=== PATIENT | female | born 1935 | race Caucasian/White ===

== ENCOUNTER → 2019-05-03 16:45 | Outpatient (CLI) | payer OTHER, SELFPAY ==
--- NOTE | 2019-05-03 | DI.MRI.S_ITS ---
PROCEDURE: MR CERVICAL SPINE WO CON INDICATIONS: Aphasia TECHNIQUE: Noncontrast sagittal T1 spin echo and T2 fast spin echo, sagittal STIR, foraminal oblique sagittal T2 fast spin echo, and axial gradient echo or T2 fast spin echo through the cervical spine. COMPARISON: None. FINDINGS: Image quality: Excellent. Alignment and Curvature: There is mild straightening of normal cervical lordosis. Minimal anterolisthesis of C7 on T1 and T1 on T2 is seen measures up to 2 mm. Bone Marrow: Marrow demonstrates normal overall signal. Vertebral body heights are preserved. Spinal Cord: Visualized spinal cord has normal size and signal. No cerebellar tonsillar herniation. Paraspinous Soft Tissues: No paravertebral masses. Prevertebral soft tissues are normal in thickness. C2-C3: Normal appearance. C3-C4: Mild broad-based disc bulge and right worse than left bilateral facet v changes are seen causing mild central canal stenosis right worse than left bilateral neuroforaminal narrowing. There is likely compression of exiting right C4 nerve root. C4-C5: Decreased intervertebral disc space and degenerative endplate changes are seen. Proptosis bulge and bilateral facet hypertrophic changes are seen causing mild to moderate central canal stenosis and right worse than left bilateral neuroforaminal narrowing. There is likely compression of exiting right C5 nerve root. C5-C6: Decreased intervertebral disc space and degenerative endplate changes are seen. Broad-based disc bulge and bilateral facet hypertrophic changes are seen causing mild/moderate central canal stenosis and bilateral neuroforaminal narrowing. There is likely compression of bilateral exiting C6 nerve roots. C6-C7: Broad-based disc bulge and bilateral facet hypertrophic changes are seen. Decreased intervertebral disc space is also noted. There is moderate central canal stenosis and moderate to severe bilateral neuroforaminal narrowing. There is likely compression of bilateral C7 nerve root. C7-T1: Normal appearance. IMPRESSION: 1. Degenerative disc bulge and bilateral facet hypertrophic changes at C3-4 through C6-7 levels causing mild to moderate central canal stenosis and right worse than left bilateral neuroforaminal narrowing as described above. 2. Minimal anterolisthesis of C7 on T1 and T1 on T2. No marrow edema. No acute compression fracture. No abnormal cervical spinal cord signal. Dictated by: Ortiz Johnson M.D. on 05/04/2019 at 9:35 Approved by: Ortiz Johnson M.D. on 05/04/2019 at 9:39
== END ==
PROVIDERS: Family Provider Family Medicine; PCP Family Medicine; Visit Provider Nurse Practitioner Family
DX: R47.01 Aphasia (principal); M50.21 Other cervical disc displacement, high cervical region; M48.02 Spinal stenosis, cervical region
CPT/HCPCS: 72141

== ENCOUNTER 2019-08-27 11:42 | Emergency (ER) | payer MEDICARE, SELFPAY ==
[2019-08-27 12:00] VITALS: BP 117/78; PULSE 98; RESP 24; TEMP 36.5; O2SAT 98; BMI 27.4
--- NOTE | 2019-08-27 12:12 | ED_ITS ---
HPI - General Adult General Chief complaint: Upper Respiratory Symptoms Stated complaint: Breathing Problems Time Seen by Provider: 08/27/19 12:12 Source: patient and family Mode of arrival: Wheelchair History of Present Illness HPI narrative: 84-year-old woman sent over from [place] with a history of recent lumbar surgery and continued radicular pain down the left leg, poor sleep due to pain, mild speech fluency difficulties after a ?TIA? approximately 1 year ago. Was apparently diagnosed with bilateral pneumonia on August 21, started on levaquin and inhalers. Frank virus was tested and that test is negative. She is increasingly short of breath, no fevers. Comes to the ER for additional evaluation. Related Data Home Medications Medication Instructions Recorded Confirmed cholecalciferol (vitamin D3) Q DAY #0 01/08/16 magnesium oxide 400 mg PO Q DAY #0 01/08/16 [BANDEROL] #0 07/13/16 [COENZYME Q 10] #0 07/13/16 [DHEA] #0 07/13/16 [HOMOCYSTINE SUPREME] #0 07/13/16 [PROBIOTIC] #0 07/13/16 [SAMENTO] #0 07/13/16 azithromycin [Zithromax Z-Doc] 250 mg PO QDAY PRN #0 07/13/16 melatonin 5 mg #0 07/13/16 vit c-ascorbate Ca-ascorb sod 500 mg PO #0 07/13/16 [Vitamin C] Previous Rx's Medication Instructions Recorded gabapentin 100 mg PO TID #90 cap 05/05/16 trazodone 100 mg PO HS #90 tab 06/11/16 gabapentin [Neurontin] 0 PO HS #30 cap 06/16/16 hydrocodone-acetaminophen 1 tab PO SEE INSTRUCTIONS #84 tab 07/13/16 furosemide [Lasix] 20 mg PO DAILY #30 tab 08/27/19 potassium chloride 10 meq PO DAILY #30 tab 08/27/19 Allergies Allergy/AdvReac Type Severity Reaction Status Date / Time No Known Drug Allergies Allergy Verified 08/27/19 15:53 Review of Systems Review of Systems Narrative: Increasing ataxia with 3 non injury falls over the last couple of days, dizziness, increased somnolence, constipation. She does note that she has continued shooting radicular pain down the left leg despite recent changes to medication regimen. Denies ? fever ? cough ? cold ? chills ? chest pain ? dyspnea ? orthopnea ? wheezing ? abdominal pain ? change to bowel or bladder habits ? nausea vomiting ? skin changes ? rashes Patient History Medical History (Updated 08/27/19 @ 15:37 by Poly Awad MD) Breast cancer (Acute) TIA (transient ischemic attack) (Acute) Surgical History (Updated 10/11/17 @ 05:32 by Conversion Provider) History of carpal tunnel repair Status post bunionectomy Status post hysterectomy Status post knee surgery Status post partial mastectomy Family History (Updated 01/08/16 @ 00:00 by Conversion Provider) Father Stroke Grandfather Stroke Social History Smoking Status: Never smoker Smoking Status: Never smoker Substance Use Type: does not use Exam Narrative Exam Narrative: General: Healthy appearing, in no acute distress. Able to give a complete and coherent history. Well-nourished well-developed HEENT: Moist mucous membranes, normal sclera with reactive pupils, Neck: No JVD, supple Respiratory: Lungs with minor scattered wheezing and minor basilar rales, no rhonchi. Full and symmetrical air movement Cardiac: Regular rate and rhythm no murmurs no bruits Abdomen: Soft nontender good bowel tones, no flank pain Skin: Warm and dry, no rashes Neurologic: Grossly neurologically intact with no obvious asymmetries or abnormalities Extremities: No trauma, well perfused, no lower extremity edema Psych: Cooperative, appropriate insight and affect Initial Vital Signs Initial Vital Signs: Vital Signs Temperature 97.7 F 08/27/19 12:00 Pulse Rate 98 H 08/27/19 12:00 Respiratory Rate 24 08/27/19 12:00 Blood Pressure 117/78 08/27/19 12:00 Pulse Oximetry 98 08/27/19 12:00 Course Orders Ordered: ED Orders 08/27/19 11:53 Respiratory Panel (Film Array) Stat 08/27/19 12:16 XR chest 1V Stat EKG-12 Lead Stat 08/27/19 13:28 Complete Blood Count AUTO DIFF Stat Comprehensive Metabolic Panel Stat Lactate (Lactic Acid) Stat Lipase Stat Magnesium Stat NT-proBNP (BNP-Adult 18+) Stat Procalcitonin Stat Troponin I Stat 08/27/19 13:37 Blood Culture Stat 08/27/19 15:09 EC echo doppler complete Stat Discontinued Medications Acetaminophen (Tylenol) 650 mg PO NOW ONE Stop: 08/27/19 15:38 Last Admin: 08/27/19 15:43 Dose: 650 mg Documented by: JASMIN Furosemide (Lasix) 40 mg IV NOW ONE Stop: 08/27/19 14:48 Last Admin: 08/27/19 15:17 Dose: 40 mg Documented by: JASMIN Gabapentin (Neurontin) 1,200 mg PO NOW ONE Stop: 08/27/19 14:39 Last Admin: 08/27/19 15:14 Dose: 300 mg Documented by: JASMIN Sodium Chloride (Normal Saline 0.9%) 1,000 mls @ 1,000 mls/hr IV BOLUS ONE Stop: 08/27/19 13:14 Last Admin: 08/27/19 13:23 Dose: 1,000 mls/hr Documented by: ANJALI Oxycodone HCl (Percolone) 5 mg PO NOW ONE Stop: 08/27/19 14:39 Last Admin: 08/27/19 14:55 Dose: 5 mg Documented by: JASMIN Vital Signs Vital signs: Vital Signs - 8 hr 08/27/19 12:00 08/27/19 14:14 08/27/19 14:35 Temperature 97.7 F Pulse Rate 98 H 91 H 91 H Respiratory Rate 24 20 Blood Pressure 117/78 Blood Pressure [Right Arm] 142/65 H 152/72 H Pulse Oximetry 98 98 100 08/27/19 16:00 Temperature Pulse Rate 92 H Respiratory Rate 18 Blood Pressure Blood Pressure [Right Arm] 136/65 Pulse Oximetry 98 Medical Decision Making Medical Records Medical records reviewed: Yes I reviewed the patient's medical records. Lab Data Lab results reviewed: Yes I reviewed the patient's lab results. Result diagrams: 08/27/19 13:28 08/27/19 13:28 Labs: Lab Results 08/27/19 08/27/19 08/27/19 Range/Units 11:53 13:28 13:28 WBC 8.7 (4.5-11.0) X10^3/uL RBC 4.26 (4.0-5.2) X10^6/uL Hgb 12.0 (12.0-16.0) g/dL Hct 37.3 (36-46) % MCV 87.5 (80-100) fL MCH 28.3 (26-34) PG MCHC 32.3 (30-36) % RDW 14.3 (11.6-14.8) % Plt Count 570 H (150-400) X10^3/uL Neut % (Auto) 76.9 H (50-75) % Lymph % (Auto) 11.0 L (25-40) % [place] % (Auto) 9.2 (3-14) % Eos % (Auto) 2.1 (2-4) % Baso % (Auto) 0.8 (0-2) % Neut # (Auto) 6600 (5144-6089) /uL Lymph # (Auto) 1000 L (4118-6239) /uL [place] # (Auto) 800 (0-900) /uL Eos # (Auto) 200 (0-450) /uL Baso # (Auto) 100 (0-100) /uL Sodium (137-145) mmol/L Potassium (3.4-5.1) mmol/L Chloride (98-107) mmol/L Carbon Dioxide (22-32) mmol/L BUN (7-17) mg/dL Creatinine (0.52-1.04) mg/dL Estimated GFR (>60) mL/min BUN/Creatinine Ratio (6-22) Glucose (80-110) mg/dL Lactate (0.7-2.1) mmol/L Calcium (8.4-10.2) mg/dL Magnesium (1.6-2.3) mg/dL Total Bilirubin (0.2-1.3) mg/dL AST (14-36) IU/L ALT (<35) IU/L Alkaline Phosphatase (38-126) U/L Troponin I (0.01-0.034) ng/mL NT-Pro-B Natriuret Pep 1980 H (<450) pg/mL Total Protein (6.3-8.2) g/dL Albumin (3.5-5.0) g/dL Globulin (1.7-4.1) g/dL Albumin/Globulin Ratio (1.0-2.8) Lipase (23-300) U/L Procalcitonin (<0.5) ng/mL Chlamy pneumoniae PCR Not detected (Not Detect) Adenovirus (PCR) Not detected (Not Detect) B.parapertussis DNA PCR Not detected (Not Detect) Coronavirus OC43 (PCR) Not detected (Not Detect) Coronavirus HKU1 (PCR) Not detected (Not Detect) Coronavirus 229E (PCR) Not detected (Not Detect) Coronavirus NL63 (PCR) Not detected (Not Detect) Human Metapneumovir PCR Not detected (Not Detect) Influenza Type A (PCR) Not detected (Not Detect) Influenza Type B (PCR) Not detected (Not Detect) M. pneumoniae (PCR) Not detected (Not Detect) Parainfluenza 1 (PCR) Not detected (Not Detect) Parainfluenza 2 (PCR) Not detected (Not Detect) Parainfluenza 3 (PCR) Not detected (Not Detect) Parainfluenza 4 (PCR) Not detected (Not Detect) RSV (PCR) Not detected (Not Detect) Entero/Rhino (PCR) Not detected (Not Detect) 08/27/19 08/27/19 08/27/19 Range/Units 13:28 13:28 13:28 WBC (4.5-11.0) X10^3/uL RBC (4.0-5.2) X10^6/uL Hgb (12.0-16.0) g/dL Hct (36-46) % MCV (80-100) fL MCH (26-34) PG MCHC (30-36) % RDW (11.6-14.8) % Plt Count (150-400) X10^3/uL Neut % (Auto) (50-75) % Lymph % (Auto) (25-40) % [place] % (Auto) (3-14) % Eos % (Auto) (2-4) % Baso % (Auto) (0-2) % Neut # (Auto) (4231-5936) /uL Lymph # (Auto) (7858-3289) /uL [place] # (Auto) (0-900) /uL Eos # (Auto) (0-450) /uL Baso # (Auto) (0-100) /uL Sodium 133 L (137-145) mmol/L Potassium 4.3 (3.4-5.1) mmol/L Chloride 97 L (98-107) mmol/L Carbon Dioxide 29 (22-32) mmol/L BUN 11 (7-17) mg/dL Creatinine 0.97 (0.52-1.04) mg/dL Estimated GFR 54.8 L (>60) mL/min BUN/Creatinine Ratio 11.3 (6-22) Glucose 91 (80-110) mg/dL Lactate 1.0 (0.7-2.1) mmol/L Calcium 9.5 (8.4-10.2) mg/dL Magnesium 2.7 H (1.6-2.3) mg/dL Total Bilirubin 0.5 (0.2-1.3) mg/dL AST 45 H (14-36) IU/L ALT 33 (<35) IU/L Alkaline Phosphatase 132 H (38-126) U/L Troponin I 0.016 (0.01-0.034) ng/mL NT-Pro-B Natriuret Pep (<450) pg/mL Total Protein 7.0 (6.3-8.2) g/dL Albumin 3.9 (3.5-5.0) g/dL Globulin 3.1 (1.7-4.1) g/dL Albumin/Globulin Ratio 1.3 (1.0-2.8) Lipase 88 (23-300) U/L Procalcitonin < 0.05 (<0.5) ng/mL Chlamy pneumoniae PCR (Not Detect) Adenovirus (PCR) (Not Detect) B.parapertussis DNA PCR (Not Detect) Coronavirus OC43 (PCR) (Not Detect) Coronavirus HKU1 (PCR) (Not Detect) Coronavirus 229E (PCR) (Not Detect) Coronavirus NL63 (PCR) (Not Detect) Human Metapneumovir PCR (Not Detect) Influenza Type A (PCR) (Not Detect) Influenza Type B (PCR) (Not Detect) M. pneumoniae (PCR) (Not Detect) Parainfluenza 1 (PCR) (Not Detect) Parainfluenza 2 (PCR) (Not Detect) Parainfluenza 3 (PCR) (Not Detect) Parainfluenza 4 (PCR) (Not Detect) RSV (PCR) (Not Detect) Entero/Rhino (PCR) (Not Detect) Urine Dip Bedside Urine Glucose Negative Bedside Urine Bilirubin - Negative Bedside Urine Ketone - Negative Urine Specific [place] 1.015 Bedside Urine Occult Blood - Negative Bedside Urine pH 7.0 Bedside Urine Protein - Negative Bedside Urine Urobilinogen - Negative Bedside Urine Nitrite - Negative Bedside Urine Leukocytes - Negative Esterase Point of care testing: Urine Dip Bedside Urine Glucose Negative Bedside Urine Bilirubin - Negative Bedside Urine Ketone - Negative Urine Specific [place] 1.015 Bedside Urine Occult Blood - Negative Bedside Urine pH 7.0 Bedside Urine Protein - Negative Bedside Urine Urobilinogen - Negative Bedside Urine Nitrite - Negative Bedside Urine Leukocytes - Negative Esterase Imaging Data Chest x-ray: Radiologist's Impression: IMPRESSION: Mild congestive changes and small bilateral pleural effusion with bibasilar small infiltrates or atelectasis. No gross pneumothorax. Dictated by: Ortiz Johnson M.D. on 08/27/2019 at 12:59 ECG Data Attestation: I personally reviewed and interpreted this ECG as follows: Interpretation: Sinus rhythm at a rate of 91 Normal intervals, normal axis No acute ischemic changes MDM Narrative Medical decision making narrative: 84-year-old woman recently diagnosed with a bilateral pneumonia not getting better with antibiotics. Clinical exam is quite benign with normal heart rate and oxygen saturations on room air. Chest x-ray has mild interstitial findings and small bibasilar effusions. BNP is elevated. I suspect that this is more presentation of mild heart failure rather than infectious etiology. Will place her on Lasix and potassium and ask her to follow-up with her primary care physician in the next couple of days Medication review. She currently is on levofloxacin which will be discontinued 1200 mg of gabapentin morning and noon with Lyrica and as needed cyclobenzaprine at night Up to 4 tablets of oxycodone a day Recent addition of is an inhaler In reviewing medications in light of review of systems increasing falls and ataxia as well as inadequate pain control and heart failure rather than p neumonia will make a number of significant changes. See discharge instructions below. Care is reviewed with Sofia CHINO on [place]. Discharge Plan Departure Patient Disposition: Home Clinical Impression: CHF (congestive heart failure) Qualifiers: Heart failure type: unspecified Heart failure chronicity: acute Qualified Code(s): I50.9 - Heart failure, unspecified Instructions: DI for Heart Failure Activity Restrictions/Additional Instructions: Thank you for coming over today. I am happy to let you know that I am not seeing any evidence of pneumonia or infectious disease at this time. It is okay to stop the levafloxacin as well as the inhalers you are using You do have a new diagnosis of congestive heart failure. For this I am going to add 20 mg of Lasix(a water pill) and 10 mEq of potassium(because the Lasix makes you lose potassium). This will make you pee all lot. That is its purpose. Please take it in the morning rather than the evenings so that your able to sleep. Regarding the back pain that you have been having. I am concerned that the combination of gabapentin cyclobenzaprine and Lyrica is not effective for pain control for you and is causing significant side effects. Please decrease your gabapentin to 300 mg in the morning and 300 mg at bedtime. Please stop the Lyrica and the cyclobenzaprine. I know that this sounds like a significant change however your still having the pain with those current doses and you are having significant side effects from the medications. The shooting nerve pain you are having are very difficult to treat and often, just adding more pain medication simply doesn't work. I also recommend that you put all of your medications in to a pill dispenser. Taking more than 1 pill a day gets complicated and missing or accidentally taking extra medications can cause multiple issues. Your new medication list should look like Mornin mg of gabapentin(half of the current pill that you are taking) 20 mg of Lasix(new) Ten mEq of potassium(new) 40 mg duloxetine One magnesium Lidocaine ointment if desired Bedtime: 300 mg of gabapentin (half of the current pill that you are taking) Melatonin 2mg You can use one pain pill every 8 hours as needed through the day. You can take tylenol with the oxycodone and can even try tylenol alone to help with acute pain. (stop lyrica, cyclobenaprine, inhaler, levofloxacin) I have reviewed all of this with MATTI Samano and she is in agreement with our new care plan. She would like to see you on at 9:50 a.m. in the morning to follow-up on all of these changes I did try to arrange an echocardiogram will your over here today. Unfortunately that is not physically possible until tomorrow. I will leave the arranging of your echocardiogram to Sofia Downing to schedule on an outpatient basis. I hope you feel better. Prescriptions: New furosemide [Lasix] 20 mg tablet 20 mg PO DAILY Qty: 30 RF: 0 potassium chloride 10 mEq tablet extended release 10 meq PO DAILY Qty: 30 RF: 0 No Action cholecalciferol (vitamin D3) 400 UNIT/1 ML drops Q DAY Qty: 0 RF: 0 magnesium oxide 400 MG capsule 400 mg PO Q DAY Qty: 0 RF: 0 gabapentin 100 MG capsule 100 mg PO TID Qty: 90 RF: 1 trazodone 100 MG tablet 100 mg PO HS Qty: 90 RF: 1 gabapentin [Neurontin] 300 MG capsule 0 PO HS Qty: 30 RF: 0 azithromycin [Zithromax Z-Doc] 250 MG tablet 250 mg PO QDAY PRNQty: 0 RF: 0 [COENZYME Q 10] Qty: 0 RF: 0 [DHEA] Qty: 0 RF: 0 [PROBIOTIC] Qty: 0 RF: 0 melatonin 5 MG tablet 5 mg Qty: 0 RF: 0 vit c-ascorbate Ca-ascorb sod [Vitamin C] 500 MG/15 ML liquid 500 mg PO Qty: 0 RF: 0 [BANDEROL] Qty: 0 RF: 0 [HOMOCYSTINE SUPREME] Qty: 0 RF: 0 [SAMENTO] Qty: 0 RF: 0 hydrocodone-acetaminophen 10 MG/325 MG tablet 1 tab PO SEE INSTRUCTIONS Qty: 84 RF: 0 Referrals: Bobby Zuluaga MD [Primary Care Provider] -
--- NOTE | 2019-08-27 12:16 | DI.RAD.S_ITS ---
PROCEDURE: XR CHEST 1V INDICATIONS: Increasing dyspnea after bilateral pneumonia diagnosis TECHNIQUE: One view of the chest was acquired. COMPARISON: None. FINDINGS: Surgical changes and devices: None. Lungs and pleura: There is small right pleural effusion and trace left pleural effusion with bibasilar small infiltrates/atelectasis. Mild pulmonary vascular congestion is also seen. No gross pneumothorax. Mediastinum: Mediastinal contours appear normal. Heart size is enlarged. Bones and chest wall: No suspicious bony lesions. Overlying soft tissues appear unremarkable. IMPRESSION: Mild congestive changes and small bilateral pleural effusion with bibasilar small infiltrates or atelectasis. No gross pneumothorax. Dictated by: Ortiz Johnson M.D. on 08/27/2019 at 12:59 Approved by: Ortiz Johnson M.D. on 08/27/2019 at 13:01
[2019-08-27] MEDS: SODIUM CHLORIDE 0.9% 1,000 ML 1000 ML IV (13:23)
[2019-08-27 13:36] LABS: Add Manual Diff / Slide Review NO; Basophils Absolute Auto 100 /uL (0-100); Basophils Percent Auto 0.8 % (0-2); Eosinophils Absolute Auto 200 /uL (0-450); Eosinophils Percent Auto 2.1 % (2-4); Hematocrit 37.3 % (36-46); Lymphocytes Absolute Auto 1000 /uL (1100-4500); Mean Corpuscular HGB Conc 32.3 % (30-36); Mean Corpuscular Hemoglobin 28.3 PG (26-34); Mean Corpuscular Volume 87.5 fL (80-100); Monocytes Absolute Auto 800 /uL (0-900); Monocytes Percent Auto 9.2 % (3-14); Neutrophils Absolute Auto 6600 /uL (1500-7000); Neutrophils Percent Auto 76.9 % (50-75); Platelet Count 570 X10^3/uL (150-400); Red Blood Cell Count 4.26 X10^6/uL (4.0-5.2); Red Cell Distribution Width 14.3 % (11.6-14.8); White Blood Cell Count 8.7 X10^3/uL (4.5-11.0)
[2019-08-27 14:05] LABS: Alanine Aminotransferase 33 IU/L (<35); Albumin 3.9 g/dL (3.5-5.0); Albumin Globulin Ratio 1.3 (1.0-2.8); Alkaline Phosphatase 132 U/L (38-126); Aspartate Aminotransferase 45 IU/L (14-36); BUN Creatinine Ratio 11.3 (6-22); Bilirubin Total 0.5 mg/dL (0.2-1.3); Blood Urea Nitrogen 11 mg/dL (7-17); Calcium 9.5 mg/dL (8.4-10.2); Carbon Dioxide 29 mmol/L (22-32); Chloride 97 mmol/L (98-107); Estimated Glomerular Filt Rate 54.8 mL/min (>60); Globulin 3.1 g/dL (1.7-4.1); Glucose 91 mg/dL (80-110); HEMOLYSIS < 15 (0-50); Lipase 88 U/L (23-300); Magnesium 2.7 mg/dL (1.6-2.3); Potassium 4.3 mmol/L (3.4-5.1); Sodium 133 mmol/L (137-145)
[2019-08-27 14:14] VITALS: BP 142/65; PULSE 91; RESP 20; O2SAT 98
[2019-08-27 14:14] LABS: NT-proBNP (BNP-Adult 18+) 1980 pg/mL (<450)
[2019-08-27 14:16] LABS: Troponin I 0.016 ng/mL (0.01-0.034)
[2019-08-27 14:32] LABS: Procalcitonin < 0.05 ng/mL (<0.5)
[2019-08-27 14:35] VITALS: BP 152/72; PULSE 91; O2SAT 100
[2019-08-27 14:35] LABS: Adenovirus Not Detected (Not Detect); Bordetella pertussis Not Detected (Not Detect); Chlamydophila pneumoniae Not Detected (Not Detect); Coronavirus 229E Not Detected (Not Detect); Coronavirus HKU1 Not Detected (Not Detect); Coronavirus NL 63 Not Detected (Not Detect); Coronavirus OC43 Not Detected (Not Detect); Human Metapneumovirus Not Detected (Not Detect); Human Rhinovirus/Enterovirus Not Detected (Not Detect); Influenza A Not Detected (Not Detect); Influenza B Not Detected (Not Detect); Mycoplasma pneumoniae Not Detected (Not Detect); Parainfluenza Virus 1 Not Detected (Not Detect); Parainfluenza Virus 2 Not Detected (Not Detect); Parainfluenza Virus 3 Not Detected (Not Detect); Parainfluenza Virus 4 Not Detected (Not Detect); Respiratory Syncytial Virus Not Detected (Not Detect)
[2019-08-27] MEDS: OXYCODONE IR 5 MG TABLET PO (14:55)
[2019-08-27] MEDS: GABAPENTIN 600 MG TABLET 1200 MG PO (15:14)
[2019-08-27] MEDS: FUROSEMIDE 40 MG/4 ML VIAL IV (15:17)
[2019-08-27] MEDS: ACETAMINOPHEN 325 MG TABLET 650 MG PO (15:43)
[2019-08-27 16:00] VITALS: BP 136/65; PULSE 92; RESP 18; O2SAT 98
--- NOTE | 2019-09-13 22:52 | PC.NURSE ---
Late Entry: IV NS Bolus infused at 1425 hrs.
== END 2019-08-27 16:39 | disposition home or self-care (01) ==
PROVIDERS: Emergency Provider Emergency Medicine; Family Provider Family Medicine; PCP Family Medicine
DX: I11.0 Hypertensive heart disease with heart failure (principal); I50.9 Heart failure, unspecified; J18.9 Pneumonia, unspecified organism
CPT/HCPCS: 36415; 71045; 80053; 81003; 83605; 83690; 83735; 83880; 84145; 84484; 85025; 87040; 87633; 93005; 96361; 96374; 99284; J1940

== ENCOUNTER → 2019-09-18 13:16 | Outpatient (CLI) | payer MEDICARE, SELFPAY ==
--- NOTE | 2019-09-18 | DI.ECHO.S_ITS ---
[facility] +---------+ : : [address] : [place] : : : : [id number] : : : : Phone: [phone]+ Echocardiogram Report + + :Name: MAKI BAUER Study Date: 09/18/2019 Height: 64 in : :[facility] Weight: 145 lb : : Gender: Female BSA: 1.7 m2 : :: 1935 Age: 84 yrs BP: 142/76 mmHg: :Reason For Study: heart failure : : Performed By: Latisha Seth : :Referring: OBED PAL L : + + Interpretation Summary Left ventricular systolic function is normal without focal wall motion abnormalities with the ejection fraction visually estimated to be 60-65%. There is mild-moderate concentric left ventricular hypertrophy. Diastolic function could not be accurately assessed due to contradictory data. The right ventricle is borderline dilated and systolic function is at the lower limits of normal. The right ventricular systolic pressure is estimated to be at least 35 mmHg based on an estimated right atrial pressure of 3 mm Hg. The left atrium is borderline dilated while right atrial size is normal. The interatrial septum is intact with no visual evidence for an atrial septal defect. Doppler interrogation and injection of saline echo contrast shows no evidence for an interatrial shunt. The anterior mitral valve leaflet appears moderately thickened and slightly calcified with an appearance that could reflect rheumatic valve disease. There is likely slight mitral stenosis with a mitral valve mean gradient of 5.4 mmHg. There is mild to moderate mitral regurgitation with an eccentric jet of mitral regurgitation that is directed posteriorly. There is mild tricuspid regurgitation. There is no other significant valvular heart disease. Procedure: A two-dimensional transthoracic echocardiogram with color flow and Doppler was performed. The study quality was technically adequate. There is no prior echocardiogram noted for this patient. A saline contrast injection was performed to assess for cardiac shunting. The injection was performed through an intravenous line in the left arm. The patient was in normal sinus rhythm during the exam. Left Ventricle: The left ventricle is normal in size. There is mild-moderate concentric left ventricular hypertrophy. Left ventricular systolic function is normal without focal wall motion abnormalities. The ejection fraction is estimated to be 60-65%. Diastolic function could not be accurately assessed due to contradictory data. Right Ventricle: The right ventricle is borderline dilated. Right ventricular systolic function is at the lower limits of normal. Atria: The left atrium is borderline dilated. Right atrial size is normal. The interatrial septum is intact with no evidence for an atrial septal defect. Doppler interrogation and injection of saline echo contrast shows no evidence for an interatrial shunt. Mitral Valve: There is mild mitral annular calcification. The mitral valve leaflets appear moderately thickened, but open well. The mitral valve leaflets are slightly calcified. with an appearance that could refelect rheumatic valve disease. There is mild mitral stenosis. The mitral valve mean gradient is 5.4 mmHg. There is mild to moderate mitral regurgitation. There is an eccentric jet of mitral regurgitation that is directed posteriorly. Aortic Valve: The aortic valve is trileaflet. The aortic valve is slightly calcified. The aortic valve opens well. There is no aortic valve stenosis. No aortic regurgitation is present. Tricuspid Valve: The tricuspid valve is normal in structure and function. There is mild tricuspid regurgitation. The right ventricular systolic pressure is estimated to be at least 35 mmHg based on an estimated right atrial pressure of 3 mm Hg. Pulmonic Valve: The pulmonic valve is normal in structure and function. There is no pulmonic valvular regurgitation. There is no other significant valvular heart disease. Great Vessels: The aortic root is normal size. The ascending aorta is normal in size. The IVC is of normal diameter and collapses greater than 50% with a sniff. This suggests a low right atrial pressure of 3 mm Hg. Pericardium/ Pleura There is no pericardial effusion. There is no pleural effusion. MMode/2D Measurements & Calculations LVIDd: 4.5 cm LVOT diam: 2.0 cm LVIDs: 3.0 cm Ao root diam: 2.9 cm FS: 33.7 % asc Aorta Diam: 3.2 cm EPSS: 0.64 cm IVSd: 1.3 cm LVPWd: 1.1 cm LV collado. diameter/BSA (cm/m^2): 2.6 LV sys. diameter/BSA (cm/m^2): 1.7 LA A2 area: 19.8 cm2 RA long axis: 5.1 cm LA A4 area: 18.5 cm2 RA area: 16.5 cm2 LA length (vol): 5.4 cm RA vol: 44.9 ml LA vol: 57.4 ml RA : 26.3 ml/m2 LA vol index: 33.7 ml/m2 IVC diam: 1.8 cm RVD1 (basal): 3.6 cm TAPSE: 1.9 cm Doppler Measurements & Calculations Ao V2 max: 156.1 cm/sec LVOT Max Kristofer: 88.6 cm/sec Ao V2 mean: 107.4 cm/sec LV V1 max P.1 mmHg Ao max P.7 mmHg LV V1 VTI: 18.6 cm Ao mean P.2 mmHg AMBAR(I,D): 1.9 cm2 Ao V2 VTI: 32.0 cm AMBAR(V,D): 1.8 cm2 sev ratio: 0.58 AMBAR indexed to BSA (cm^2/m^2): 1.1 MV E max kristofer: 183.8 cm/sec TR max kristofer: 283.4 cm/sec MV A max kristofer: 122.1 cm/sec TR max P.2 mmHg MV E/A: 1.5 PA V2 max: 93.0 cm/sec Med Peak E' Kristofer: 7.7 cm/sec PA V2 mean: 63.3 cm/sec E/E' med: 23.9 PA mean P.9 mmHg Lat Peak E' Kristofer: 10.4 cm/sec PA pr(Accel): 43.2 mmHg E/E' lat: 17.6 PA Accel Time: 0.08 sec E/e' average: 20.8 MV dec time: 0.19 sec MVA(VTI): 1.4 cm2 MV V2 mean: 109.2 cm/sec SV(LVOT): 60.0 ml MV mean P.4 mmHg MV V2 VTI: 43.3 cm Reading Physician:PM
== END ==
PROVIDERS: Family Provider Family Medicine; PCP Family Medicine; Referring Provider Nurse Practitioner Family; Visit Provider Nurse Practitioner Family
DX: I08.1 Rheumatic disorders of both mitral and tricuspid valves (principal); I50.9 Heart failure, unspecified
CPT/HCPCS: 93306

== ENCOUNTER → 2019-10-30 12:07 | Outpatient (CLI) | payer MEDICARE, SELFPAY ==
--- NOTE | 2019-10-30 12:12 | DI.MRI.S_ITS ---
PROCEDURE: MR LUMBAR SPINE WO/W CON INDICATIONS: Spinal stenosis, lumbar region with neurogenic cla TECHNIQUE: Noncontrast sagittal T1 spin echo and T2 fast spin echo, sagittal STIR, axial T1 and T2 fast spin echo through the lumbar spine. In cases with scoliosis, additional coronal T2 fast spin echo may be performed. After the administration of contrast, sagittal and axial T1 spin echo with fat saturation through the lumbar spine. COMPARISON: None. FINDINGS: Image quality: Excellent. Alignment and curvature: Grade 1 retrolisthesis of L1 on L2 and L2 on L3. Grade 1 anterolisthesis of L4 on L5 Marrow: Postsurgical change is suspected at the L4-L5 level related to right sided laminotomy. Multilevel degenerative endplate sclerosis and spurring. Endplate signal changes at T12-L1 presumably degenerative. Diffuse facet arthropathy. Scattered small Schmorl's nodes. No acute vertebral body compression fractures. No suspicious marrow enhancement. Spinal cord: Conus medullaris terminates at the L1-L2 level. Visualized spinal cord demonstrates normal signal, without suspicious enhancement. Paraspinous soft tissues: No paravertebral masses. There is enhancement in the region of the suspected L4-L5 right laminotomy. A possible 4 mm seroma or hematoma is seen on image 9/7, indeterminate. L1-L2: Moderate canal stenosis. Partial effacement of both lateral recesses with asymmetric appearance, right greater than left. Moderate to severe bilateral foraminal stenosis with nerve root compression . L2-L3: Mild canal narrowing. Partial effacement of both lateral recesses with bilaterally symmetric appearance. Severe bilateral foraminal stenoses with nerve root compression L3-L4: Severe canal stenosis. Partial effacement of both lateral recesses with asymmetric appearance, left greater than right. Severe left foraminal stenosis with nerve root compression. Moderate right foraminal narrowing with nerve root compression. L4-L5: Moderate residual canal narrowing. Severe bilateral foraminal stenoses with nerve root compression. L5-S1: Moderate canal narrowing. Partial effacement of both lateral recesses with bilaterally symmetric appearance. Moderate to severe bilateral foraminal narrowing with nerve root compression. IMPRESSION: Multilevel severe lumbar spondylosis and spondylolisthesis as above Diffuse bilateral foraminal stenoses as detailed above by spinal level Postsurgical changes presumably from right-sided L4-L5 laminotomy. Ill-defined postsurgical enhancement/granulation tissue within the operative bed although no definite extension to the canal or foraminal stenoses Dictated by: Tadeo King M.D. on 10/30/2019 at 15:12 Approved by: Tadeo King M.D. on 10/30/2019 at 15:39
== END ==
PROVIDERS: Family Provider Family Medicine; PCP Family Medicine; Referring Provider Neurological Surgery; Visit Provider Neurological Surgery
DX: M48.062 Spinal stenosis, lumbar region with neurogenic claudication (principal); M47.816 Spondylosis without myelopathy or radiculopathy, lumbar region; M43.16 Spondylolisthesis, lumbar region
CPT/HCPCS: 72158

== ENCOUNTER 2020-05-13 09:19 | Day surgery (SDC) | payer MEDICARE, SELFPAY ==
[2020-05-13] MEDS: PROPARACAINE 0.5% OPHTH SOL 2 DROPS EYE-OP (10:29)
[2020-05-13] MEDS: CATARACT EYE COMPOUND (10 DROPS/SYRINGE) 3 DROPS EYE-OP (10:32)
[2020-05-13 10:33] VITALS: BP 142/64; PULSE 65; RESP 16; TEMP 36.6; O2SAT 100; BMI 25.7
--- NOTE | 2020-05-13 10:58 | SUR.PREOP ---
Pt is a poor historian regarding medications, did not complete med rec because she isn't sure. C/o pain, states that the meds don't help. States that she takes 500mg of something, thinks it might be tylenol. Spouse here. Encouraged them to always take med list with them when they go to the hospital or dr bryan. States that her memory is improving from what it was during her CHF incident and flight to [place] early in the summer.
[2020-05-13] MEDS: ACETAMINOPHEN 325 MG TABLET 975 MG PO (11:20)
--- NOTE | 2020-05-13 11:44 | PM.PREOP ---
Pre-operative Note Interval Note History & Physical reviewed/Exam performed by Physician: Yes Changes to H&P: No
--- NOTE | 2020-05-13 11:44 | PM.OP.1 ---
Operative Date/Time/Diagnoses Pre-op diagnosis: Nuclear cataract right eye Procedure & Clinicians Procedure: Cataract Surgery Same procedure as scheduled: Yes Surgeon: Dru Cedillo Anesthesia Type: MAC +/- and Sedation Operative Notes Procedure in detail: Patient brought to the operating suite. Tetracaine drops placed in the right eye. Patient was prepped and draped in sterile manner. Wire lid speculum was placed in the eye. Betadine drops were placed on the eye. This was irrigated. Lidocaine jelly was placed on the eye. A paracentesis port was created with a side-port blade. 0.1 mL 1% preservative free lidocaine was injected into the anterior chamber. The anterior chamber was deepened with viscoelastic. 2.6 mm keratome was used to create a temporal clear corneal incision. Cystotome and Utrata forceps were used to create continuous tear capsulorrhexis. Balanced salt solution was used to hydro dissect the nucleus. The phacoemulsification handpiece was inserted and the nucleus was removed using the stop and chop technique. The irrigation aspiration handpiece was inserted and the remaining cortex was removed. Anterior chamber was deepened with viscoelastic. An Krause [id number] intraocular lens with a power of 22.0 was injected into the capsular bag. Irrigation aspiration handpiece was inserted and the remaining viscoelastic was removed. Incision was hydrated with balanced salt solution and found to be leak free with pressure with Weck-Kristyn sponges. 0.1 mL Vigamox injected anterior chamber. 0.3 mL Kenalog 10 mg was injected subconjunctivally. Lid speculum was removed. The patient left the operating room in excellent condition. Complications: none Post-operative Condition: stable Disposition: same day surgery
[2020-05-13] MEDS: MOXIFLOXACIN INJ 5 MG/ML VIAL EYE-OP (12:03)
[2020-05-13] MEDS: PHENYLEPHRINE/LIDOCAINE VIAL (OR) 0.2 ML EYE-OP (12:03)
[2020-05-13] MEDS: LIDOCAINE JELLY 2% 5 ML 1 APPLIC TOP (12:04)
[2020-05-13] MEDS: TRIAMCINOLONE 50 MG/5 ML VIAL INJ (12:04)
[2020-05-13] MEDS: TETRACAINE 0.5% OPHTH DROPS 4 ML 2 DROPS EYE-OP (12:05)
[2020-05-13] MEDS: BALANCED SALT IRRIG SOLN NO.2 500 ML, EPINEPHrine 1 MG IRR (12:05)
[2020-05-13] MEDS: CHONDROIDTIN/SOD HYALURONATE 1.05 ML SYRINGE INTRAOCULA (12:05)
[2020-05-13 12:43] VITALS: BP 117/58; PULSE 67; RESP 13; TEMP 36.5; O2SAT 99
--- NOTE | 2020-05-13 13:19 | SUR.PHASEII ---
1214 to OPD on a stretcher, very drowsy, responsive to voice. Juice given. Spouse at bedside. Denies pain/nausea
== END 2020-05-13 12:54 | disposition home or self-care (01) ==
PROVIDERS: Family Provider Family Medicine; PCP Nurse Practitioner Family; Referring Provider Ophthalmology; Visit Provider Ophthalmology
PROC: (CPT 66984; principal; 2020-05-13 12:15)
DX: H25.11 Age-related nuclear cataract, right eye (principal)
CPT/HCPCS: 66984; J0171; J2250; J3010; J3301; V2787

== ENCOUNTER → 2020-05-14 12:37 | Outpatient (CLI) | payer MEDICARE, SELFPAY ==
[2020-05-14 13:20] LABS: Add Manual Diff / Slide Review NO; Basophils Absolute Auto 0 /uL (0-100); Basophils Percent Auto 0.2 % (0-2); Eosinophils Absolute Auto 0 /uL (0-450); Eosinophils Percent Auto 0.2 % (2-4); Hematocrit 40.7 % (36-46); Hemoglobin 12.9 g/dL (12.0-16.0); Lymphocytes Absolute Auto 1100 /uL (1100-4500); Lymphocytes Percent Auto 12.1 % (25-40); Mean Corpuscular HGB Conc 31.8 % (30-36); Mean Corpuscular Hemoglobin 29.6 PG (26-34); Mean Corpuscular Volume 93.3 fL (80-100); Monocytes Absolute Auto 500 /uL (0-900); Monocytes Percent Auto 5.3 % (3-14); Neutrophils Absolute Auto 7500 /uL (1500-7000); Neutrophils Percent Auto 82.2 % (50-75); Platelet Count 346 X10^3/uL (150-400); Red Blood Cell Count 4.36 X10^6/uL (4.0-5.2); Red Cell Distribution Width 13.9 % (11.6-14.8); White Blood Cell Count 9.2 X10^3/uL (4.5-11.0)
[2020-05-14 13:27] LABS: Hemoglobin A1C% w Est Avg Glu 5.5 % (4.0-6.0)
[2020-05-14 13:41] LABS: BUN Creatinine Ratio 23.7 (6-22); Blood Urea Nitrogen 27 mg/dL (7-17); Calcium 8.8 mg/dL (8.4-10.2); Carbon Dioxide 29 mmol/L (22-32); Chloride 101 mmol/L (98-107); Estimated Glomerular Filt Rate 45.4 mL/min (>60); Glucose 117 mg/dL (80-110); HEMOLYSIS < 15 (0-50); Potassium 4.5 mmol/L (3.4-5.1); Sodium 136 mmol/L (137-145)
== END ==
PROVIDERS: Family Provider Family Medicine; PCP Nurse Practitioner Family; Referring Provider Orthopaedic Surgery Adult Reconstructive Orthopaedic Surgery; Visit Provider Orthopaedic Surgery Adult Reconstructive Orthopaedic Surgery
DX: Z01.818 Encounter for other preprocedural examination (principal); R73.9 Hyperglycemia, unspecified; Z01.812 Encounter for preprocedural laboratory examination
CPT/HCPCS: 36415; 80048; 83036; 85025; 93005

== ENCOUNTER 2020-05-27 11:25 | Day surgery (SDC) | payer MEDICARE, SELFPAY ==
[2020-05-27] MEDS: PROPARACAINE 0.5% OPHTH SOL 2 DROPS EYE-OP (11:55)
[2020-05-27] MEDS: CATARACT EYE COMPOUND (10 DROPS/SYRINGE) 3 DROPS EYE-OP (11:58)
--- NOTE | 2020-05-27 12:01 | SUR.PREOP ---
Poor historian regarding medications - takes a pill pack. Stressed the importance of bringing an accurate med list when she comes for her DUSTIN later this month.
[2020-05-27 12:03] VITALS: BP 145/73; PULSE 72; RESP 16; TEMP 36.8; O2SAT 94
[2020-05-27 12:21] VITALS: BMI 26.6
--- NOTE | 2020-05-27 12:35 | PM.PREOP ---
Pre-operative Note Interval Note History & Physical reviewed/Exam performed by Physician: Yes Changes to H&P: No
--- NOTE | 2020-05-27 12:36 | P.OP_ITS ---
Operative Date/Time/Diagnoses Pre-op diagnosis: Nuclear Cataract Left eye Post-op diagnosis: same Procedure & Clinicians Same procedure as scheduled: Yes Surgeon: Dru Cedillo Anesthesia Type: MAC +/- and Sedation Operative Notes Procedure in detail: Patient brought to the operating suite. Tetracaine drops placed in the left eye. Marking instrument was used to keshia the vertical and horizontal meridians. Patient was prepped and draped in sterile manner. Wire lid speculum was placed in the eye. Betadine drops were placed on the eye. This was irrigated. Lidocaine jelly was placed on the eye. A paracentesis port was created with a side-port blade. 0.1 mL 1% preservative free lidocaine was injected into the anterior chamber. The anterior chamber was deepened with viscoelastic. 2.6 mm keratome was used to create a temporal clear corneal incision. Cystotome and Utrata forceps were used to create continuous tear capsulorrhexis. Balanced salt solution was used to hydro dissect the nucleus. The phacoemulsification handpiece was inserted and the nucleus was removed using the stop and chop technique. The irrigation aspiration handpiece was inserted a nd the remaining cortex was removed. Anterior chamber was deepened with viscoelastic. An Krause [id number] intraocular lens with a power of 22.5 was injected into the capsular bag. Irrigation aspiration handpiece was inserted and the remaining viscoelastic was removed. The lens was rotated to the 180 degree meridian. Incision was hydrated with balanced salt solution and found to be leak free with pressure with Weck-Kristyn sponges. 0.1 mL Vigamox injected anterior chamber. 0.3 mL Kenalog 10 mg was injected subconjunctivally. Lid speculum was removed. The patient left the operating room in excellent condition. Complications: none Post-operative Condition: stable Disposition: same day surgery
[2020-05-27] MEDS: TRIAMCINOLONE 50 MG/5 ML VIAL INJ (12:55)
[2020-05-27] MEDS: MOXIFLOXACIN INJ 5 MG/ML VIAL EYE-OP (12:55)
[2020-05-27] MEDS: PHENYLEPHRINE/LIDOCAINE VIAL (OR) 0.2 ML EYE-OP (12:55)
[2020-05-27] MEDS: BALANCED SALT IRRIG SOLN NO.2 500 ML, EPINEPHrine 1 MG IRR (12:56)
[2020-05-27] MEDS: LIDOCAINE JELLY 2% 5 ML 1 APPLIC TOP (12:56)
[2020-05-27] MEDS: CHONDROIDTIN/SOD HYALURONATE 1.05 ML SYRINGE INTRAOCULA (12:56)
[2020-05-27] MEDS: TETRACAINE 0.5% OPHTH DROPS 4 ML 2 DROPS EYE-OP (12:56)
[2020-05-27 13:10] VITALS: BP 134/71; PULSE 69; RESP 16; TEMP 36.6; O2SAT 97
--- NOTE | 2020-05-27 13:14 | SUR.PHASEII ---
Pt arrived from OR to Phase 2, very sleepy, could not hold head up and would fall sleep easily. VSS. Pt placed on stretcher. Call brower near by.
[2020-05-27 13:23] VITALS: BP 139/71; PULSE 66; RESP 14; O2SAT 98
[2020-05-27 13:31] VITALS: PULSE 68; O2SAT 99
--- NOTE | 2020-05-27 13:31 | SUR.PHASEII ---
called to sit with pt still she is more awake.
--- NOTE | 2020-05-27 13:36 | SUR.PHASEII ---
at bedside- supportive.
[2020-05-27 13:44] VITALS: BP 134/70; PULSE 69; RESP 16; TEMP 36.6; O2SAT 99
--- NOTE | 2020-05-27 13:46 | SUR.PHASEII ---
Pt still appears drowsy, states pt is at baseline, dressed with his assist. Left ubnit when ready and in stable condition.
== END 2020-05-27 13:50 | disposition home or self-care (01) ==
PROVIDERS: Family Provider Family Medicine; PCP Nurse Practitioner Family; Referring Provider Nurse Practitioner Family; Visit Provider Ophthalmology
PROC: (CPT 66984; principal; 2020-05-27 12:45)
DX: H25.812 Combined forms of age-related cataract, left eye (principal)
CPT/HCPCS: 66984; J0171; J2250; J3010; J3301; V2787

== ENCOUNTER → 2020-06-07 11:15 | Outpatient (CLI) | payer MEDICARE, SELFPAY ==
[2020-06-07 11:53] LABS: COVID19 -Nasal RAPID Negative (Negative)
== END ==
PROVIDERS: Family Provider Family Medicine; PCP Nurse Practitioner Family; Visit Provider Physician Assistant
DX: Z01.812 Encounter for preprocedural laboratory examination (principal); Z20.828 Contact with and (suspected) exposure to other viral communicable diseases
CPT/HCPCS: 87635; C9803

== ENCOUNTER 2020-06-10 14:27 | Observation (INO) | payer MEDICARE, SELFPAY ==
[2020-06-03 11:47] VITALS: BMI 26.4
[2020-06-09] VITALS (12 sets, daily range): BP systolic 97–141; BP diastolic 35–76; PULSE 75–93; RESP 12–20; TEMP 35.8–36.7; O2SAT 96–100; BMI 26.4
--- NOTE | 2020-06-09 | DI.RAD.S_ITS ---
PROCEDURE: XR HIP RT 1V INDICATIONS: RIGHT ATNERIOR HIP TECHNIQUE: 2 view(s) of the hip acquired. COMPARISON: [facility], CR, XR PELVIS WITH BILATERAL LATERAL HIPS, 04/11/2020, 14:01. FINDINGS: Bones: Patient is status post right hip arthroplasty, with hardware components in expected positions. The hip joint appears congruent. The visualized bony structures appear intact. Soft tissues: Overlying postoperative changes are noted. No suspicious soft tissue densities. IMPRESSION: Right total hip arthroplasty, normal alignment. Dictated by: Owen Velasquez M.D. on 06/09/2020 at 13:43 Approved by: Owen Velasquez M.D. on 06/09/2020 at 13:44
--- NOTE | 2020-06-09 | DI.RAD.S_ITS ---
PROCEDURE: XR PELVIS 1-2V INDICATIONS: post op TECHNIQUE: 1 view of the lower pelvis acquired. COMPARISON: None. FINDINGS: Bones: Patient is status post right hip arthroplasty, with hardware components in expected positions. The hip joint appears congruent. The visualized bony structures appear intact. Soft tissues: Overlying postoperative changes are noted. No suspicious soft tissue densities. IMPRESSION: Normal alignment after right total hip arthroplasty. Dictated by: Owen Velasquez M.D. on 06/09/2020 at 14:15 Approved by: Owen Velasquez M.D. on 06/09/2020 at 14:15
[2020-06-09] MEDS: CELECOXIB 200 MG CAPSULE 400 MG PO (09:41)
[2020-06-09] MEDS: ACETAMINOPHEN 325 MG TABLET 975 MG PO (09:41)
[2020-06-09] MEDS: LACTATED RINGERS 1,000 ML 42 ML IV ×2 (09:41→12:18)
--- NOTE | 2020-06-09 10:10 | PM.PREOP ---
Pre-operative Note COVID-19 COVID-19 status: Negative Result date/Date tested (Pos, Neg/Pending): 06/07/20 Interval Note History & Physical reviewed/Exam performed by Physician: Yes Changes to H&P: No H&P completed within 30 days and has changed as indicated here:: Plan for right anterior DUSTIN
[2020-06-09] MEDS: CEFAZOLIN 2 GM/100 ML FROZ.PIGGY IV ×2 (11:09→17:56)
[2020-06-09] MEDS: TRANEXAMIC ACID 1,000 MG VIAL 1000 MG IV ×2 (11:25→12:03)
--- NOTE | 2020-06-09 11:34 | SUR.OPER ---
Supine on padded [place] table with bilateral legs secured in padded positioning boots and suspended in positioning spars, operative leg in traction per surgeon. Head on foam donut. Arm on non-operative side secured on padded armboard <90 degrees abduction. Arm on operative side padded and resting across chest then secured with tape over sheet. Padded perineal post in place per surgeon.
[2020-06-09] MEDS: ROPIVACAINE 0.5% PF 5 MG/ML 20ML VIAL 10 ML INJ (11:48)
[2020-06-09] MEDS: KETOROLAC 30 MG/ML VIAL IV (11:51)
[2020-06-09] MEDS: MORPHINE 4 MG/ML INJ IV (11:56)
--- NOTE | 2020-06-09 13:22 | P.OP_ITS ---
Operative Date/Time/Diagnoses Date of procedure: 06/09/20 Time of procedure: 13:22 Pre-op diagnosis: right hip OA Post-op diagnosis: same Procedure & Clinicians Procedure: right anterior DUSTIN Same procedure as scheduled: Yes Indications: right hip OA resistant to further conservative care Surgeon: Jaret Sanz Statistical Financial Analyst: Maureen Claudio Anesthesia Type: General and Spinal Operative Notes Findings: right hip OA with ostophytes Closure Type: primary Specimen(s): none sent Prosthetic devices, grafts, tissues, transplants, or devices: Moore and Nephew 54 mm R3 cup 54 mm x 36 mm neutral offset polyethylene liner 2x 24mm screws Size 7 anthology stem standard offset 36-3 cobalt chrome head Estimated Blood Loss (mL): 800 Blood products transfused: none Procedure in detail: Patient was met in the preoperative holding area where the site and side of surgery were marked by . Informed consent had been reviewed in clinic was also reviewed the preoperative holding area and all last minute questions were answered. Patient was then brought back in the operating room where she received a spinal anesthetic and then was induced under general anesthesia prior to being transferred onto the Vidal table. Bilateral feet were well padded and placed in Vidal table boots. The right lower extremity then prepped and draped in normal sterile fashion. A surgical time-out was performed verifying the site and side of surgery as well as the name of the patient. A 7 cm long incision is made in the skin with a 10. Blade. This incision starting about 2 cm distal and lateral to the ASIS aiming towards the fibular head. Electrocautery was used to dissect down to the level of the tensor fascia. A new 10. Blade was then used to split the tensor fascia and Allis clamp was placed on the medial leaflet. The tensor muscle was then reflected laterally in a Cobra was placed over the superior aspect of the femoral neck. A Meyerding retractor was then placed over the lateral aspect of the rectus femoris and retracted medially. This gave us good exposure to the ascending branch to the circumflex vessels of the femur. These were then coagulated using electrocautery. A 2nd Cobra retractor was then placed under the inferior aspect of the femoral neck. A bent Hohmann was then placed over the anterior lip of the acetabulum giving us good exposure to the capsule. Inverted T-shaped capsulotomy was then performed and the superior and inferior leaflets were tagged with a FiberWire suture. The Cobra retractors then placed intracapsularly giving us good exposure to the femoral neck. A reciprocating saw was used to make a femoral neck cut based off our preoperative templated films. Corkscrew was then used to remove the head. A shot soft tissue Luis sleep protector was then introduced into the wound and a bent Hohmann was placed over the posterior lip of the acetabulum as well as the anterior lip of the acetabulum giving us good acetabular exposure. Suction and electrocautery was then used to remove the pulvinar. I began reaming with a 44 mm Reamer medialized in down to the level of the base of the fossa. I then brought in fluoroscopic views to finish reaming under fluoroscopic guidance. The in the LV was meshed were templated standing film. I then reamed up to a size 52 mm reamers starting good resistance and final reamed with the 53 mm Reamer for a 54 mm Press-Fit cup. The cup was then placed under fluoroscopic guidance and 2 screws were then placed full 25 mm in length both had excellent bite. A 54 mm x 36 mm neutral offset liner was then placed and malleted into place. It was confirmed the all tabs were flush with the acetabular cup rim. At this point we turned our attention to the femoral side a femoral elevator hook was placed underneath the posterior aspect of the femur the femur was externally rotated to 120? of external rotation extended to the floor and adducted. A bent Hohmann was placed over the superior aspect of the superior leaflet of the capsulotomy and the capsule was released off the inner shoulder of the greater trochanter using electrocautery. A large retractor was then placed over the tip of the greater trochanter to give us good exposure. A Barnes retractor was then placed over the medial calcar. A canal finer was then used to find side of the canal. I then used a chili pepper broach. At this point I cm past the size 1 broach and I was unable to do so without feeling like I was abutting cortex. Fluoroscopic fluoroscopy was brought in showed the stem was in a slight amount of varus but more that was aiming anterior posterior within the canal. This was corrected using a large curette to remove bone off posterior aspect of the femoral neck cut. I was then able to pass a 1. Broach and was able to upsize by 1s to a size 7 broach. I then calcar planed off the 7 broach. We used a standard offset neck and a 36+ 0 head. This was then reduced and stable to maximal external rotation as well as external rotation to 90? and extension to the floor. Fluoroscopy was brought in for verification of leg lengths as well as canal fit. Canal fit of the femoral stem was excellent. We did appear to be approximately 5-6 mm long on this side. We then dislocated the hip and is able to countersink the 7 broach by downsizing to a size 6 and subsequent coming up to a size 7 again. thurough interogation of the calcar did not show any calcar fracture. Then calcar planed flush to the broach and selected a 36-3 head. This was then reduced a final time and her leg lengths were much closer. The hip was then dislocated the trial was removed and a size 7 final broach was then selected and malleted into place. A 36-3 chrome cobalt head was then selected and malleted into place the hip was then reduced a final time. Fluoroscopy was brought in for final verification of fit of the femoral canal. Which was excellent. I then used local anesthetic to infiltrate the periarticular soft tissues as well as the superior and inferior leaflet of the capsulotomy. Betadine solution was then irrigated into the wound allowed to sit for several minutes prior to being lavage away with copious normal saline. The capsulotomy was then repaired using a running Ethibond suture in the FiberWire tag sutures were removed. The tensor fascia was then repaired using 1. Vicryl in a running locking fashion followed by a 1. Running fat suture layer followed by interrupted 2 Vicryl in the subcutaneous layer followed by 3-0 Stratafix in the subcuticular layer followed by Dermabond and Aquacel dressing. Complications: none Post-operative Condition: stable Disposition: PACU Plan for aftercare: 24 horus post-op abx, WBAT RLE, ASA 81mg BID for 6 weeks
[2020-06-09] MEDS: OXYCODONE IR 5 MG TABLET PO (14:03)
--- NOTE | 2020-06-09 14:18 | PC.NURSE ---
Day shift: Pt on unit from PACU at approx 1415. Pt is A&Ox3 but slow with some responses to questions. CMS intact and PPP. Oriented to room and call light. Tolerating SCD's. Denies any pain. Denies chest pain or nausea. Rt hip Aquacel is CDI. Pt tolerating ice water. Ice pack on rt hip. Agrees to ot get OOB w/o help from staff. Bed alarm is on. Per report from G[employer] LEAK INSPECTOR Pt is just a little bit off. Pt's daughter will be here soon for support in room.
[2020-06-09] MEDS: LACTATED RINGERS 1,000 ML 100 ML IV (14:34)
[2020-06-09 15:31] LABS: Add Manual Diff / Slide Review NO; Basophils Absolute Auto 100 /uL (0-100); Basophils Percent Auto 0.4 % (0-2); Eosinophils Absolute Auto 200 /uL (0-450); Eosinophils Percent Auto 1.3 % (2-4); Hematocrit 34.4 % (36-46); Hemoglobin 10.9 g/dL (12.0-16.0); Lymphocytes Absolute Auto 500 /uL (1100-4500); Lymphocytes Percent Auto 3.5 % (25-40); Mean Corpuscular HGB Conc 31.8 % (30-36); Mean Corpuscular Hemoglobin 30.3 PG (26-34); Mean Corpuscular Volume 95.1 fL (80-100); Monocytes Absolute Auto 400 /uL (0-900); Monocytes Percent Auto 2.6 % (3-14); Neutrophils Absolute Auto 12600 /uL (1500-7000); Neutrophils Percent Auto 92.2 % (50-75); Platelet Count 316 X10^3/uL (150-400); Red Blood Cell Count 3.62 X10^6/uL (4.0-5.2); Red Cell Distribution Width 13.7 % (11.6-14.8); White Blood Cell Count 13.6 X10^3/uL (4.5-11.0)
[2020-06-09] MEDS: OXYCODONE IR 10 MG TABLET PO ×2 (17:55→21:36)
[2020-06-09] MEDS: ASPIRIN EC 81 MG TABLET PO (20:44)
[2020-06-09] MEDS: DOCUSATE 100 MG CAPSULE PO (20:44)
[2020-06-09] MEDS: DULOXETINE 30 MG CAPSULE 60 MG PO (20:45)
[2020-06-09] MEDS: ACETAMINOPHEN 325 MG TABLET 650 MG PO (20:45)
[2020-06-09] MEDS: PRAMIPEXOLE 0.25 MG TABLET 0.125 MG PO (20:45)
[2020-06-09] MEDS: ALPRAZolam 0.25 MG TABLET PO (20:45)
[2020-06-09] MEDS: MELATONIN 3 MG TABLET 6 MG PO (20:52)
[2020-06-09] MEDS: HYDROMORPHONE 0.5 MG INJ IV (22:01)
[2020-06-10] VITALS (8 sets, daily range): BP systolic 101–146; BP diastolic 40–71; PULSE 76–90; RESP 14–18; TEMP 35.7–36.6; O2SAT 96–99
[2020-06-10] MEDS: HYDROMORPHONE 0.5 MG INJ IV ×3 (00:17→02:58)
--- NOTE | 2020-06-10 02:35 | PC.NURSE ---
Addendum entered by Larissa Tena R.N. 06/10/20 06:53: 0600 medications held in the interest of pt comfort, allowing pt to sleep. Addendum entered by Larissa Tena R.N. 06/10/20 05:09: slight extension of bruising near groin area, dressing still CDI Addendum entered by Larissa Tena R.N. 06/10/20 04:58: Pt flexing and tensing limbs in pain, blew RFA IV, new inserted into RH 24 g tolerated well. Able to give 1 mg dilaudid. L arm still swollen but reduced. Original Note: Pt in severe discomfort at start of shift. LAC IV site infiltrated & swollen, new 20G IV site RFA inserted, patent and asymptomatic. Warm compress placed on L arm to facilitate reduction of swelling. Pt unable to express self adequately, requiring frequent prompting and longer response times. Difficulty finding words, exacerbated by pain levels- this is normal per daughter report. FLACC scores 7-8. Pt has calcium carbonate not in bottle from home at bedside- requested to take, this RN requested the patient not take the medication until the need is discussed with the provider.
[2020-06-10] MEDS: CEFAZOLIN 2 GM/100 ML FROZ.PIGGY IV (02:46)
[2020-06-10] MEDS: LACTATED RINGERS 1,000 ML 100 ML IV (02:47)
[2020-06-10] MEDS: OXYCODONE IR 10 MG TABLET PO (02:52)
[2020-06-10] MEDS: HYDROMORPHONE 1 MG INJ IV (04:00)
[2020-06-10 05:58] LABS: Hematocrit 27.7 % (36-46)
--- NOTE | 2020-06-10 07:39 | PM.PNPO.1 ---
Subjective Subjective Date Patient Seen: 06/10/20 Time Patient Seen: 07:39 Interval history: POD #1 s/p right total hip arthroplasty with Dr. Sanz. Patient has had a significant pain overnight needing multiple IV Dilaudid doses. She was difficult to arouse this morning. When checked on 3 hours later she was alert and oriented x3. Her biggest complaint is actually radicular pain down the left leg with spasms. She has a history of lumbar spine surgery. No previous difficulty with steroids or gabapentin. Her hip is doing well and she is able to mobilize with physical therapy. Exam Vital Signs (past 8 hours): - 06/10/20 00:00 06/10/20 03:00 06/10/20 04:00 Temperature 97.7 F 96.2 F L 96.2 F L Pulse Rate 79 89 89 Respiratory Rate 14 14 14 Blood Pressure 118/40 L 114/71 114/71 Pulse Oximetry 96 96 96 Oxygen Delivery Method Room Air Oxygen Flow Rate 0 Narrative Exam Narrative: Patient is sitting in bedside chair no acute distress. She is alert and oriented x3. Calves are soft, compressible, nontender bilaterally. She is able to actively dorsiflex and plantar flex. Dorsalis pedis pulses symmetrical. Dressing on right anterior hip is CDI. Objective Labs Result Diagrams: 06/10/20 05:38 Labs: Laboratory Results - last 24 hr 06/09/20 06/10/20 15:22 05:38 WBC 13.6 H RBC 3.62 L Hgb 10.9 L 9.0 L Hct 34.4 L 27.7 L MCV 95.1 MCH 30.3 MCHC 31.8 RDW 13.7 Plt Count 316 Neut % (Auto) 92.2 H Lymph % (Auto) 3.5 L Houghton % (Auto) 2.6 L Eos % (Auto) 1.3 L Baso % (Auto) 0.4 Neut # (Auto) 44452 H Lymph # (Auto) 500 L [place] # (Auto) 400 Eos # (Auto) 200 Baso # (Auto) 100 PFSH Medical History Actinic keratosis Arthritis Back disorder Breast cancer Expressive aphasia Hearing loss HTN (hypertension) Hyponatremia Hypothyroid Insomnia Lyme disease Migraine Rheumatic fever without heart involvement TIA (transient ischemic attack) Surgical History History of carpal tunnel repair History of hysterectomy History of lumbar laminectomy Hx of bilateral cataract extraction Hx of repair of left rotator cuff Hx of tonsillectomy Status post bunionectomy Status post hysterectomy Status post knee surgery Status post partial mastectomy Family History Father Stroke Grandfather Stroke Social History household members: spouse Smoking Status: Never smoker alcohol intake: current Assessment & Plan Post-op Postoperative Procedures: Procedures Operation Date: 06/09/20 10:45 Actual Procedures Side Surgeon p Total Hip Arthroplasty/Anterior Approach Right Jaret Sanz MD Patient will continue to mobilize with physical therapy today. Will follow anterior hip precautions. Given patient's significant pain will change her to Dilaudid 2-4 mg every 3 hours, and Valium 2mg every 6 hours. We will also give her a steroid burst, 10 mg Decadron now, and 4 mg every 6 hours for 24 hours, and gabapentin 300 mg TID for radicular symptoms. She has had a history of chronic back pain and chronic opioid use. Given the amount of pain she is having today is likely she will discharge home tomorrow. Quality VTE Deep Vein Thrombosis/Pulmonary Embolism Present on Admission: No
[2020-06-10] MEDS: LIOTHYRONINE 25 MCG TABLET PO (08:06)
[2020-06-10] MEDS: diazePAM 2 MG TABLET PO ×3 (08:06→20:17)
[2020-06-10] MEDS: PRAMIPEXOLE 0.25 MG TABLET 0.125 MG PO ×2 (08:07→20:09)
[2020-06-10] MEDS: FUROSEMIDE 20 MG TABLET PO (08:07)
[2020-06-10] MEDS: ACETAMINOPHEN 325 MG TABLET 650 MG PO ×3 (08:07→20:03)
[2020-06-10] MEDS: POTASSIUM CHLORIDE 10 MEQ TAB PO (08:07)
[2020-06-10] MEDS: HYDROMORPHONE 2 MG TABLET PO ×6 (08:07→23:14)
[2020-06-10] MEDS: ASPIRIN EC 81 MG TABLET PO ×2 (08:07→20:06)
[2020-06-10] MEDS: DOCUSATE 100 MG CAPSULE PO ×2 (08:08→20:06)
[2020-06-10] MEDS: DULOXETINE 30 MG CAPSULE 60 MG PO ×2 (08:08→20:08)
[2020-06-10] MEDS: MAGNESIUM OXIDE 400 MG TABLET PO (08:08)
[2020-06-10] MEDS: LEVOTHYROXINE 25 MCG TABLET PO (08:08)
[2020-06-10] MEDS: GABAPENTIN 300 MG CAPSULE PO ×2 (10:58→22:14)
[2020-06-10] MEDS: dexAMETHasone 4 MG TABLET 10 MG PO (10:58)
--- NOTE | 2020-06-10 12:26 | PT.IIE ---
Current Diagnoses Unilateral primary osteoarthritis, right hip (06/09/20) Surgery Performed Operation Date: 06/09/20 10:45 Actual Procedures p Total Hip Arthroplasty/Anterior Approach(Right) - Jaret Sanz MD Surgical History (Last Reviewed 06/10/20 @ 10:32 by Janki Morales PA-C) History of carpal tunnel repair History of hysterectomy History of lumbar laminectomy Hx of bilateral cataract extraction Hx of repair of left rotator cuff Hx of tonsillectomy Status post bunionectomy Status post hysterectomy Status post knee surgery Status post partial mastectomy Medical History (Last Reviewed 06/10/20 @ 10:32 by Janki Morales PA-C) Actinic keratosis Arthritis Back disorder Breast cancer Expressive aphasia Hearing loss HTN (hypertension) Hyponatremia Hypothyroid Insomnia Lyme disease Migraine Rheumatic fever without heart involvement TIA (transient ischemic attack) Physical Therapy Inpatient Evaluation/Re-Eval M1 PT/OT-IP Prior Functional Status Start: 06/10/20 08:22 Freq: NEEDED Status: Active Protocol: Document 06/10/20 12:02 (Rec: 06/10/20 12:25 [email or web address]) Medical Review Prior Functional Status Medical History Reviewed Yes Diet/Fluid Consistency Regular Communication dtr stated pt has expressive aphasive but receptive to commands Mobility and Gait pt is mostly home bound and ambulatory at home with FWW. She can only walk up to a few blocks with ELECTROLYTIC DE SCALER from dtr and . Activities of Daily Living and IADL's IND for ADLs with FWW but assisted for IADLs. Pt does not drive Prior Functional Level (Other details) Per dtr, pt has had chronic pain issues over the past few years with her LBP and L sciatic pain. Pt often have severe pain at night time and usually has to provide massage to ease her pain. Social History Household Members spouse Living Arrangements House Number of Floors (Floors) One Floor Number of Stairs To Enter/Railing? No DULCE Home Environment High Toilet,Walk in Shower, Built-In Shower Seat Home Equipment Front Wheel Walker,Straight Cane,Manual Wheelchair,Hand Held Shower,Door Repairman,Grab Bars In Shower Employment Status Retired Additional Social History Comment Pt lives with in an independent living facility in [place]. Her dtr Joanne from [place] is here to assist and the other dtr from [place] will also stay with pt and assist if she gets d/c home. M2 PT-IP Current Condition Start: 06/10/20 08:22 Freq: NEEDED Status: Active Protocol: Document 06/10/20 12:02 (Rec: 06/10/20 12:25 [email or web address]) Physical Therapy Current Condition Current Condition Evaluation Date 06/10/20 Treatment Diagnosis R DUSTIN with ant approach, difficulty in walking Onset Date 06/09/20 Precautions Anterior Hip Precautions No Hip Extension,No Hip External Rotation Weight Bearing Status Weight Bearing Status Weight Bear as Tolerated M3 PT-IP Subjective Start: 06/10/20 08:22 Freq: NEEDED Status: Active Protocol: Document 06/10/20 12:02 (Rec: 06/10/20 12:25 [email or web address]) Subjective Physical Therapy Visit Type Type Initial Evaluation Visit Start Time 09:30 Visit Stop Time 10:06 Total Visit Minutes 36 Notes dtr Joanne attended session. Number of MOLD FILLER PLASTIC DOLLS Visits 0 Physical Therapy Visit Comments Patient Comments Pt was moaning in bed for L sciatic pain Therapy Pain Assessment Pain When Pain Assessed At Rest Pain Present Pain Present Pain Reported Location Left Hip Intensity 8 Scale Used King-Yee (Faces) Description Aching,With Movement Pain Behaviors Calling Out,Holding Area, Moaning Pain Management Techniques Apply Cold,Timing of Activity with Medications M4 PT-IP Mobility and Gait Start: 06/10/20 08:22 Freq: NEEDED Status: Active Protocol: Document 06/10/20 12:02 (Rec: 06/10/20 12:25 [email or web address]) PT-Bed Mobility Assessment Supine to Sit Supine to Sit Minimal Assistance,Bedrails Scooting Scooting to Edge of Bed Contact Guard Assistance PT-Transfer Assessment Sit to and From Stand Sit to and from Stand Contact Guard Assistance,Use of Upper Extremities Equipment Transfer Assistive Device Gait Belt,Front Wheeled Walker Orthotic/Prosthetic Devices or Brace: No Transfers Transfer Destination Bed,Chair Transfer Technique Stand Step Pivot Transfer Ability Level of Assist Minimal Assistance,Use of Upper Extremities Comments Mobility Comments Pt was laying on her R side in bed upon PT arrival. She was drowsy and very shaky. She was moaning for severe LBP and L sciatic pain. Dtr at bedside was providing massage and social hx info. Pt then lay on her back for sciatic nerve glide passively by PT and her symptoms subsided slightly. She agreed to mobilize with PT and she was able to sit up from supine position with dtr min A from the back. She sat at L EOB followed by standing up with CGA with FWW. Pt continued to moan for her L LBP but she was able to start ambulating with FWW. Pt amb with step to pattern and able to WB well on her R side. She walked up to windows first then turned around and walked 1 lap of her room. Pt did need min A on walker management during turns especially d/t her ongoing shakiness and 1-2 steps commands. She then returned to her chair with min A to keep her walker close and hand placements on chair armrests. Pt sat down and chair was reclined. She cont to moan for pain and appeared to be very shaky. Her seated BP initally was 160/94 but went bakc to 101/41 after 2 mins. Pt sat in chair comfortably. Call light placed [employer] reach. Rec LOG CARRIER OPERATOR Elda to place chair alarm for her. Gait Assessment Gait Gait Assistance Required: Minimum Assistance Distance (Feet) 18 Able to Maintain Weight Bearing Status Yes During Gait Assistive Devices Assistive Device Gait Belt,Front Wheeled Walker Orthotic/Prosthetic Devices or Brace: No Gait Deviations General Gait Pattern Antalgic,Decreased Stride Length,Decreased Feet Clearance,Flexed Trunk,Lateral Trunk Lean,Step-to Gait Factors Limiting Gait Function Factors Limiting Gait Function Decreased Activity Tolerance, Decreased Strength,Limited Range of Motion,Pain,Poor Balance,Poor Safety Awareness Comments Gait Comments see mobiltiy comments Stair Climbing Assessment Comments Stair Climbing Comments have not assessed yet. PT-Balance Assessment Sitting Balance and Reactions Static Sitting Balance Ability Good Dynamic Sitting Balance Ability Good Standing Balance and Reactions Static Standing Balance Ability Good Dynamic Standing Balance Ability Fair Device Used FWW M5 PT-IP Objective Assessments Start: 06/10/20 08:22 Freq: NEEDED Status: Active Protocol: Document 06/10/20 12:02 (Rec: 06/10/20 12:25 [email or web address]) Orientation Orientation/Cognition Level of Alertness Confusional State Orientation Name,Age,Situation Language Function Ability Expressive Aphasia,Hard of Hearing Safety Awareness Decreased Safety Awareness Memory Description Short Term Impaired Comments pt appears to be drowsy and only able to follow 1-2 steps command. Gross Range of Motion Upper Extremity ROM Assessment Within Functional Limits Lower Extremity ROM Assessment Bilaterally Impaired Strength Upper Extremity Strength Assessment Within Functional Limits Lower Extremity Strength Assessment Bilaterally Impaired M6 PT-IP Treatment Start: 06/10/20 08:22 Freq: NEEDED Status: Active Protocol: Document 06/10/20 12:02 HH (Rec: 06/10/20 12:25 HH [email or web address]) Physical Therapy Treatment Education Education Provided Precautions,Weight Bearing Status,Post-Op Packet,Safety M7 PT-IP Assessment and Plan Start: 06/10/20 08:22 Freq: NEEDED Status: Active Protocol: Document 06/10/20 12:02 HH (Rec: 06/10/20 12:25 [email or web address]) PT Summary Assessment and Plan Potential Rehabilitation Potential Good Status of Condition at Evaluation Evolving Summary Impairments Pain,ROM,Strength,Balance, Cognition,Bed Mobility, Transfers,Gait,Activity Tolerance Assessment Summary This is a mod complexity 85yo female s/p POD1 R DUSTIN with anterior approach. Per dtr, pt was mostly home bound and ambulatory at home with FWW. She can only walk up to a few blocks with ELECTROLYTIC DE SCALER from dtr and . She was IND for ADLs but needed A from husbands for IADLs. Pt has had chronic pain issues over the past few years with her LBP and L sciatic pain. Pt often have severe pain at night time and usually has to provide massage to ease her pain. Upon assessment, pt was confused and very shaky who was moaning the entire session for her LBP and L sciatic pain. Dtr stated her confused cog. state was not this significant prior to surgery but this is possibly d/t medication. pt did not c/o discomfort on R hip and was able to amb around the room and transferred to chair with CGA / min A. In my professional opinion, I expect pt to be able to go home once her LBP and sciatic pain are controlled, along with and other dtr asssitance and outpatient PT. Will cont to monitor her progress. Goals Bed Mobility Goal Standby Assistance,Contact Guard Assistance Transfer Goal Standby Assistance,Contact Guard Assistance,Front Wheeled Walker Gait Goal Standby Assistance,Contact Guard Assistance,Front Wheel Walker Gait Distance 75 Days to Meet Goals 5 Frequency of Treatment Frequency Of Treatment Twice a Day Treatment Plan Physical Therapy Treatment Plan Bed Mobility Training,Transfer Training,Gait Training, Therapeutic Exercise,Balance Retraining,Post Op Education, Discharge Planning,Hot or Cold Pack,Neuromuscular Re-ed Other Recommendations and Next Treatment check vitals Focus mobiltiy as mele review precautions Recommendations To Nursing Amount of Assist Needed 1 Person Assist Discharge Recommendations PT Discharge Recommendations Home with Assistance, Outpatient PT Transportation Needs at Discharge Private Vehicle
--- NOTE | 2020-06-10 14:02 | PT.IPTN ---
Current Diagnoses Unilateral primary osteoarthritis, right hip (06/09/20) Surgery Performed Operation Date: 06/09/20 10:45 Actual Procedures p Total Hip Arthroplasty/Anterior Approach(Right) - Jaret Sanz MD Physical Therapy Treatment Note M2 PT-IP Current Condition Start: 06/10/20 08:22 Freq: NEEDED Status: Active Protocol: Document 06/10/20 12:02 HH (Rec: 06/10/20 12:25 [email or web address]) Physical Therapy Current Condition Current Condition Evaluation Date 06/10/20 Treatment Diagnosis R DUSTIN with ant approach, difficulty in walking Onset Date 06/09/20 Precautions Anterior Hip Precautions No Hip Extension,No Hip External Rotation Weight Bearing Status Weight Bearing Status Weight Bear as Tolerated M3 PT-IP Subjective Start: 06/10/20 08:22 Freq: NEEDED Status: Active Protocol: Document 06/10/20 13:24 CLB (Rec: 06/10/20 14:39 CLB [id number]) Subjective Physical Therapy Visit Type Type Treatment Note Visit Start Time 13:24 Visit Stop Time 14:02 Total Visit Minutes 38 Notes Daughter Joanne states that pt is thinking clearer this afternoon. Pt daughter present during tx and stated pt has some trouble at baseline with word finding but seems worse now. Number of OIL AND GAS WELL TREATMENT OPERATOR Visits 1 Physical Therapy Visit Comments Patient Comments Pt willing to do therapy. Therapy Pain Assessment Pain When Pain Assessed During Mobility Pain Present Pain Present Pain Reported Location Right Hip Intensity 6 Scale Used Numeric (0 - 10) Pain Behaviors Facial Grimacing Pain Management Techniques Modification of Treatment,Re- positioning,Timing of Activity with Medications M4 PT-IP Mobility and Gait Start: 06/10/20 08:22 Freq: NEEDED Status: Active Protocol: Document 06/10/20 13:24 CLB (Rec: 06/10/20 14:39 CLB [id number]) PT-Bed Mobility Assessment Supine to Sit Supine to Sit Minimal Assistance,Bedrails Scooting Scooting to Edge of Bed Contact Guard Assistance PT-Transfer Assessment Sit to and From Stand Sit to and from Stand Contact Guard Assistance,Use of Upper Extremities Equipment Transfer Assistive Device Gait Belt,Front Wheeled Walker Orthotic/Prosthetic Devices or Brace: No Transfers Transfer Destination Chair Transfer Technique Stand Step Pivot Transfer Ability Level of Assist Minimal Assistance,Use of Upper Extremities Comments Mobility Comments Pt in bed upon arrival, pt very shaky at first then with verbal cues to take deep breaths and relax pt was able to stop shaking and focus on exercises. Pt viewed paper copy of ther ex while performing HS and AP's. Pt has difficulty following verbal directions but was able to ready the instructions and perform exercises. Pt then required Min A for supine to sit, CGA for scooting and sit- stand. Pt ambulated in room ~ 20ft w/FWW/CGA and cues to push walker forward rather than lift walker. Pt required max verbal and visual cues to prevent her from hip ER during turns. Pt required cues to step back with left foot before sitting in chair and cues for reaching back to arms of chair for safe descent. Pt sat in chair for a seated rest break then stood CGA from chair and ambulated another ~ 40ft w/FWW/CGA with no follow through with verbal cues so cues were given again for walker management and foot placement during turns. Pt sat in chair at end of tx. Pt left in reclined chair with chair alarm on, daughter and RN present to give meds. Gait Assessment Gait Gait Assistance Required: Contact Guard Assist,1 Person Assist Distance (Feet) 60 Able to Maintain Weight Bearing Status Yes During Gait Assistive Devices Assistive Device Gait Belt,Front Wheeled Walker Orthotic/Prosthetic Devices or Brace: No Gait Deviations General Gait Pattern Antalgic,Decreased Stride Length,Decreased Feet Clearance,Flexed Trunk,Lateral Trunk Lean,Step-to Gait Factors Limiting Gait Function Factors Limiting Gait Function Decreased Activity Tolerance, Decreased Strength,Difficulty Following Directions,Limited Range of Motion,Pain,Poor Balance,Poor Safety Awareness Comments Gait Comments Pt requires CGA and max verbal cues for walker management and safety during turns to prevent pt from ER. Pt uses small step thru gait pattern. Stair Climbing Assessment Comments Stair Climbing Comments have not assessed yet. PT-Balance Assessment Sitting Balance and Reactions Static Sitting Balance Ability Good Dynamic Sitting Balance Ability Good Standing Balance and Reactions Static Standing Balance Ability Good Dynamic Standing Balance Ability Fair Device Used FWW M5 PT-IP Objective Assessments Start: 06/10/20 08:22 Freq: NEEDED Status: Active Protocol: Document 06/10/20 12:02 (Rec: 06/10/20 12:25 [email or web address]) Orientation Orientation/Cognition Level of Alertness Confusional State Orientation Name,Age,Situation Language Function Ability Expressive Aphasia,Hard of Hearing Safety Awareness Decreased Safety Awareness Memory Description Short Term Impaired Comments pt appears to be drowsy and only able to follow 1-2 steps command. Gross Range of Motion Upper Extremity ROM Assessment Within Functional Limits Lower Extremity ROM Assessment Bilaterally Impaired Strength Upper Extremity Strength Assessment Within Functional Limits Lower Extremity Strength Assessment Bilaterally Impaired M6 PT-IP Treatment Start: 06/10/20 08:22 Freq: NEEDED Status: Active Protocol: Document 06/10/20 13:24 CLB (Rec: 06/10/20 14:39 CLB [id number]) Physical Therapy Treatment Exercises Exercises Ankle Pumps,Heel Slides Education Education Provided Precautions,Weight Bearing Status,Post-Op Packet,Safety M7 PT-IP Assessment and Plan Start: 06/10/20 08:22 Freq: NEEDED Status: Active Protocol: Document 06/10/20 13:24 CLB (Rec: 06/10/20 14:39 CLB [id number]) PT Summary Assessment and Plan Potential Rehabilitation Potential Good Status of Condition at Evaluation Evolving Summary Impairments Pain,ROM,Strength,Balance, Cognition,Bed Mobility, Transfers,Gait,Activity Tolerance Assessment Summary Pt requires Min A for bed mobility and CGA for sit-stand and gait. Pt is [place] and hears best from left ear per daughter. Pt requires max verbal cues to prevent hip extension and hip ER during gait. Pt has difficulty following directions and requires increased time to answer questions. Pt's daughter Joanne states that her dad and sister will be able to assist pt at home. Pt lives on [address] and will need to ride in car on [facility] upon d /c. Goals Bed Mobility Goal Standby Assistance,Contact Guard Assistance Transfer Goal Standby Assistance,Contact Guard Assistance,Front Wheeled Walker Gait Goal Standby Assistance,Contact Guard Assistance,Front Wheel Walker Gait Distance 75 Days to Meet Goals 5 Frequency of Treatment Frequency Of Treatment Twice a Day Treatment Plan Physical Therapy Treatment Plan Bed Mobility Training,Transfer Training,Gait Training, Therapeutic Exercise,Balance Retraining,Post Op Education, Discharge Planning,Hot or Cold Pack,Neuromuscular Re-ed Other Recommendations and Next Treatment CG training at 10:00 Focus review precautions with , ther ex, bed mobility, sit-stand and gait training Recommendations To Nursing Amount of Assist Needed 1 Person Assist Discharge Recommendations PT Discharge Recommendations Home with Assistance, Outpatient PT Transportation Needs at Discharge Private Vehicle
--- NOTE | 2020-06-10 14:17 | PC.NURSE ---
Patient was very drowsy and had trouble finding words for 4hrs or so today. She is slowly coming out of it. Patient at 1330 is more bright and alert. Medication regimen changed today. Dilaudid PO 2mg, Valium for spasms, and Gabbapentin added by Inés Morales today. Patient seems to have trouble metabolizing large amounts of narcotic medication. Per Larissa REYEShead of [employer] mgr hand off, patient was having 1mg IV Dilaudid every hour for pain and spasm. Patient to go home w/ daughter on [address] to [place] and needs priority boarding tomorrow 06/11/20.
--- NOTE | 2020-06-10 15:19 | CM.DANOTE ---
DCP/Assessment: Reviewed chart. Patient is a 85yr old female [facility] right DUSTIN performed on 06-09-[address] Sanz. PCP listed is Bobby [facility]uluaga. [facility] Met with patient and daughter/Joanne at bedside explained CM/SW role. It is anticipated that patient will be medically cleared for d/c tomorrow 06-11-20. Daughter reports that patient's spouse/Don will be available for patient at home. In addition, additional family can assist and provide help as needed. Family requesting patient have HH upon d/c from [facility] They report that [facility] has already been notified. BOWLING BALL MOLD ASSEMBLER placed call to [facility] and they confirm that they have been ordered. [facility] requesting d/c summary and orders on day of d/c faxed to [phone]. Patient will need priority boarding pass for return sailing to [place], sailing time is 3:05pm on weekday. RN updated. In addition, BOWLING BALL MOLD ASSEMBLER spoke with therapy about the possibility of spouse coming in for caregiver training tomorrow prior to d/c? Therapy reports that they can meet at 10:00AM. Patient, daughter, and spouse aware and agreeable. supervisor special education/Stacie Thacker notified re: additional visitor during caregiver training. Spouse aware that he can only be at [facility] for training and must leave when it is completed. He is aware and agreeable. P: Anticipate home on 06-11-20. Patient will return home with supportive family to [place]. [facility] to be finalized prior to d/c. DESIRAE Hammond Discharge Planning/Care Management CM Discharge Assessment Start: 06/10/20 15:14 Freq: Status: Active Protocol: Document 06/10/20 15:15 KJS (Rec: 06/10/20 15:19 KJS [id number]) Discharge Planning Assessment Assigned Guinea Pig Breeder DESIRAE Hammond Contact Information Yariel Ibrahim (spouse) # [phone] Advance Directives? Yes History Provided By Patient,Family Member, Significant Other,Medical Record Prior Living Arrangements House Household Members spouse Type of transporation used prior to Relies on Others admit Independent with ADL's No Is patient alert and oriented? Yes: Patient is very [place] Needs Assistance With Bathing,Grooming,Meal Prep, Toileting,Managing Medications ,Home Chores / Shopping Caregiver for Another No Patient/Family Preference Home with Home Health Barriers to Discharge No Discharge Plan Home Transportation Arrangement Spouse to provide transport. Referrals Initiated Home Health Additional Comment Notified [facility] today of referral. Patient will need PT /OT/RN. [facility] had already received referral. [facility] requesting call on day of discharge and d/c summary and order be faxed to [phone] . SNF/HH Preference [facility] White[facility] Updated in Patient Room with Yes name and ext. # of Guinea Pig Breeder Review Status In Process Next Review Type Continued Stay Review Pre-Anesthesia Assessment Start: 06/02/20 12:43 Freq: Status: Complete Protocol: Document 06/03/20 11:47 CAB (Rec: 06/02/20 13:14 CAB [id number]) Pre-Anesthesia Assessment PAC Comment Pt has memory issues and will require assistance from or daughter into pre- op area Patient Information Reviewed Via Phone Assessment Assessment Completed With Patient,Spouse H&P Completed Within 30 Days Yes Diagnostic Results BMP/CMP,CBC,EKG Comment Labs/EKG @ [facility], COVID screen @ [facility] 06/07/20 Primary Care Provider Sofia Downing Medical Clearance Received Yes Seen Specialist in Last 12 Months Yes Specialist Seen Orthopedist Comment PCP clearance scanned Primary Language Indonesian Steel Finisher Required No Height 162.56 cm Weight 69.853 kg Body Mass Index (BMI) 26.4 Hearing Ability Hard of Hearing,Use of Hearing Aid Visual Assist Magnifying Glass Dentition Type Teeth, Natural Present Barriers to Learning Memory Comment MEMORY Hx Anesthesia Reactions No Hx Family Anesthesia Reaction No Hx Malignant Hyperthermia No Hx Blood Transfusions Yes: with a miscarriage Hx Blood Transfusion Reaction No Anesthesia Review Requested Yes: Reviewed prior to scheduling Additional comment Anesthesia review scanned alcohol intake current alcohol intake frequency 0-2 drinks per day Smoking Status Never smoker Substance Use Type does not use Pain Present Pain Reported Musculoskeletal Symptoms Abnormal Gait,Difficulty Walking,Joint Pain History of Falling (Recent or History of Yes ) Patient is completely paralyzed or No completely immobile Prosthesis or Orthotic Device Front Wheel Walker Is patient on oxygen? No Does patient have PAK/SOB No Hx Sleep Apnea No CPAP/BIPAP use not prescribed Currently Taking a Beta Amelie No Hx Chest Pain No Hx SOB No Hx Syncope or Dizziness No Anti-Coagulant Therapy No Has a Hi Ranger Operator No Cardiac Testing No Hx Pacemaker/ICD No Pacemaker Rep Required? No Cardiac Clearance Received Not Applicable Diet Type At Home Regular dysphagia No Gastrointestinal Symptoms Constipation Bladder Pattern Frequency,Incontinent,Urgency Hx Urinary Self Catheterization No Diabetes No Patient No Lactating No Presence of External or Internal Medical Yes Devices Have you had any close contact with No someone diagnosed with COVID-19? Marital Status Lives With spouse Prior Living Arrangements House Number of Floors (Floors) One Floor Support System Spouse Does the Patient Have Assistance After Yes Surgery Patient Discharge Plan Description Return Home Comment Lives on [place] Additional comment Pt not advised on length of stay per surgeon Feels Safe in Current Environment Yes Been Physically Hurt or Threatened By a No Person in Current Environment Do you have thoughts of harming yourself None or others? Are you currently considering suicide? No Do you have a plan to hurt yourself or No Plan others? Do You Have Any Spiritual Beliefs That No May Affect Your HC Choices? Do You Have Any Cultural Practices That No May Affect Your HC Choices? Who Can We Speak to About Patient's Care Family, friends Identifying Code for Release of Patient Declines to issue Information Health Care Proxy/Next of Kin Yariel () Health Care Proxy Emergency Contact Name Joanne (daughter) Patrizia ( daughter) Emergency Contact Phone Number Joanne: [phone] Patrizia: Advance Directives? Yes Power of Waste Baler Yes Power of Waste Baler Name Yariel Ibrahim- Power of Waste Baler PAC Instructions Durable medical equipment, Medications to take/avoid, Nasal antibiotic,No ETOH/ petroleum product on skin DOS, NPO,Post-op transportation, Sturdy shoes/comfortable clothes,Do not bring valuables and remove jewelry
[2020-06-10] MEDS: dexAMETHasone 4 MG TABLET PO ×2 (16:59→22:14)
[2020-06-10] MEDS: MELATONIN 3 MG TABLET 6 MG PO (20:06)
[2020-06-10] MEDS: ALPRAZolam 0.25 MG TABLET PO (20:06)
[2020-06-10] MEDS: SODIUM CHLORIDE 0.9% FLUSH 10 ML IV (20:09)
[2020-06-11] MEDS: diazePAM 2 MG TABLET PO ×2 (02:06→09:09)
[2020-06-11] MEDS: dexAMETHasone 4 MG TABLET PO ×2 (03:47→12:11)
[2020-06-11] MEDS: HYDROMORPHONE 2 MG TABLET PO ×3 (03:47→13:26)
[2020-06-11 03:58] VITALS: BP 125/68; PULSE 72; RESP 18; TEMP 36.1; O2SAT 97
[2020-06-11] MEDS: LEVOTHYROXINE 25 MCG TABLET PO (06:32)
[2020-06-11] MEDS: LIOTHYRONINE 25 MCG TABLET PO (06:32)
[2020-06-11 07:00] VITALS: BP 142/81; PULSE 99; RESP 18; TEMP 36.7; O2SAT 97
[2020-06-11] MEDS: polyethylene glycoL 3350 17 GM POWD.PACK PO (09:08)
[2020-06-11] MEDS: DOCUSATE 100 MG CAPSULE PO (09:08)
[2020-06-11] MEDS: POTASSIUM CHLORIDE 10 MEQ TAB PO (09:08)
[2020-06-11] MEDS: ASPIRIN EC 81 MG TABLET PO (09:08)
[2020-06-11] MEDS: ACETAMINOPHEN 325 MG TABLET 650 MG PO (09:08)
[2020-06-11] MEDS: MAGNESIUM OXIDE 400 MG TABLET PO (09:08)
[2020-06-11] MEDS: FUROSEMIDE 20 MG TABLET PO (09:09)
[2020-06-11] MEDS: DULOXETINE 30 MG CAPSULE 60 MG PO (09:09)
[2020-06-11] MEDS: SODIUM CHLORIDE 0.9% FLUSH 10 ML IV (09:10)
[2020-06-11] MEDS: PRAMIPEXOLE 0.25 MG TABLET 0.125 MG PO (09:10)
--- NOTE | 2020-06-11 10:11 | PM.DS.1 ---
History of Present Illness History of Present Illness Date Patient Seen: 06/11/20 Chief complaint: R Total Hip Arthroplasty/Anterior Approach *OPB* Narrative: Please see HPI previously recorded in the chart. Discharge Providers Provider Date of admission: 06/10/20 14:27 Discharge Date: 06/11/20 Primary care physician: MATTI Samano Consults: 06/09/20 14:18 Consult to Discharge Planning Routine Comment: Consult to Physical Therapy Evaluate & Treat Comment: Physician Instructions: post op DUSTIN protocol Consult to Respiratory Therapy Evaluate & Treat Comment: Physician Instructions: Evaluate and treat Discharge provider: Maureen Claudio PA-C Summary Hospital Course Discharge Diagnosis: s/p right anterior total hip arthroplasty Hospital Course: 85 year old female with longstanding history of right hip osteoarthritis. Patient was met in the preoperative holding area where the site and side of surgery were marked by . Informed consent had been reviewed in clinic was also reviewed the preoperative holding area and all last minute questions were answered. Patient was then brought back in the operating room where she received a spinal anesthetic and then was induced under general anesthesia. She underwent a right anterior total hip arthroplasty with Dr. Sanz. She tolerated the procedure well with no intraoperative or postoperative complications. She was transferred to the acute care floor where she has been progressing well with physical therapy. Her main complaint has been a left sided radiculopathy which is long standing and elevated due to supine periods. She was given 24 hours of steroids as well as adding gabapentin to her regimen. Pain somewhat improved. 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 Daughter/family concerned about discharging to [facility] with Dilaudid. Will discharge to home with script of Oxycodone. Patient has mobilized well with PT, and has been tolerating a diet and voiding appropriately. She is stable for discharge to home today. Status at Discharge Cognitive/behavioral status at discharge: oriented Functional status at discharge: uses cane/walker Overall status at discharge: patient is progressing back to baseline Exam Vital Signs (past 8 hours): - 06/11/20 03:58 06/11/20 07:00 Temperature 97.0 F L 98.0 F Pulse Rate 72 99 H Respiratory Rate 18 18 Blood Pressure 125/68 142/81 H Pulse Oximetry 97 97 Oxygen Delivery Method Room Air Oxygen Flow Rate 0 Narrative Exam Narrative: 85 year old female in chair and moving well about the room. Alert and oriented in no acute distress. Aquacel dressing is CDI. Patient able to perform straight leg raise. Calves are soft, nontender bilaterally. Objective Labs Result Diagrams: 06/10/20 05:38 PFSH Medical History Actinic keratosis Arthritis Back disorder Breast cancer Expressive aphasia Hearing loss HTN (hypertension) Hyponatremia Hypothyroid Insomnia Lyme disease Migraine Rheumatic fever without heart involvement TIA (transient ischemic attack) Surgical History History of carpal tunnel repair History of hysterectomy History of lumbar laminectomy Hx of bilateral cataract extraction Hx of repair of left rotator cuff Hx of tonsillectomy Status post bunionectomy Status post hysterectomy Status post knee surgery Status post partial mastectomy Family History Father Stroke Grandfather Stroke Social History household members: spouse Smoking Status: Never smoker alcohol intake: current Discharge Plan Discharge Plan Patient Disposition: Home Discharge orders & Medications Prescriptions: New aspirin 81 mg Tablet,Delayed Release (Dr/Ec) 81 mg PO BID Qty: 40 RF: 0 docusate sodium [DOK] 100 mg Capsule 100 mg PO BID Qty: 40 RF: 0 gabapentin [Neurontin] 300 mg Capsule 300 mg PO TID PRN (Reason: radiculopathy) Qty: 90 RF: 0 oxycodone 5 mg capsule 5 mg PO Q6H PRN (Reason: pain) Qty: 40 RF: 0 Continued magnesium oxide 400 MG capsule 400 mg PO Q DAY Qty: 0 RF: 0 liothyronine 25 mcg Tablet 25 mcg PO DAILY RF: 0 alprazolam 0.25 mg Tablet 0.25 mg PO BEDTIME RF: 0 pramipexole 0.25 mg Tablet 0.125 mg PO BID RF: 0 furosemide 20 mg Tablet 20 mg PO DAILY RF: 0 buprenorphine-naloxone 2-0.5 mg Tablet, Sublingual 1 tab SUBLINGUAL DAILY RF: 0 duloxetine 60 mg Capsule,Delayed Release(Dr/Ec) 60 mg PO BID RF: 0 melatonin 5 mg Tablet 5 mg PO BEDTIME RF: 0 levothyroxine 13 mcg Capsule 25 mcg PO DAILY RF: 0 ibuprofen 200 mg Tablet 200 mg PO TID PRN (Reason: Pain) RF: 0 acetaminophen 500 mg Tablet 500 mg PO TID RF: 0 potassium chloride 10 mEq tablet extended release 10 meq PO DAILY Qty: 30 RF: 0 Follow up/Referrals: Sofia Downing ARNP [Primary Care Provider] - Jaret Sanz MD [Physician] - Diet/Activity/Treatments Diet: Diet as Tolerated Activity: Frequent short walks. Use a front wheel walker for fall prevention. Cold/Heat Therapy: Ice packs as needed. Allow skin to return to room temperature between icing. Skin/Wound/Dressing Care Report to your healthcare provider any signs of infection, such as:: chills, fever, night sweats, unusual drainage and unusual redness Dressing: Aquacel dressing is to remain in place until your 2 week postoperative visit. OK to shower with this on. Call the office if dressing becomes saturated or soiled. Visit Report/Discharge Packet Instructions: DI for Hip Replacement, DI for Prescription Opioid Use Discharge Data Primary Care Provider: Sofia Downing Attending Provider: Jaret Sanz Quality VTE Deep Vein Thrombosis/Pulmonary Embolism Present on Admission: No
--- NOTE | 2020-06-11 10:32 | PT.IPTN ---
Current Diagnoses Unilateral primary osteoarthritis, right hip (06/10/20) Surgery Performed Operation Date: 06/09/20 10:45 Actual Procedures p Total Hip Arthroplasty/Anterior Approach(Right) - Jaret Sanz MD Physical Therapy Treatment Note M2 PT-IP Current Condition Start: 06/10/20 08:22 Freq: NEEDED Status: Active Protocol: Document 06/10/20 12:02 HH (Rec: 06/10/20 12:25 [id number]) Physical Therapy Current Condition Current Condition Evaluation Date 06/10/20 Treatment Diagnosis R DUSTIN with ant approach, difficulty in walking Onset Date 06/09/20 Precautions Anterior Hip Precautions No Hip Extension,No Hip External Rotation Weight Bearing Status Weight Bearing Status Weight Bear as Tolerated M3 PT-IP Subjective Start: 06/10/20 08:22 Freq: NEEDED Status: Active Protocol: Document 06/11/20 09:59 SP (Rec: 06/11/20 12:09 SP [id number]) Subjective Physical Therapy Visit Type Type Treatment Note Visit Start Time 09:59 Visit Stop Time 10:32 Total Visit Minutes 33 Notes DaughterJoanne attended tx and cued as needed, complete caregiver training and assist pt as needed throughout tx. Number of MERCHANDISE BUYER Visits 1 Physical Therapy Visit Comments Patient Comments Pt willing to work with therapy for 2nd tx including caregiver training with . Patient Goals to return home with to assist her, and another daughter as needed nearby. Therapy Pain Assessment Pain Present Pain Present Pain Reported Location Left sciatic Intensity 5 Description Shooting,Spasm,With Movement Pain Behaviors Facial Grimacing,Guarding, Holding Area,Moaning, Restlessness,Wincing Pain Management Techniques Distraction,Re-positioning Right Hip Intensity 3 Description Dull,With Movement Pain Management Techniques Re-positioning,Timing of Activity with Medications M4 PT-IP Mobility and Gait Start: 06/10/20 08:22 Freq: NEEDED Status: Active Protocol: Document 06/11/20 09:59 SP (Rec: 06/11/20 12:09 SP [id number]) PT-Bed Mobility Assessment Rolling Type of Rolling Bilateral Level of Assist Standby Assistance Supine to Sit Supine to Sit Contact Guard Assistance, Bedrails Sit to Supine Sit to Supine Standby Assistance,Bedrails Scooting Scooting to Edge of Bed Standby Assistance Scooting Up and Down in Bed Standby Assistance PT-Transfer Assessment Sit to and From Stand Sit to and from Stand Contact Guard Assistance,Use of Upper Extremities Equipment Transfer Assistive Device Gait Belt,Front Wheeled Walker Orthotic/Prosthetic Devices or Brace: No Transfers Transfer Destination Bed Transfer Technique pt ambulated using FWW Transfer Ability Level of Assist Contact Guard Assistance,1 Person Assistance,Use of Upper Extremities Comments Mobility Comments Pt requires time to complete thought process comments, cuing required for safety hand placement, CGA required during most of mobility: sit> supine on L side of bed using BUE support RLE then self scoot center self for safety, supine> sit using heavy BUE on bed rails (has at home) off R side, sit<> stand, improved in distance during gait in hallway around nursing station using FWW approx 140 ft with occasional cuing for keeping withing no hip ext precautions by . Pt returned to bed of R side SBA. MERCHANDISE BUYER reviewed post op exercises: glut and quad sets, heel slide , ankle pumps RLE and sciatic nerve flossing LLE due to flare up at times during bed mobility with assist and cued can incorporated slow ankle pump, then diaphramatic breathing to assist decrease breath rate, shaky BUE from sciatic nerve pain with tremendous success of low pain level. Pt rested in bed with LLE supported on pillows for comfort, bed alarmed for safety with call light and all needs in reach. Pt is ok to return home with and daughter as needed to assist her when medically cleared. Pt stated is set up for outpt therapy already. Gait Assessment Gait Gait Assistance Required: Standby Assistance,Contact Guard Assist,1 Person Assist Distance (Feet) 140 Able to Maintain Weight Bearing Status Yes During Gait Assistive Devices Assistive Device Gait Belt,Front Wheeled Walker Orthotic/Prosthetic Devices or Brace: No Gait Deviations General Gait Pattern Antalgic,Flexed Trunk Factors Limiting Gait Function Factors Limiting Gait Function Decreased Activity Tolerance, Decreased Strength,Limited Range of Motion,Pain,Poor Safety Awareness Comments Gait Comments See mobility comments. Stair Climbing Assessment Comments Stair Climbing Comments No need to assess, no stairs at home. PT-Balance Assessment Sitting Balance and Reactions Static Sitting Balance Ability Good Dynamic Sitting Balance Ability Good Standing Balance and Reactions Static Standing Balance Ability Good Dynamic Standing Balance Ability Fair Device Used FWW M5 PT-IP Objective Assessments Start: 06/10/20 08:22 Freq: NEEDED Status: Active Protocol: Document 06/10/20 12:02 (Rec: 06/10/20 12:25 [id number]) Orientation Orientation/Cognition Level of Alertness Confusional State Orientation Name,Age,Situation Language Function Ability Expressive Aphasia,Hard of Hearing Safety Awareness Decreased Safety Awareness Memory Description Short Term Impaired Comments pt appears to be drowsy and only able to follow 1-2 steps command. Gross Range of Motion Upper Extremity ROM Assessment Within Functional Limits Lower Extremity ROM Assessment Bilaterally Impaired Strength Upper Extremity Strength Assessment Within Functional Limits Lower Extremity Strength Assessment Bilaterally Impaired M6 PT-IP Treatment Start: 06/10/20 08:22 Freq: NEEDED Status: Active Protocol: Document 06/11/20 09:59 SP (Rec: 06/11/20 12:09 SP [id number]) Physical Therapy Treatment Exercises Exercises Ankle Pumps,Gluteal Sets,Quad Sets,Heel Slides Knee ROM Measurement 90 deg Education Education Provided Precautions,Weight Bearing Status,Post-Op Packet,Safety Other Treatments Other Treatment Performed Reviewed sciatic nerve flossing LLE given by PT last tx to assist pain and diaphramatic breathing to decrease pain and UE shakiness that happens with increaed pain LLE. M7 PT-IP Assessment and Plan Start: 06/10/20 08:22 Freq: NEEDED Status: Active Protocol: Document 06/11/20 09:59 SP (Rec: 06/11/20 12:09 SP [id number]) PT Summary Assessment and Plan Potential Rehabilitation Potential Good Status of Condition at Evaluation Evolving Summary Impairments Pain,ROM,Strength,Balance, Cognition,Bed Mobility, Transfers,Gait,Activity Tolerance Progress Towards Goals Progressing Toward Goals,Slow Progress due to Pain Assessment Summary Pt is progressing well with gait and mobilty using FWW. completed caregiver training and assisted as needed throughout tx. She has trouble with word-finding and history of expressive aphasia but given extra time able to make needs known. Pt is ok to return home with and daughter as needed to assist her when medically cleared. Pt stated is set up for outpt therapy already. Goals Bed Mobility Goal Standby Assistance,Contact Guard Assistance Transfer Goal Standby Assistance,Contact Guard Assistance,Front Wheeled Walker Gait Goal Standby Assistance,Contact Guard Assistance,Front Wheel Walker Gait Distance 75 Days to Meet Goals 5 Frequency of Treatment Frequency Of Treatment Twice a Day Treatment Plan Physical Therapy Treatment Plan Bed Mobility Training,Transfer Training,Gait Training, Therapeutic Exercise,Balance Retraining,Post Op Education, Discharge Planning,Hot or Cold Pack,Neuromuscular Re-ed Other Recommendations and Next Treatment further distance gait using Focus FWW, ther ex (reiterate not over doing it), bed mobility Recommendations To Nursing Amount of Assist Needed 1 Person Assist Discharge Recommendations PT Discharge Recommendations Home with Assistance, Outpatient PT Transportation Needs at Discharge Private Vehicle
--- NOTE | 2020-06-11 10:33 | PT.IPTN ---
Current Diagnoses Unilateral primary osteoarthritis, right hip (06/10/20) Surgery Performed Operation Date: 06/09/20 10:45 Actual Procedures p Total Hip Arthroplasty/Anterior Approach(Right) - Jaret Sanz MD Physical Therapy Treatment Note M2 PT-IP Current Condition Start: 06/10/20 08:22 Freq: NEEDED Status: Active Protocol: Document 06/10/20 12:02 HH (Rec: 06/10/20 12:25 [id number]) Physical Therapy Current Condition Current Condition Evaluation Date 06/10/20 Treatment Diagnosis R DUSTIN with ant approach, difficulty in walking Onset Date 06/09/20 Precautions Anterior Hip Precautions No Hip Extension,No Hip External Rotation Weight Bearing Status Weight Bearing Status Weight Bear as Tolerated M3 PT-IP Subjective Start: 06/10/20 08:22 Freq: NEEDED Status: Active Protocol: Document 06/11/20 07:25 MB (Rec: 06/11/20 10:31 MB [id number]) Subjective Physical Therapy Visit Type Type Treatment Note Visit Start Time 07:25 Visit Stop Time 08:03 Total Visit Minutes 38 Notes DaughterJoanne, in room this a .m. for treatment Physical Therapy Visit Comments Patient Comments I'm okay. Pt presents with word-finding trouble and daughter states that pt has expressive aphasia that was made worse by Diuladid Therapy Pain Assessment Pain When Pain Assessed At Rest Pain Present Pain Present Pain Reported Location Left sciatic Intensity 4 Pain Management Techniques Distraction,Re-positioning M4 PT-IP Mobility and Gait Start: 06/10/20 08:22 Freq: NEEDED Status: Active Protocol: Document 06/11/20 07:25 MB (Rec: 06/11/20 10:31 MB [id number]) PT-Bed Mobility Assessment Rolling Type of Rolling Roll to Left Level of Assist Minimal Assistance Supine to Sit Supine to Sit Contact Guard Assistance Scooting Scooting to Edge of Bed Contact Guard Assistance PT-Transfer Assessment Sit to and From Stand Sit to and from Stand Contact Guard Assistance,Use of Upper Extremities Equipment Transfer Assistive Device Gait Belt,Front Wheeled Walker Orthotic/Prosthetic Devices or Brace: No Transfers Transfer Destination Chair Transfer Ability Level of Assist Contact Guard Assistance,1 Person Assistance,Use of Upper Extremities Comments Mobility Comments Ortho PA-C nearby and daughter nearby and a lot of conversation going on and pt has a hard time following commands to not reach for PT's hand but to use her own hands , pt reaches for PT's hand and then moves to sitting without further manual asst Gait Assessment Gait Gait Assistance Required: Standby Assistance,Contact Guard Assist,1 Person Assist Distance (Feet) 150 Able to Maintain Weight Bearing Status Yes During Gait Assistive Devices Assistive Device Gait Belt,Front Wheeled Walker Orthotic/Prosthetic Devices or Brace: No Gait Deviations General Gait Pattern Antalgic,Flexed Trunk Factors Limiting Gait Function Factors Limiting Gait Function Decreased Activity Tolerance, Decreased Strength,Limited Range of Motion,Pain Comments Gait Comments Gait is much improved today. Pt gets up and gait trains down the hallway with lessening support of PT as gait distance increases: 150' x2 with rolling walker. Her gait speed and quality improves with increased gait distance as well and pt denies pain at end of gait. M5 PT-IP Objective Assessments Start: 06/10/20 08:22 Freq: NEEDED Status: Active Protocol: Document 06/10/20 12:02 (Rec: 06/10/20 12:25 [id number]) Orientation Orientation/Cognition Level of Alertness Confusional State Orientation Name,Age,Situation Language Function Ability Expressive Aphasia,Hard of Hearing Safety Awareness Decreased Safety Awareness Memory Description Short Term Impaired Comments pt appears to be drowsy and only able to follow 1-2 steps command. Gross Range of Motion Upper Extremity ROM Assessment Within Functional Limits Lower Extremity ROM Assessment Bilaterally Impaired Strength Upper Extremity Strength Assessment Within Functional Limits Lower Extremity Strength Assessment Bilaterally Impaired M6 PT-IP Treatment Start: 06/10/20 08:22 Freq: NEEDED Status: Active Protocol: Document 06/11/20 07:25 MB (Rec: 06/11/20 10:31 MB [id number]) Physical Therapy Treatment Exercises Exercises Ankle Pumps,Quad Sets,Heel Slides Education Education Provided Precautions,Safety Other Treatments Other Treatment Performed PT ed pt to use RW at home, push up with hands and reach back with hands for sit to stand, re-ed in anterior hip precautions. Daughter, Joanne, states that her father is coming in at 10 a.m. for training but this PT does not feel that pt needs more training before d/c but PT does state that another therapist can check back to see if there are questions when her comes in. Pt left up in chair with daughter and nsg nearby, no alarm in chair and nsg aware and clears PT M7 PT-IP Assessment and Plan Start: 12/29/20 08:22 Freq: NEEDED Status: Active Protocol: Document 06/11/20 07:25 MB (Rec: 06/11/20 10:31 MB [id number]) PT Summary Assessment and Plan Potential Rehabilitation Potential Good Status of Condition at Evaluation Evolving Summary Impairments Pain,ROM,Strength,Balance, Cognition,Bed Mobility, Transfers,Gait,Activity Tolerance Assessment Summary Pt is progressing well with gait and mobilty. Daughter nearby during treatment. Vitals are normal in the bed this morning and pt does not have light-headedness with getting up. She has trouble with word-finding and history of expressive aphasia. Her pain is well managed with activity this morning. Goals Bed Mobility Goal Standby Assistance,Contact Guard Assistance Transfer Goal Standby Assistance,Contact Guard Assistance,Front Wheeled Walker Gait Goal Standby Assistance,Contact Guard Assistance,Front Wheel Walker Gait Distance 75 Days to Meet Goals 5 Frequency of Treatment Frequency Of Treatment Twice a Day Treatment Plan Physical Therapy Treatment Plan Bed Mobility Training,Transfer Training,Gait Training, Therapeutic Exercise,Balance Retraining,Post Op Education, Discharge Planning,Hot or Cold Pack,Neuromuscular Re-ed Other Recommendations and Next Treatment CG training at 10:00 Focus review precautions with , ther ex, bed mobility, sit-stand and gait training Recommendations To Nursing Amount of Assist Needed 1 Person Assist Discharge Recommendations PT Discharge Recommendations Home with Assistance, Outpatient PT Transportation Needs at Discharge Private Vehicle
[2020-06-11 11:00] VITALS: BP 114/58; PULSE 73; RESP 17; TEMP 36.3; O2SAT 93
[2020-06-11] MEDS: GABAPENTIN 300 MG CAPSULE PO (12:11)
--- NOTE | 2020-06-11 13:48 | PC.NURSE ---
Discharge reviewed with patient, her and her daughter. They have no further questions or concerns at this time. Dressing remains CDI. Patient cleared by physical therapy. Patient has follow up as scheduled. Patient escorted out with all belongings with her family via wheelchair by BROADCAST OPERATIONS TECHNICIAN to discharge to home. Instructed to call surgeons office with questions or concerns.
--- NOTE | 2020-06-11 14:13 | CM.DPC ---
DCP/continued: Reviewed chart. Order obtained for patient to d/c home today. Order obtained for HH with [facility] as discussed yesterday in initial note. Asked KARIE/Namita to finalize HH with [facility]. P: Home with [facility]. DESIRAE Hammond
--- NOTE | 2020-06-11 14:39 | CM.DPNOTE ---
Faxed DC Summary and order to [facility] and received fax confirmation. Namita King CM Asst.
== END 2020-06-11 13:50 | disposition home or self-care (01) ==
LOC: OR 14:55 → AC 14:55
PROVIDERS: Admitting Provider Orthopaedic Surgery Adult Reconstructive Orthopaedic Surgery; Family Provider Family Medicine; PCP Nurse Practitioner Family; Referring Provider Orthopaedic Surgery Adult Reconstructive Orthopaedic Surgery; Visit Provider Orthopaedic Surgery Adult Reconstructive Orthopaedic Surgery
PROC: (CPT 27130; principal; 2020-06-09 10:45)
DX: M16.11 Unilateral primary osteoarthritis, right hip (principal); I10 Essential (primary) hypertension; M79.7 Fibromyalgia; Z86.73 Personal history of transient ischemic attack (TIA), and cerebral infarction without residual deficits; E03.9 Hypothyroidism, unspecified; G89.29 Other chronic pain; M54.9 Dorsalgia, unspecified; F11.90 Opioid use, unspecified, uncomplicated
CPT/HCPCS: 27130; 36415; 72170; 73501; 76000; 85014; 85018; 85025; 97110; 97116; 97162; 97530; C1776; G0378; J0690; J1100; J1170; J1885; J2270; J2274; J2405; J2704

== ENCOUNTER 2020-07-04 12:40 | Inpatient (IN) | payer MEDICARE, SELFPAY ==
[2020-06-09 15:02] VITALS: BMI 26.4
[2020-07-04] VITALS (16 sets, daily range): BP systolic 100–174; BP diastolic 29–79; PULSE 68–87; RESP 10–20; TEMP 35.9–37.1; O2SAT 91–100; BMI 25.7
--- NOTE | 2020-07-04 12:56 | ED.GENADULT ---
HPI - General Adult General Chief complaint: Skin/Abscess/Foreign Body Stated complaint: Dr. Umu cooper, possible infection wants treated Time Seen by Provider: 07/04/20 12:43 Source: patient Mode of arrival: Ambulatory History of Present Illness HPI narrative: Patient is an 85-year-old female who approximately 1 week ago underwent a right total hip arthroplasty the operative provider came to the emergency department inform me that this patient would be arriving to the emergency department and asked that I obtain labs with anticipation the patient be admitted for washout. Patient states she does have some redness around the bottom portion of the surgical incision. She is not having any fevers. Minimal pain. Related Data Home Medications Medication Instructions Recorded Confirmed magnesium oxide 400 mg PO Q DAY #0 01/08/16 06/03/20 acetaminophen 500 mg PO TID 06/03/20 06/09/20 alprazolam 0.25 mg PO BEDTIME 06/03/20 06/09/20 buprenorphine-naloxone 1 tab SUBLINGUAL DAILY 06/03/20 06/09/20 duloxetine 60 mg PO BID 06/03/20 06/09/20 furosemide 20 mg PO DAILY 06/03/20 06/09/20 ibuprofen 200 mg PO TID PRN 06/03/20 06/03/20 levothyroxine 25 mcg PO DAILY 06/03/20 06/09/20 liothyronine 25 mcg PO DAILY 06/03/20 06/09/20 melatonin 5 mg PO BEDTIME 06/03/20 06/03/20 pramipexole 0.125 mg PO BID 06/03/20 06/03/20 Previous Rx's Medication Instructions Recorded potassium chloride 10 meq PO DAILY #30 tab 08/27/19 aspirin 81 mg PO BID #40 tab 06/11/20 docusate sodium [DOK] 100 mg PO BID #40 cap 06/11/20 gabapentin [Neurontin] 300 mg PO TID PRN #90 cap 06/11/20 oxycodone 5 mg PO Q6H PRN #40 cap 06/11/20 Allergies Allergy/AdvReac Type Severity Reaction Status Date / Time No Known Drug Allergies Allergy Verified 05/27/20 11:53 Review of Systems Constitutional Constitutional: Denies fever(s) Musculoskeletal Musculoskeletal: Denies arthralgias and Denies tingling Integumentary/Breasts Comments: Redness around the surgical incision right hip Neurologic Neurologic: Denies behavioral changes and Denies tingling Psychiatric Psychiatric: Denies anxiety and Denies behavioral changes Hematologic/Lymphatic On Anticoagulants: No Patient History Medical History Actinic keratosis Arthritis Back disorder Breast cancer Expressive aphasia Hearing loss HTN (hypertension) Hyponatremia Hypothyroid Insomnia Lyme disease Migraine Rheumatic fever without heart involvement TIA (transient ischemic attack) Surgical History History of carpal tunnel repair History of hysterectomy History of lumbar laminectomy Hx of bilateral cataract extraction Hx of repair of left rotator cuff Hx of tonsillectomy Status post bunionectomy Status post hysterectomy Status post knee surgery Status post partial mastectomy Family History Father Stroke Grandfather Stroke Social History household members: spouse Smoking Status: Never smoker alcohol intake: current Smoking Status: Never smoker alcohol intake frequency: 0-2 drinks per day Substance Use Type: does not use Exam Initial Vital Signs Initial Vital Signs: Vital Signs Temperature 97.8 F 07/04/20 12:54 Pulse Rate 87 07/04/20 12:54 Respiratory Rate 15 07/04/20 12:54 Blood Pressure 174/79 H 07/04/20 12:54 Pulse Oximetry 100 07/04/20 12:54 Const General: cooperative and comfortable HENMT Head: normal to inspection and normocephalic Resp Effort & Inspection: normal respiratory effort Auscultation: clear to auscultation bilaterally Cardio Rate: regular rate Rhythm: regular rhythm Skin Other: Patient with an area of redness and induration at the inferior portion of the surgical incision. No drainage from the area. Extrem General: No edema Psych Appearance: grossly normal and well kempt Course Orders Ordered: ED Orders 07/04/20 12:49 C-Reactive Protein Quant Stat COVID19 Stat Complete Blood Count AUTO DIFF Stat Comprehensive Metabolic Panel Stat Erythrocyte Sedimentation Rate Stat Lactate (Lactic Acid) Stat 07/04/20 13:05 Consult to General Surgery Stat Sodium Chloride (Normal Saline 0.9%) 1,000 mls @ 125 mls/hr IV CONT THOR Vital Signs Vital signs: Vital Signs - 8 hr 07/04/20 12:54 Temperature 97.8 F Pulse Rate 87 Respiratory Rate 15 Blood Pressure 174/79 H Pulse Oximetry 100 Medical Decision Making MDM Narrative Medical decision making narrative: Patient is nontoxic appearing. Orders placed per recommendation of orthopedic surgery. Patient informed of the plan which she expressed knowledge of. Will admit for further evaluation and treatment. Discharge Plan Departure Patient Disposition: Admitted as Observation Clinical Impression: Post-operative infection
[2020-07-04 13:25] LABS: Add Manual Diff / Slide Review NO; Basophils Absolute Auto 100 /uL (0-100); Basophils Percent Auto 0.8 % (0-2); Eosinophils Absolute Auto 100 /uL (0-450); Eosinophils Percent Auto 1.6 % (2-4); Hematocrit 38.1 % (36-46); Hemoglobin 12.3 g/dL (12.0-16.0); Lymphocytes Absolute Auto 1100 /uL (1100-4500); Lymphocytes Percent Auto 16.1 % (25-40); Mean Corpuscular HGB Conc 32.3 % (30-36); Mean Corpuscular Hemoglobin 29.4 PG (26-34); Monocytes Absolute Auto 600 /uL (0-900); Monocytes Percent Auto 8.7 % (3-14); Neutrophils Absolute Auto 4700 /uL (1500-7000); Neutrophils Percent Auto 72.8 % (50-75); Platelet Count 520 X10^3/uL (150-400); Red Blood Cell Count 4.19 X10^6/uL (4.0-5.2); White Blood Cell Count 6.5 X10^3/uL (4.5-11.0)
[2020-07-04] MEDS: SODIUM CHLORIDE 0.9% 1,000 ML 125 ML IV (13:25)
[2020-07-04 13:35] LABS: Lactate (Lactic Acid) 0.7 mmol/L (0.7-2.1)
[2020-07-04 13:36] LABS: COVID19 -Nasal RAPID Negative (Negative)
[2020-07-04 13:38] LABS: Alanine Aminotransferase 15 IU/L (<35); Albumin Globulin Ratio 1.3 (1.0-2.8); Alkaline Phosphatase 134 U/L (38-126); Aspartate Aminotransferase 36 IU/L (14-36); BUN Creatinine Ratio 20.7 (6-22); Bilirubin Total 0.5 mg/dL (0.2-1.3); Blood Urea Nitrogen 19 mg/dL (7-17); C-Reactive Protein Quant 1.6 mg/dL (<1.0); Carbon Dioxide 32 mmol/L (22-32); Chloride 101 mmol/L (98-107); Estimated Glomerular Filt Rate 58.2 mL/min (>60); Globulin 3.1 g/dL (1.7-4.1); Glucose 101 mg/dL (80-110); HEMOLYSIS < 15 (0-50); Potassium 4.1 mmol/L (3.4-5.1); Sodium 135 mmol/L (137-145); Total Protein 7.1 g/dL (6.3-8.2)
[2020-07-04 13:42] LABS: Erythrocyte Sedimentation Rate 47 MM/HR (0-20)
[2020-07-04] MEDS: LACTATED RINGERS 1,000 ML 42 ML IV ×2 (14:14→17:28)
--- NOTE | 2020-07-04 15:06 | PM.HP.1 ---
History of Present Illness History of Present Illness Date Patient Seen: 07/04/20 Time Patient Seen: 15:06 Chief complaint: Dr. Sanz sent, possible infection wants treated Narrative: Patient is a 85-year-old female who is now 3 weeks status post right anterior total hip arthroplasty. At her 2 week postop visit is no there is a little bit erythema of the distal pole of her incision but the incision itself was not draining and had no erythema. She was prescribed a week worth of Keflex and told to call clinic if she had any worsening of symptoms. She presented today after her home health nurse noted that there was worsening erythema she presented clinic. Picture in clinic is concerning for surgical site infection she does not have any pain or constitutional symptoms. Patient History Medical History Actinic keratosis Arthritis Back disorder Breast cancer Expressive aphasia Hearing loss HTN (hypertension) Hyponatremia Hypothyroid Insomnia Lyme disease Migraine Rheumatic fever without heart involvement TIA (transient ischemic attack) Surgical History History of carpal tunnel repair History of hysterectomy History of lumbar laminectomy Hx of bilateral cataract extraction Hx of repair of left rotator cuff Hx of tonsillectomy Status post bunionectomy Status post hysterectomy Status post knee surgery Status post partial mastectomy Family & Social History Family History Father Stroke Grandfather Stroke Social History: household members spouse Prior Living Arrangements Custodial Facility Safety & Behavioral: Feels Safe in Current Yes Environment Been Physically Hurt or No Threatened By a Person Tobacco & Substance use: Smoking Status Never smoker alcohol intake current alcohol intake frequency 0-2 drinks per day Substance Use Type does not use Meds Home Medications and Allergies Home Medications Medication Instructions Recorded Confirmed Type magnesium oxide 400 mg PO Q DAY #0 01/08/16 06/03/20 History potassium chloride 10 meq PO DAILY #30 tab 08/27/19 06/03/20 Rx acetaminophen 500 mg PO TID 06/03/20 06/09/20 History alprazolam 0.25 mg PO BEDTIME 06/03/20 06/09/20 History buprenorphine-naloxone 1 tab SUBLINGUAL DAILY 06/03/20 06/09/20 History duloxetine 60 mg PO BID 06/03/20 06/09/20 History furosemide 20 mg PO DAILY 06/03/20 06/09/20 History ibuprofen 200 mg PO TID PRN 06/03/20 06/03/20 History levothyroxine 25 mcg PO DAILY 06/03/20 06/09/20 History liothyronine 25 mcg PO DAILY 06/03/20 06/09/20 History melatonin 5 mg PO BEDTIME 06/03/20 06/03/20 History pramipexole 0.125 mg PO BID 06/03/20 06/03/20 History aspirin 81 mg PO BID #40 tab 06/11/20 Rx docusate sodium [DOK] 100 mg PO BID #40 cap 06/11/20 Rx gabapentin [Neurontin] 300 mg PO TID PRN #90 cap 06/11/20 Rx oxycodone 5 mg PO Q6H PRN #40 cap 06/11/20 Rx Allergies Allergy/AdvReac Type Severity Reaction Status Date / Time No Known Drug Allergies Allergy Verified 05/27/20 11:53 Exam Vital Signs (past 8 hours): - 07/04/20 12:54 07/04/20 13:58 Temperature 97.8 F 98.8 F Pulse Rate 87 77 Respiratory Rate 15 16 Blood Pressure 174/79 H 142/69 H Pulse Oximetry 100 100 Oxygen Delivery Method Room Air Narrative Exam Narrative: Neurovascular intact in right lower extremity. Right anterior based incision is well healed however there is erythema at the distal portion of the incision extending fiber 6 cm distal. Skin is warm no fluctuance no drainage. Objective Labs Result Diagrams: 07/04/20 13:15 07/04/20 13:15 Labs: Laboratory Results - last 24 hr 07/04/20 07/04/20 07/04/20 13:08 13:15 13:15 WBC 6.5 RBC 4.19 Hgb 12.3 Hct 38.1 MCV 91.0 MCH 29.4 MCHC 32.3 RDW 14.0 Plt Count 520 H Neut % (Auto) 72.8 Lymph % (Auto) 16.1 L [place] % (Auto) 8.7 Eos % (Auto) 1.6 L Baso % (Auto) 0.8 Neut # (Auto) 4700 Lymph # (Auto) 1100 [place] # (Auto) 600 Eos # (Auto) 100 Baso # (Auto) 100 ESR 47 H Sodium 135 L Potassium 4.1 Chloride 101 Carbon Dioxide 32 BUN 19 H Creatinine 0.92 Estimated GFR 58.2 L BUN/Creatinine Ratio 20.7 Glucose 101 Lactate Calcium 9.0 Total Bilirubin 0.5 AST 36 ALT 15 Alkaline Phosphatase 134 H C-Reactive Protein 1.6 H Total Protein 7.1 Albumin 4.0 Globulin 3.1 Albumin/Globulin Ratio 1.3 SARS-CoV-2 (PCR) Negative 07/04/20 13:15 WBC RBC Hgb Hct MCV MCH MCHC RDW Plt Count Neut % (Auto) Lymph % (Auto) [place] % (Auto) Eos % (Auto) Baso % (Auto) Neut # (Auto) Lymph # (Auto) [place] # (Auto) Eos # (Auto) Baso # (Auto) ESR Sodium Potassium Chloride Carbon Dioxide BUN Creatinine Estimated GFR BUN/Creatinine Ratio Glucose Lactate 0.7 Calcium Total Bilirubin AST ALT Alkaline Phosphatase C-Reactive Protein Total Protein Albumin Globulin Albumin/Globulin Ratio SARS-CoV-2 (PCR) Assessment & Plan Assessment & Plan narrative: Patient is a 85-year-old female who is now approximately 3 weeks status post right anterior total hip arthroplasty. Patient appears to have a surgical site infection there is no drainage but there is erythema and induration of the skin. Surgical wound has never drained postop. She has not had any constitutional symptoms however she continues to have erythema. I had a long discussion with the patient regarding surgical site infection and the necessity for irrigation debridement. I discussed the risks and benefits of surgery including continued infection, fracture, damage to local structures such as vessels and nerves, need for future surgeries, etc.. Patient demonstrates understanding the risks and benefits of surgery and wishes to proceed. Plan will be for a irrigation debridement of the right surgical site with head liner exchange. - OCTOR right hip COVID-19 COVID-19 status: Negative Result date/Date tested (Pos, Neg/Pending): 07/04/20 Time Spent With Patient Time with patient: 25 - 35 minutes
--- NOTE | 2020-07-04 15:12 | PM.PREOP ---
Pre-operative Note COVID-19 COVID-19 status: Negative Result date/Date tested (Pos, Neg/Pending): 07/04/20 Interval Note History & Physical reviewed/Exam performed by Physician: Yes Changes to H&P: No H&P completed within 30 days and has changed as indicated here:: Plan for right hip irrigation and debridement with head/liner exchange
--- NOTE | 2020-07-04 16:06 | SUR.OPER ---
Supine on padded [place] table with bilateral legs secured in padded positioning boots and suspended in positioning spars, operative leg in traction per surgeon. Head on one pillow. Arm on non-operative side secured on padded armboard <90 degrees abduction. Arm on operative side padded and resting across chest then secured with tape over sheet. Padded perineal post in place per surgeon.
[2020-07-04] MEDS: CEFAZOLIN 2 GM/100 ML FROZ.PIGGY IV (16:07)
[2020-07-04] MEDS: VANCOMYCIN 1,000 MG VIAL 1000 MG TOP (16:36)
--- NOTE | 2020-07-04 18:00 | PM.OP.1 ---
Operative Date/Time/Diagnoses Date of procedure: 07/04/20 Time of procedure: 18:00 Pre-op diagnosis: surgical site infection right anterior DUSTIN Post-op diagnosis: same Procedure & Clinicians Procedure: Irrigation debridement right anterior hip surgical site as well as head liner exchange Same procedure as scheduled: Yes Indications: Patient is a 85-year-old female 3 weeks status post right anterior total hip arthroplasty she has residual erythema about the incision which is worsened over last several days. Surgeon: Jaret Sanz Instructional Interventionist: Maureen Claudio Anesthesia Type: General Operative Notes Findings: Seroma communicating through the tensor fascia. Closure Type: non-primary Specimen(s): none sent (superficial swab, superficial tissue, deep swab, deep tissue for culture) Prosthetic devices, grafts, tissues, transplants, or devices: [employer] R3 54 mm x 36 mm polyethylene neutral offset liner 36-3 Oxinium head Estimated Blood Loss (mL): 200 Procedure in detail: Patient was met in the preoperative holding area where the site and side of surgery were marked by . informed consent was reviewed in clinic but was also reviewed the preoperative holding area the risks and benefits of surgery were discussed with the patient. All last minute questions were answered. Patient was then brought back in the operating room where she was transferred onto the [place] table and induced under general anesthesia. Bilateral feet were placed in well-padded [place] table boots. The right lower extremity then prepped and draped in normal sterile fashion. A surgical time-out per was performed verifying the site and side of surgery as well as the name of the patient. The old surgical site was marked out and the scar was ellipsed and the incision was extended 3 cm distally. There is no gross purulence encountered. As we were dissecting down to the tensor fascia a becker of seroma was encountered. This was cultured. The seroma communicated through the tensor fascia. The tensor fascia was then opened residual suture was removed. The suture from the capsulotomy repair was then also removed this gave us access to the implants. No purulence was discovered at any point along the way. Tissue appeared to be viable healing tissue with granulation tissue. The superficial tissue was taken for culture as well as deep tissue. The hip was then dislocated the head was then removed from the stem. The stem itself was interrogated and was found be well fixed no purulence along the stem bone interface. The polyethylene liner was then removed from the cup and the cup and stem were scrubbed with chlorhexidine soap with a scrub brush. 3 L normal saline was then used to irrigate the hip followed by Bactisure solution which was placed in the hip and irrigated throughout the hip. Once a pressure bag was completed another 3 L of normal saline were irrigated through the hip. Betadine solution was then introduced into the hip and allowed to sit for 5 minutes which was then lavage away with another 3 L of normal saline. A new 54 mm x 36 mm neutral offset liner was then placed and malleted into place and confirmed to be flushed with the acetabular cup. A 36-3 Oxinium head was then malleted onto the trunnion and the hip was reduced. Hip was stable through external range of motion to approximately 120. At which time the tissues became tight and the hip remained reduced. The hip was then externally rotated 90? and extend to the floor without dislocation as well the hip was then brought back into neutral rotation. The capsulotomy was repaired using a running Ethibond suture. 1 g of vancomycin powder was then placed into the wound. Followed by closure of the tensor fascia with a running #1 Vicryl. The fat layer was then closed with a running #1 Vicryl. Subcutaneous layer was closed with 2-0 Vicryl in an interrupted fashion followed by marium on skin an Aquacel dressing. Complications: none Post-operative Condition: stable Disposition: PACU Plan for aftercare: Ancef and Vanco IV until culutures return, WBAT RLE, ASA 81mg BID for 6 weeks for DVT prophyalxis
--- NOTE | 2020-07-04 18:14 | DI.RAD.S_ITS ---
PROCEDURE: XR PELVIS 1-2V INDICATIONS: post-op TECHNIQUE: 1 view of the lower pelvis acquired. COMPARISON: [facility], , XR PELVIS 1-2V, 06/09/2020, 13:48. FINDINGS: Bones: Patient is status post right hip arthroplasty, with hardware components in expected positions. The hip joint appears congruent. The visualized bony structures appear intact. The image from before was also a postop film from total right hip arthroplasty. Skin marium are now present. There is no postoperative air. There is no evidence of hardware failure or loosening. Soft tissues: Overlying postoperative changes are noted. No suspicious soft tissue densities. IMPRESSION: Expected appearance of total right hip arthroplasty. No acute bony abnormality identified. Dictated by: Rahat Pena M.D. on 07/04/2020 at 18:31 Approved by: Rahat Pena M.D. on 07/04/2020 at 18:33
--- NOTE | 2020-07-04 18:19 | SUR.PHASEI ---
Pt. to PACU extremely aggitated and moving around on the bed. meds for px given as ordered, pt. very/extremely difficult to redirect as she is [place] and has expressive aphagia. this nurse needed the assistance of 2 other nurese to keep pt. safe. oxygen applied for low sats following px med administration. pt. is very difficult. and unable to state px level. ongoing monitoring
[2020-07-04] MEDS: hydrOXYzine 50 MG/ML INJ 25 MG IM (18:25)
[2020-07-04] MEDS: MORPHINE 10 MG/ML INJ IV (18:33)
[2020-07-04] MEDS: ONDANSETRON 4 MG/2 ML INJ IV (18:34)
[2020-07-04] MEDS: OXYCODONE/ACETAMINOPHEN 5/325 TABLET 1 TAB PO (18:39)
[2020-07-04] MEDS: PRAMIPEXOLE 0.25 MG TABLET 0.125 MG PO (20:49)
[2020-07-04] MEDS: VANCOMYCIN 1,000 MG/200 ML PIGGYBACK 200 MG IV (20:49)
[2020-07-04] MEDS: ALPRAZolam 0.25 MG TABLET PO (20:49)
[2020-07-04] MEDS: ACETAMINOPHEN 325 MG TABLET 650 MG PO (20:49)
[2020-07-04] MEDS: MELATONIN 3 MG TABLET 6 MG PO (20:49)
[2020-07-04] MEDS: DOCUSATE 100 MG CAPSULE PO (20:49)
[2020-07-04] MEDS: OXYCODONE IR 5 MG TABLET PO (20:49)
[2020-07-04] MEDS: ASPIRIN EC 81 MG TABLET PO (20:50)
[2020-07-04] MEDS: IBUPROFEN 400 MG TABLET PO (20:50)
[2020-07-04] MEDS: DULOXETINE 30 MG CAPSULE 60 MG PO (20:50)
[2020-07-04] MEDS: LACTATED RINGERS 1,000 ML 100 ML IV (20:53)
[2020-07-04 21:16] LABS: Add Manual Diff / Slide Review NO; Basophils Absolute Auto 0 /uL (0-100); Basophils Percent Auto 0.2 % (0-2); Eosinophils Absolute Auto 0 /uL (0-450); Hematocrit 31.5 % (36-46); Lymphocytes Absolute Auto 300 /uL (1100-4500); Lymphocytes Percent Auto 2.7 % (25-40); Mean Corpuscular HGB Conc 31.8 % (30-36); Mean Corpuscular Volume 91.1 fL (80-100); Monocytes Absolute Auto 200 /uL (0-900); Monocytes Percent Auto 1.7 % (3-14); Neutrophils Absolute Auto 11400 /uL (1500-7000); Neutrophils Percent Auto 95.4 % (50-75); Platelet Count 449 X10^3/uL (150-400); Red Blood Cell Count 3.46 X10^6/uL (4.0-5.2); Red Cell Distribution Width 14.1 % (11.6-14.8)
[2020-07-05] MEDS: IBUPROFEN 400 MG TABLET PO ×6 (00:23→20:01)
[2020-07-05] MEDS: CEFAZOLIN 2 GM/100 ML FROZ.PIGGY IV ×3 (00:23→15:35)
[2020-07-05] MEDS: OXYCODONE IR 5 MG TABLET PO ×5 (00:24→16:43)
[2020-07-05] MEDS: HYDROMORPHONE 0.5 MG INJ 0.2 MG IV (01:55)
--- NOTE | 2020-07-05 02:43 | PC.NURSE ---
Addendum entered by Mirella Tinoco R.N. 07/05/20 06:20: Pt somewhat impulsive. Several times she set off her bed alarm to get up to the toilet. Also confused, stated her children were, between 27 and 32. Pain abated w/low back and leg massage. Original Note: Pt c/o of bilateral leg pain. Oxycodone and Dilaudid have not controlled her pain well. Ice is in place on her R thigh. She appears to be getting a bit more confused as the night goes on. She was found sitting on the edge of the bed and when asked to please call for help, she appeared confused and stated she, just needed the bathroom. Bed alarm is on and pt will be checked on frequently.
[2020-07-05 03:35] VITALS: BP 112/63; PULSE 88; RESP 16; TEMP 37; O2SAT 100
[2020-07-05] MEDS: LIOTHYRONINE 25 MCG TABLET PO (05:28)
[2020-07-05] MEDS: LEVOTHYROXINE 25 MCG TABLET PO (05:29)
[2020-07-05 07:01] LABS: Hematocrit 25.7 % (36-46); Hemoglobin 8.3 g/dL (12.0-16.0); Mean Corpuscular HGB Conc 32.3 % (30-36); Mean Corpuscular Hemoglobin 29.5 PG (26-34); Mean Corpuscular Volume 91.2 fL (80-100); Platelet Count 390 X10^3/uL (150-400); Red Blood Cell Count 2.82 X10^6/uL (4.0-5.2); Red Cell Distribution Width 13.9 % (11.6-14.8); White Blood Cell Count 11.2 X10^3/uL (4.5-11.0)
[2020-07-05 08:00] VITALS: BP 118/46; PULSE 83; RESP 15; TEMP 35.8; O2SAT 100
[2020-07-05] MEDS: POTASSIUM CHLORIDE 10 MEQ TAB PO (08:49)
[2020-07-05] MEDS: DULOXETINE 30 MG CAPSULE 60 MG PO ×2 (08:49→20:02)
[2020-07-05] MEDS: DOCUSATE 100 MG CAPSULE PO ×2 (08:50→20:01)
[2020-07-05] MEDS: ASPIRIN EC 81 MG TABLET PO ×2 (08:50→20:01)
[2020-07-05] MEDS: FUROSEMIDE 20 MG TABLET PO (08:50)
[2020-07-05] MEDS: MAGNESIUM OXIDE 400 MG TABLET PO (08:50)
[2020-07-05] MEDS: PRAMIPEXOLE 0.25 MG TABLET 0.125 MG PO ×2 (08:50→20:01)
[2020-07-05] MEDS: ACETAMINOPHEN 325 MG TABLET 650 MG PO ×3 (08:51→20:02)
--- NOTE | 2020-07-05 09:11 | PM.PN.1 ---
Subjective Subjective Date Patient Seen: 07/05/20 Interval history: Patient is POD# 1 s/p Irrigation debridement right anterior hip surgical site as well as head and liner exchange with Dr. Sanz. Pain moderate, complaining of left sided radicular pain which is chronic. No chest pain or shortness of breath. Tolerating a diet. Voiding appropriately. Exam Vital Signs (past 8 hours): - 07/05/20 03:35 07/05/20 08:00 Temperature 98.6 F 96.4 F L Pulse Rate 88 83 Respiratory Rate 16 15 Blood Pressure 112/63 118/46 L Pulse Oximetry 100 100 Oxygen Delivery Method Nasal Cannula Oxygen Flow Rate 0 Narrative Exam Narrative: 85 year old female resting in bed. Alert and oriented, with some word finding difficulty which seems to be her baseline. No acute distress. at the bedside. Aquacel dressing in place is CDI. Half dollar size area of drainage at proximal end of dressing. Patient able to flex and extend the hip as well as dorsiflex and plantar flex the ankle. Calves are soft, nontender. Palpable pedal pulse. Objective Labs Result Diagrams: 07/05/20 06:50 07/04/20 13:15 Labs: Laboratory Results - last 24 hr 07/04/20 07/04/20 07/04/20 13:08 13:15 13:15 WBC 6.5 RBC 4.19 Hgb 12.3 Hct 38.1 MCV 91.0 MCH 29.4 MCHC 32.3 RDW 14.0 Plt Count 520 H Neut % (Auto) 72.8 Lymph % (Auto) 16.1 L [place] % (Auto) 8.7 Eos % (Auto) 1.6 L Baso % (Auto) 0.8 Neut # (Auto) 4700 Lymph # (Auto) 1100 [place] # (Auto) 600 Eos # (Auto) 100 Baso # (Auto) 100 ESR 47 H Sodium 135 L Potassium 4.1 Chloride 101 Carbon Dioxide 32 BUN 19 H Creatinine 0.92 Estimated GFR 58.2 L BUN/Creatinine Ratio 20.7 Glucose 101 Lactate Calcium 9.0 Total Bilirubin 0.5 AST 36 ALT 15 Alkaline Phosphatase 134 H C-Reactive Protein 1.6 H Total Protein 7.1 Albumin 4.0 Globulin 3.1 Albumin/Globulin Ratio 1.3 SARS-CoV-2 (PCR) Negative 07/04/20 07/04/20 07/05/20 13:15 21:08 06:50 WBC 12.0 H D 11.2 H RBC 3.46 L 2.82 L Hgb 10.0 L 8.3 L Hct 31.5 L 25.7 L MCV 91.1 91.2 MCH 29.0 29.5 MCHC 31.8 32.3 RDW 14.1 13.9 Plt Count 449 H 390 Neut % (Auto) 95.4 H D Lymph % (Auto) 2.7 L [place] % (Auto) 1.7 L Eos % (Auto) 0.0 L Baso % (Auto) 0.2 Neut # (Auto) 23688 H Lymph # (Auto) 300 L [place] # (Auto) 200 Eos # (Auto) 0 Baso # (Auto) 0 ESR Sodium Potassium Chloride Carbon Dioxide BUN Creatinine Estimated GFR BUN/Creatinine Ratio Glucose Lactate 0.7 Calcium Total Bilirubin AST ALT Alkaline Phosphatase C-Reactive Protein Total Protein Albumin Globulin Albumin/Globulin Ratio SARS-CoV-2 (PCR) PFSH Medical History Actinic keratosis Arthritis Back disorder Breast cancer Expressive aphasia Hearing loss HTN (hypertension) Hyponatremia Hypothyroid Insomnia Lyme disease Migraine Rheumatic fever without heart involvement TIA (transient ischemic attack) Surgical History History of carpal tunnel repair History of hysterectomy History of lumbar laminectomy Hx of bilateral cataract extraction Hx of repair of left rotator cuff Hx of tonsillectomy Status post bunionectomy Status post hysterectomy Status post knee surgery Status post partial mastectomy Family History Father Stroke Grandfather Stroke Social History household members: spouse Smoking Status: Never smoker alcohol intake: current Assessment & Plan Assessment & Plan narrative: -POD# 1 s/p Irrigation debridement right anterior hip surgical site as well as head and liner exchange. -Cultures taken intraoperatively of both fluid and tissue are pending. Will maintain on empiric Ancef 2mg Q8hrs and Vancomycin dosed per pharmacy, will adjust once cultures are finalized. Anticipate 6 weeks of IV antibiotics. PICC ordered today in anticipation of this. -WBAT with PT/OT. -ASA 81mg BID for DVT prophylaxis as well as SCDs. -Patient was discharge to home with her available as shipping & receiving lead after DUSTIN 3 weeks ago. Discharge from this admission will depend on her husbands ability to assist with antibiotic administration. Otherwise will need discharge to SNF.
--- NOTE | 2020-07-05 10:39 | CM.DANOTE ---
Discharge Planning/Care Management DCP: assessment: case received, EMR reviewed and met with pt after discussing case with ortho WILLIAM Claudio. Introduced self and role. Pt is an 85 year old female who had recent R DUSTIN/anterior approach and has admitted to care of Dr. Sanz for a post op infection. Payer: [facility] Admission status: in review. Pt and her live on [address]: physical address confirmed: [address] [place] [id number]. Spoke with ortho WILLIAM Reddy to obtain clarity on the POC. She confirmed that pt would need 6 weeks of IV antibiotics and that these would be determined after cultures returned and ID gave recommendations. PICC is ordered. OT order obtained in addition to the already present PT order. ? at that time if snf vs home [facility] would be the d/c plan. Spoke with pt re d/c issues/options. She reported that she had been doing well in her recovery at home with spouse assist and [facility] RN/PT/OT. She says she also has a daughter nikolas who lives on [address] and who is available to help if need be and that her daughter Joanne, I think she is my POA who lives in [place] will be coming up to assist her. She says she has not had much time to think through all this as I just though I was going to the clinic and then I ended up in the hospital going to surgery. Her arrive as our conversation was finishing. Left them with WILLIAM Reddy and with plan to send off referral to [facility] to check on her benefit under [facility]. Agreed to update both once more information on this is obtained. Pt was clear that she is very hopeful she can avoid going to a SNF setting. Referral is now given to [facility] on-call pharmacist Lorna: [phone] by phone discussion and then fax. She stated they would get to work on the insurance authorization piece and with plan at this point for home likely early next week if all can be arranged. CM Discharge Assessment Start: 07/05/20 10:32 Freq: Status: Active Protocol: Document 07/05/20 10:34 ITV (Rec: 07/05/20 10:39 ITV [id number]) Discharge Planning Assessment Advance Directives? Yes History Provided By Patient,Family Member,Medical Record Has Patient been admitted in last 30 Yes days? Comment At [facility] 06/10-06/11 with a d/c to home and home health services. R DUSTIN/ anterior approach Prior Living Arrangements House Household Members spouse Independent with ADL's recovering from hip surgery Is patient alert and oriented? Yes Patient/Family Preference Home with Home Health Comment is already open to [facility] services Referrals Initiated Home Health,Other Additional Comment home [facility] Whiteboard Updated in Patient Room with Yes name and ext. # of [facility] Review Status In Process
--- NOTE | 2020-07-05 10:41 | PT.IIE ---
Surgery Performed Operation Date: 07/04/20 15:00 Actual Procedures p I&D Head and Liner Exchange - Jaret Sanz MD Surgical History (Last Reviewed 07/05/20 @ 09:12 by Maureen Claudio PA-C) History of carpal tunnel repair History of hysterectomy History of lumbar laminectomy Hx of bilateral cataract extraction Hx of repair of left rotator cuff Hx of tonsillectomy Status post bunionectomy Status post hysterectomy Status post knee surgery Status post partial mastectomy Medical History (Last Reviewed 07/05/20 @ 09:12 by Maureen Claudio PA-C) Actinic keratosis Arthritis Back disorder Breast cancer Expressive aphasia Hearing loss HTN (hypertension) Hyponatremia Hypothyroid Insomnia Lyme disease Migraine Rheumatic fever without heart involvement TIA (transient ischemic attack) Physical Therapy Inpatient Evaluation/Re-Eval M1 PT/OT-IP Prior Functional Status Start: 07/05/20 11:51 Freq: NEEDED Status: Active Protocol: Document 07/05/20 11:51 CGR (Rec: 07/05/20 12:12 CGR [id number]) Medical Review Prior Functional Status Medical History Reviewed Yes Communication PT is an effective verbal communicator with minimal expressive aphasia. She is able to relay her needs. Mobility and Gait Pt was MOD I with her walker since her sx. Activities of Daily Living and IADL's Pt was MOD I for ADLs and assists with IADLs. Social History Household Members spouse Living Arrangements House Number of Floors (Floors) One Floor Number of Stairs To Enter/Railing? No steps Home Environment High Toilet,Walk in Shower, Built-In Shower Seat Home Equipment Front Wheel Walker,Straight Cane,Manual Wheelchair,Hand Held Shower,Post Office Clerk,Grab Bars In Shower Employment Status Retired Additional Social History Comment Pt lives with her in an independent living facility on [facility]. M1 PT/OT-IP Prior Functional Status Start: 07/05/20 13:22 Freq: NEEDED Status: Active Protocol: Document 07/05/20 10:41 AB (Rec: 07/05/20 13:34 AB [id number]) Medical Review Prior Functional Status Medical History Reviewed Yes Communication able to make needs known but requires increase time to respond to questions and is [place] Mobility and Gait pt stated that she is modified independent with all mobilities and ambulation using FWW Activities of Daily Living and IADL's per OT's note: Pt was MOD I for ADLs and assists with IADLs. Social History Household Members spouse Living Arrangements House Number of Floors (Floors) One Floor Number of Stairs To Enter/Railing? No steps Home Environment High Toilet,Walk in Shower, Built-In Shower Seat Home Equipment Front Wheel Walker,Straight Cane,Post Office Clerk,Grab Bars Near Toilet,Grab Bars In Shower Employment Status Retired Additional Social History Comment Pt lives with her in an independent living facility on [address]. M2 PT-IP Current Condition Start: 07/05/20 13:22 Freq: NEEDED Status: Active Protocol: Document 07/05/20 10:41 AB (Rec: 07/05/20 13:34 AB [id number]) Physical Therapy Current Condition Current Condition Evaluation Date 07/05/20 Treatment Diagnosis RTHA anterior I&D; difficulty in walking Onset Date 07/04/20 Precautions Anterior Hip Precautions No Hip Extension,No Hip External Rotation Weight Bearing Status Weight Bearing Status Weight Bear as Tolerated Allowed Weight Bearing Amount (enter % RLE WBAT or #) (%) M3 PT-IP Subjective Start: 07/05/20 13:22 Freq: NEEDED Status: Active Protocol: Document 07/05/20 10:41 AB (Rec: 07/05/20 13:34 AB [id number]) Subjective Physical Therapy Visit Type Type Initial Evaluation Visit Start Time 10:41 Visit Stop Time 11:09 Total Visit Minutes 28 Number of ROTARY HELPER Visits 0 Physical Therapy Visit Comments Patient Comments pt is agreeable to do PT; requested to use the toilet Therapy Pain Assessment Pain When Pain Assessed At Rest Pain Present Pain Present Pain Reported Location Left sciatic Intensity 5 Scale Used Numeric (0 - 10) Pain Management Techniques Apply Cold,Distraction, Modification of Treatment,Re- positioning,Timing of Activity with Medications Right Hip Intensity 4 Scale Used Numeric (0 - 10) Pain Management Techniques Apply Cold,Distraction, Modification of Treatment,Re- positioning,Timing of Activity with Medications M4 PT-IP Mobility and Gait Start: 07/05/20 13:22 Freq: NEEDED Status: Active Protocol: Document 07/05/20 10:41 AB (Rec: 07/05/20 13:34 AB [id number]) PT-Bed Mobility Assessment Supine to Sit Supine to Sit Maximum Assistance,Bedrails PT-Transfer Assessment Sit to and From Stand Sit to and from Stand Contact Guard Assistance, Minimal Assistance,1 Person Assistance,Use of Upper Extremities Equipment Transfer Assistive Device Gait Belt,Front Wheeled Walker Orthotic/Prosthetic Devices or Brace: No Transfers Transfer Destination Toilet Transfer Technique ambulated using FWW Transfer Ability Level of Assist Minimal Assistance,1 Person Assistance,Use of Upper Extremities Comments Mobility Comments completed supine to sit max A and max cues. pt was able to sit on EOB SBA. completed sit to stand CGA to min A and ambulated to the toilet using FWW CGA to min A. ambulated from the toilet towards the sink using FWW CGA to min A and cues. pt presents with slight L knee giving out requiring min A and pt stated that L hip is more painful that R. pt was able to stand by the sink min A while completing handwashing. ambulated towards the chair using FWW CGA to min A. positioned on chair. pt required constant cues to maintain hip precautions. spouse also has memory issues and unable to cue pt with precautions. call light and table within reach. Gait Assessment Gait Gait Assistance Required: Contact Guard Assist,Minimum Assistance Distance (Feet) 12 Able to Maintain Weight Bearing Status Yes During Gait Assistive Devices Assistive Device Gait Belt,Front Wheeled Walker Orthotic/Prosthetic Devices or Brace: No Gait Deviations General Gait Pattern Antalgic,Decreased Stride Length,Decreased Feet Clearance Factors Limiting Gait Function Factors Limiting Gait Function Decreased Activity Tolerance, Decreased Strength,Difficulty Following Directions,Limited Range of Motion,Pain,Poor Balance,Poor Safety Awareness PT-Balance Assessment Sitting Balance and Reactions Static Sitting Balance Ability Good Dynamic Sitting Balance Ability Good Standing Balance and Reactions Static Standing Balance Ability Fair Dynamic Standing Balance Ability Fair Device Used FWW M5 PT-IP Objective Assessments Start: 07/05/20 13:22 Freq: NEEDED Status: Active Protocol: Document 07/05/20 10:41 AB (Rec: 07/05/20 13:34 AB [id number]) Orientation Orientation/Cognition Level of Alertness Alert Orientation Name Language Function Ability Hard of Hearing Safety Awareness Decreased Safety Awareness Memory Description Short Term Impaired Strength Lower Extremity Strength Assessment Bilaterally Impaired Hip 3+/5 Knee 4-/5 Muscle Tone Muscle Tone WNL Yes M6 PT-IP Treatment Start: 07/05/20 13:22 Freq: NEEDED Status: Active Protocol: Document 07/05/20 10:41 AB (Rec: 07/05/20 13:34 AB [id number]) Physical Therapy Treatment Education Education Provided Precautions,Weight Bearing Status,Post-Op Packet,Safety M7 PT-IP Assessment and Plan Start: 07/05/20 13:22 Freq: NEEDED Status: Active Protocol: Document 07/05/20 10:41 AB (Rec: 07/05/20 13:34 [id number]) PT Summary Assessment and Plan Potential Rehabilitation Potential Good Status of Condition at Evaluation Evolving Summary Impairments Pain,ROM,Strength,Balance, Coordination,Sensation,Tone, Cognition,Bed Mobility, Transfers,Gait,Activity Tolerance Assessment Summary pt requiring CGA to min A with mobility and will have her spouse to assist her at home. pt will likely progress during hospital stay and may go home when medically stable. Goals Bed Mobility Goal Independent Transfer Goal Independent,Front Wheeled Walker Gait Goal Independent,Front Wheel Walker Gait Distance 150 Days to Meet Goals 5 Frequency of Treatment Frequency Of Treatment Twice a Day Treatment Plan Physical Therapy Treatment Plan Bed Mobility Training,Transfer Training,Gait Training, Therapeutic Exercise,Balance Retraining,Post Op Education, Discharge Planning,Hot or Cold Pack,Neuromuscular Re-ed, Coordination Retraining,Manual Therapy Recommendations To Nursing Amount of Assist Needed 1 Person Assist Discharge Recommendations PT Discharge Recommendations Home with Assistance,Home Health Transportation Needs at Discharge Private Vehicle
--- NOTE | 2020-07-05 11:46 | OT.IP.EVAL ---
Surgery Performed Operation Date: 07/04/20 15:00 Actual Procedures p I&D Head and Liner Exchange - Jaret Sanz MD Past Medical History (Last Reviewed 07/05/20 @ 09:12 by Maureen Claudio PA-C) Actinic keratosis Arthritis Back disorder Breast cancer Expressive aphasia Hearing loss HTN (hypertension) Hyponatremia Hypothyroid Insomnia Lyme disease Migraine Rheumatic fever without heart involvement TIA (transient ischemic attack) Surgical History (Last Reviewed 07/05/20 @ 09:12 by Maureen Claudio PA-C) History of carpal tunnel repair History of hysterectomy History of lumbar laminectomy Hx of bilateral cataract extraction Hx of repair of left rotator cuff Hx of tonsillectomy Status post bunionectomy Status post hysterectomy Status post knee surgery Status post partial mastectomy Occupational Therapy Inpatient Evaluation/Re-Eval M1 PT/OT-IP Prior Functional Status Start: 07/05/20 11:51 Freq: NEEDED Status: Active Protocol: Document 07/05/20 11:51 CGR (Rec: 07/05/20 12:12 CGR [id number]) Medical Review Prior Functional Status Medical History Reviewed Yes Communication PT is an effective verbal communicator with minimal expressive aphasia. She is able to relay her needs. Mobility and Gait Pt was MOD I with her walker since her sx. Activities of Daily Living and IADL's Pt was MOD I for ADLs and assists with IADLs. Social History Household Members spouse Living Arrangements House Number of Floors (Floors) One Floor Number of Stairs To Enter/Railing? No steps Home Environment High Toilet,Walk in Shower, Built-In Shower Seat Home Equipment Front Wheel Walker,Straight Cane,Manual Wheelchair,Hand Held Shower,Telephone Answerer,Grab Bars In Shower Employment Status Retired Additional Social History Comment Pt lives with her in an independent living facility on [facility]. M2 OT-IP Current Condition Start: 07/05/20 11:51 Freq: Status: Active Protocol: Document 07/05/20 11:51 CGR (Rec: 07/05/20 12:12 CGR [id number]) Occupational Therapy Current Condition Current Condition Evaluation Date 07/05/20 Treatment Diagnosis I&D fo the R hip after 06/09 R anterior hip Diagnosis Onset Date 07/04/20 Post Operative Precautions Anterior Hip Precautions No Hip Extension,No Hip External Rotation Weight Bearing Status Weight Bearing Status Weight Bear as Tolerated M3 OT- IP Subjective and Pain Start: 07/05/20 11:51 Freq: Status: Active Protocol: Document 07/05/20 11:51 CGR (Rec: 07/05/20 12:12 CGR [id number]) OT- Subjective Occupational Therapy Visit Type Type Initial Evaluation Visit Start Time 11:32 Visit Stop Time 11:46 Total Visit Minutes 14 OT Pain Assessment Pain When Pain Assessed At Rest Location Left sciatic Intensity 5 Scale Used Numeric (0 - 10) Management Techniques Apply Cold,Distraction, Modification of Treatment,Re- positioning Right Hip Intensity 4 Scale Used Numeric (0 - 10) Management Techniques Apply Cold,Distraction, Modification of Treatment,Re- positioning M4 OT- IP ADL's Start: 07/05/20 11:51 Freq: Status: Active Protocol: Document 07/05/20 11:51 CGR (Rec: 07/05/20 12:12 CGR [id number]) OT [id number] General Evaluation Self-Feeding Ability Independent Comments OT Self-Feeding Comments Lunch OT ADL-Grooming General Evaluation Grooming Ability Standby Assistance Areas Needing Assistance Combing/Brushing Hair,Face Washing Comments OT Grooming Comments Standing at sink OT ADL-Oral Care General Eval Oral Care Ability Standby Assistance Areas of Assistance Brushing Teeth Comments Oral Care Comments standing at sink OT ADL-Dressing General Eval Lower Body Dressing Ability Total Assistance Areas Needing Assistance Socks Comments OT Dressing Comments total assist OT ADL-Toileting Comments OT Toileting Comments Not performed OT ADL-Bathing Comments OT Bathing Comments Not performed M5 OT- IP IADL's Start: 07/05/20 11:51 Freq: Status: Active Protocol: Document 07/05/20 11:51 CGR (Rec: 07/05/20 12:12 CGR [id number]) OT-Instrumental Activities of Daily Living Deficits IADL Deficits Identified No Deficits Home Safety Awareness Awareness of Need for Assistance at Home Good Awareness Ability to Problem Solve Emergency Able to Problem Solve Situations Medication Management Medication Management Caregiver Administers Money Management Money Management Caregiver Provides Assistance Meal Preparation Meal Preparation Caregiver Provides Assist Screen Room Operator Screen Room Operator Caregiver Provides Assist Driving Driving Comments Pt does not drive M6 OT- IP Functional Cognition Start: 07/05/20 11:51 Freq: Status: Active Protocol: Document 07/05/20 11:51 CGR (Rec: 07/05/20 12:12 CGR [id number]) Cognitive Factors Limiting Selfcare Function Cognitive Ability Level of Alertness Alert Patient Orientation Name,Age,Birthday,Month,Date, Year,Day of Week,Place, Situation Attention Span Ability Capable of Focused Attention, Capable of Sustained Attention Ability to Follow Commands Able to Follow One Step Commands with Increased Time, Able to Follow One Step Commands with Repetition OT- Vision and Hearing OT- Hearing Assessment OT- Hearing Assessment WFL OT- Vision Assessment Vision History Cataracts Visual Acuity Glasses For Reading Visual Attentiveness WFL Occular Pursuits WFL Visual Convergence Impaired M7 OT- IP Mobility and Balance Start: 07/05/20 11:51 Freq: Status: Active Protocol: Document 07/05/20 11:51 CGR (Rec: 07/05/20 12:12 CGR [id number]) OT-Transfer Assessment Sit to and From Stand Sit to and from Stand Contact Guard Assistance Transfers Transfer Ability Contact Guard Assistance Technique Transfer Destination Chair Transfer Technique Stand Step Pivot Devices Transfer Assistive Devices Gait Belt,Front Wheeled Walker Comments Mobility Comments ambulated to sink OT- Balance Assessment Sitting Balance and Reactions Static Sitting Balance Ability Good Dynamic Sitting Balance Ability Fair M8 OT- IP Objective Assessments Start: 07/05/20 11:51 Freq: Status: Active Protocol: Document 07/05/20 11:51 CGR (Rec: 07/05/20 12:12 CGR [id number]) OT Gross Range of Motion Upper Extremity Range of Motion Assessment Within Functional Limits OT Strength Upper Extremity Strength Assessment Within Functional Limits Comments Strength Comments 4+/5 OT- Coordination Assessment Upper Extremity Finger to Nose Test Within Functional Limits Finger Tapping Test Within Functional Limits OT-Muscle Tone Assessment Muscle Tone WNL Yes OT Sensation Assessment Edema Edema Absent M9 OT- IP Assessment and Plan Start: 07/05/20 11:51 Freq: Status: Active Protocol: Document 07/05/20 11:51 CGR (Rec: 07/05/20 12:12 CGR [id number]) OT Summary Assessment and Plan Potential Rehabilitation Potential Good Analytic Complexity at Evaluation Moderate Summary OT Impairments Pain,Balance,Functional Cognition,Functional Mobility, Grooming,Dressing,Toileting, Bathing,Toilet Transfers, Shower Transfers,Activity Tolerance Progress Towards Goals Slow Progress due to Pain,Slow Progress due to Medical Issues Assessment Summary Pt presents as a moderate complexity evaluation s/p R hip I&D with 06/09/20 R hip anterior replacement. Pt is progressing well but has memory deficits. Pt will benefit from discharge home with husbands assist. Pt has all necessary equipment. Goals Grooming Goal Independent Dressing Goal Independent Toileting Goal Independent Bathing Goal Independent Toilet Transfer Goal Independent Shower Transfer Goal Independent Days to Meet Goals 10 Frequency of Treatment Frequency Of Treatment Once a Day Treatment Plan OT Treatment Plan ADL Training,Functional Cognition Training,Functional Mobility,Patient/Family Education,Discharge Planning Other Treatment Recommendations and Next shower Treatment Focus Discharge Recommendations OT Discharge Recommendations Home with 03/01 Assist Transportation Needs at Discharge Private Vehicle
[2020-07-05 12:37] VITALS: BP 103/44; PULSE 80; RESP 18; TEMP 37; O2SAT 93
--- NOTE | 2020-07-05 12:58 | DI.RAD.S_ITS ---
PROCEDURE: XR CHEST FOR PICC 1V INDICATIONS: CHECK PICC PLACEMENT COMPARISON: [facility], CR, XR CHEST 1V, 08/27/2019, 12:41. FINDINGS: PICC was placed by the intravenous therapy team from the right side. Fluoroscopic spot film demonstrates the tip of PICC projecting to the area of superior cavoatrial junction IMPRESSION: Tip of PICC projects to the area of superior cavoatrial junction Dictated by: Andrés Meadows D.O. on 07/05/2020 at 12:32 Approved by: Andrés Meadows D.O. on 07/05/2020 at 12:33
--- NOTE | 2020-07-05 13:41 | PT.IPTN ---
Surgery Performed Operation Date: 07/04/20 15:00 Actual Procedures p I&D Head and Liner Exchange - Jaret Sanz MD Physical Therapy Treatment Note M2 PT-IP Current Condition Start: 07/05/20 13:22 Freq: NEEDED Status: Active Protocol: Document 07/05/20 10:41 AB (Rec: 07/05/20 13:34 AB [id number]) Physical Therapy Current Condition Current Condition Evaluation Date 07/05/20 Treatment Diagnosis RTHA anterior I&D; difficulty in walking Onset Date 07/04/20 Precautions Anterior Hip Precautions No Hip Extension,No Hip External Rotation Weight Bearing Status Weight Bearing Status Weight Bear as Tolerated Allowed Weight Bearing Amount (enter % RLE WBAT or #) (%) M3 PT-IP Subjective Start: 07/05/20 13:22 Freq: NEEDED Status: Active Protocol: Document 07/05/20 13:16 KS (Rec: 07/05/20 14:19 KS [id number]) Subjective Physical Therapy Visit Type Type Treatment Note Visit Start Time 13:16 Visit Stop Time 13:41 Total Visit Minutes 25 Number of MOTOR EXPRESS CLERK Visits 1 Physical Therapy Visit Comments Patient Comments pt is agreeable to do PT; requested to use the toilet Therapy Pain Assessment Pain When Pain Assessed During Mobility Pain Present Pain Present Pain Reported Location Right Hip Intensity 5 Scale Used Numeric (0 - 10) Pain Management Techniques Distraction,Re-positioning, Timing of Activity with Medications M4 PT-IP Mobility and Gait Start: 07/05/20 13:22 Freq: NEEDED Status: Active Protocol: Document 07/05/20 13:16 KS (Rec: 07/05/20 14:19 KS [id number]) PT-Bed Mobility Assessment Supine to Sit Supine to Sit Standby Assistance,1 Person Assistance,Head of Bed Elevated Sit to Supine Sit to Supine Standby Assistance,Head of Bed Elevated Scooting Scooting to Edge of Bed Standby Assistance Scooting Up and Down in Bed Standby Assistance PT-Transfer Assessment Sit to and From Stand Sit to and from Stand Standby Assistance,1 Person Assistance,Use of Upper Extremities Equipment Transfer Assistive Device Gait Belt,Front Wheeled Walker Orthotic/Prosthetic Devices or Brace: No Transfers Transfer Destination Bed,Toilet Transfer Technique ambulated using FWW Transfer Ability Level of Assist Standby Assistance,Contact Guard Assistance,1 Person Assistance,Use of Upper Extremities Comments Mobility Comments Patient in bed upon arrival from therapy and agreeable to ambulate. Pt able to recall 3/ 3 precautions. Pt sup<>sit SBA w/ HOB slightly elevated and SBA for scooting to EOB. Once EOB, pt sit<>Stand SBA then ambulated to bathroom CGA. Patient then ambulated additional ~100 ft w/ FWW SBA to CGA w/ FWW w/ min cues to avoid hip hyperextension. Pt demonstrated good use of FWW and states her or daughter will be able to obtain one from home. Pt returned to room abd bed SBA and was able to scoot up in bed SBA. Pt left in bed w/ all needs in reach. Gait Assessment Gait Gait Assistance Required: Standby Assistance,Contact Guard Assist,1 Person Assist Distance (Feet) 100 Able to Maintain Weight Bearing Status Yes During Gait Assistive Devices Assistive Device Gait Belt,Front Wheeled Walker Orthotic/Prosthetic Devices or Brace: No Gait Deviations General Gait Pattern Antalgic,Decreased Stride Length,Decreased Feet Clearance Factors Limiting Gait Function Factors Limiting Gait Function Decreased Activity Tolerance, Decreased Strength,Difficulty Following Directions,Limited Range of Motion,Pain,Poor Balance,Poor Safety Awareness Comments Gait Comments Pt ambulated ~100 ft w/ FWW w/ min cues to avoid hip hyperextension. No LOB, good use of FWW. Stair Climbing Assessment Comments Stair Climbing Comments Pt states no stairs at home PT-Balance Assessment Sitting Balance and Reactions Static Sitting Balance Ability Good Dynamic Sitting Balance Ability Good Standing Balance and Reactions Static Standing Balance Ability Good Dynamic Standing Balance Ability Fair Device Used FWW M5 PT-IP Objective Assessments Start: 07/05/20 13:22 Freq: NEEDED Status: Active Protocol: Document 07/05/20 10:41 AB (Rec: 07/05/20 13:34 AB [id number]) Orientation Orientation/Cognition Level of Alertness Alert Orientation Name Language Function Ability Hard of Hearing Safety Awareness Decreased Safety Awareness Memory Description Short Term Impaired Strength Lower Extremity Strength Assessment Bilaterally Impaired Hip 3+/5 Knee 4-/5 Muscle Tone Muscle Tone WNL Yes M6 PT-IP Treatment Start: 07/05/20 13:22 Freq: NEEDED Status: Active Protocol: Document 07/05/20 13:16 KS (Rec: 07/05/20 14:19 KS [id number]) Physical Therapy Treatment Education Education Provided Precautions,Weight Bearing Status,Post-Op Packet,Safety M7 PT-IP Assessment and Plan Start: 07/05/20 13:22 Freq: NEEDED Status: Active Protocol: Document 07/05/20 13:16 KS (Rec: 07/05/20 14:19 KS [id number]) PT Summary Assessment and Plan Potential Rehabilitation Potential Good Status of Condition at Evaluation Evolving Summary Impairments Pain,ROM,Strength,Balance, Coordination,Sensation,Tone, Cognition,Bed Mobility, Transfers,Gait,Activity Tolerance Progress Towards Goals Progressing Toward Goals Assessment Summary Pt SBA for bed mobility, SBA to CGA for transfers and ambulation. Pt able to tolerate ~100 ft ambulation w/ FWW w/ cues to avoid hip hyperextension. Able to recall 3/3 precautions. Pt confirmed no stairs at home and able to obtain FWW prior to d/c. Pt will benefit from HHPT to improve strength, ambulation, and ROM. Goals Bed Mobility Goal Independent Transfer Goal Independent,Front Wheeled Walker Gait Goal Independent,Front Wheel Walker Gait Distance 150 Days to Meet Goals 5 Frequency of Treatment Frequency Of Treatment Twice a Day Treatment Plan Physical Therapy Treatment Plan Bed Mobility Training,Transfer Training,Gait Training, Therapeutic Exercise,Balance Retraining,Post Op Education, Discharge Planning,Hot or Cold Pack,Neuromuscular Re-ed, Coordination Retraining,Manual Therapy Recommendations To Nursing Amount of Assist Needed 1 Person Assist Discharge Recommendations PT Discharge Recommendations Home with Assistance,Home Health Transportation Needs at Discharge Private Vehicle
[2020-07-05] MEDS: VANCOMYCIN 1,000 MG/200 ML PIGGYBACK 200 MG IV (13:47)
--- NOTE | 2020-07-05 15:50 | PC.NURSE ---
Addendum entered by Melly Gallardo R.N. 07/05/20 16:38: Spoke with patient's daughter, patient does have hx of expressive aphasia and is within her baseline. Original Note: Shift note: At time of assessment patient had some difficulty finding words and expressive aphasia but would correct misspoken words when spoken correctly by this RN. Alert to self, place and situation but in a roundabout way. Anxious to get up and walk around and that she is inpatient at this time.
[2020-07-05 16:00] VITALS: BP 131/83; PULSE 83; RESP 16; TEMP 37.6; O2SAT 98
[2020-07-05] MEDS: SODIUM CHLORIDE 0.9% FLUSH 10 ML IV (16:44)
[2020-07-05] MEDS: ALPRAZolam 0.25 MG TABLET PO (20:01)
[2020-07-05] MEDS: MELATONIN 3 MG TABLET 6 MG PO (20:02)
[2020-07-05 20:51] VITALS: BP 138/68; PULSE 87; RESP 16; TEMP 37.4; O2SAT 96
[2020-07-06] VITALS (8 sets, daily range): BP systolic 113–141; BP diastolic 39–64; PULSE 68–91; RESP 15–18; TEMP 36.3–36.8; O2SAT 95–99
[2020-07-06] MEDS: IBUPROFEN 400 MG TABLET PO ×6 (00:02→20:09)
[2020-07-06] MEDS: CEFAZOLIN 2 GM/100 ML FROZ.PIGGY IV ×4 (00:03→23:41)
--- NOTE | 2020-07-06 01:33 | PC.NURSE ---
Addendum entered by Mirella Tinoco R.N. 07/06/20 04:32: Pt up frequently to toilet, she states that frequent urination is her baseline. Original Note: Pt c/o L hip and leg sciatic pain that is chronic for her. She benefits from low back and hip massage as well as walking and changing position to recliner chair.
[2020-07-06] MEDS: OXYCODONE IR 5 MG TABLET PO ×5 (02:13→23:15)
[2020-07-06] MEDS: LEVOTHYROXINE 25 MCG TABLET PO (05:11)
[2020-07-06] MEDS: LIOTHYRONINE 25 MCG TABLET PO (05:11)
[2020-07-06] MEDS: polyethylene glycoL 3350 17 GM POWD.PACK PO ×2 (07:48→23:50)
[2020-07-06] MEDS: VANCOMYCIN 1,000 MG/200 ML PIGGYBACK 200 MG IV (08:32)
[2020-07-06] MEDS: FUROSEMIDE 20 MG TABLET PO (08:34)
[2020-07-06] MEDS: ASPIRIN EC 81 MG TABLET PO ×2 (08:34→20:09)
[2020-07-06] MEDS: DULOXETINE 30 MG CAPSULE 60 MG PO ×2 (08:35→20:09)
[2020-07-06] MEDS: MAGNESIUM OXIDE 400 MG TABLET PO (08:35)
[2020-07-06] MEDS: POTASSIUM CHLORIDE 10 MEQ TAB PO (08:35)
[2020-07-06] MEDS: PRAMIPEXOLE 0.25 MG TABLET 0.125 MG PO ×2 (08:35→20:09)
[2020-07-06] MEDS: DOCUSATE 100 MG CAPSULE PO ×2 (08:35→20:09)
[2020-07-06] MEDS: ACETAMINOPHEN 325 MG TABLET 650 MG PO ×3 (08:38→20:09)
--- NOTE | 2020-07-06 10:13 | PM.PN.1 ---
Exam Vital Signs (past 8 hours): - 07/06/20 02:24 07/06/20 05:10 07/06/20 08:17 Temperature 97.5 F L 98.3 F Pulse Rate 91 H 77 79 Respiratory Rate 17 15 Blood Pressure 141/62 H 130/57 L 114/39 L Pulse Oximetry 95 99 Oxygen Delivery Method Room Air Oxygen Flow Rate 0 Objective Labs Result Diagrams: 07/05/20 06:50 07/04/20 13:15 [facility] Medical History Actinic keratosis Arthritis Back disorder Breast cancer Expressive aphasia Hearing loss HTN (hypertension) Hyponatremia Hypothyroid Insomnia Lyme disease Migraine Rheumatic fever without heart involvement TIA (transient ischemic attack) Surgical History History of carpal tunnel repair History of hysterectomy History of lumbar laminectomy Hx of bilateral cataract extraction Hx of repair of left rotator cuff Hx of tonsillectomy Status post bunionectomy Status post hysterectomy Status post knee surgery Status post partial mastectomy Family History Father Stroke Grandfather Stroke Social History household members: spouse Smoking Status: Never smoker alcohol intake: current Assessment & Plan Assessment & Plan narrative: Patient is admitted after surgery. Patient is POD#2 s/p revision DUSTIN with suspicision of infection. Patient is receiving IV antibiotics pending final culture result. Patient has been stable and progressing with physical therapy. Patient is neurovascularly intact on exam. Patient has no signs or symptoms of DVT. Patient's dressing is clean dry and intact. Will plan to stay one more day continue PT/OT, will find final culture and discharge tomorrow with IV antibiotic therapy. This was discussed with the patient and her daughter and they understand.
--- NOTE | 2020-07-06 10:30 | PT.IPTN ---
Surgery Performed Operation Date: 07/04/20 15:00 Actual Procedures p I&D Head and Liner Exchange - Jaret Sanz MD Physical Therapy Treatment Note M2 PT-IP Current Condition Start: 07/05/20 13:22 Freq: NEEDED Status: Active Protocol: Document 07/05/20 10:41 AB (Rec: 07/05/20 13:34 AB [id number]) Physical Therapy Current Condition Current Condition Evaluation Date 07/05/20 Treatment Diagnosis RTHA anterior I&D; difficulty in walking Onset Date 07/04/20 Precautions Anterior Hip Precautions No Hip Extension,No Hip External Rotation Weight Bearing Status Weight Bearing Status Weight Bear as Tolerated Allowed Weight Bearing Amount (enter % RLE WBAT or #) (%) M3 PT-IP Subjective Start: 07/05/20 13:22 Freq: NEEDED Status: Active Protocol: Document 07/06/20 10:27 AW (Rec: 07/06/20 11:14 AW [id number]) Subjective Physical Therapy Visit Type Type Treatment Note Visit Start Time 10:02 Visit Stop Time 10:27 Total Visit Minutes 25 Notes Pt's daughter Joanne present throughout treatment Number of WAITER/WAITRESS SECOND CLASS Visits 0 Physical Therapy Visit Comments Patient Comments Pt is agreeable to do PT. My left leg hurts worse than my right. Therapy Pain Assessment Pain When Pain Assessed During Mobility Pain Present Pain Present Pain Reported Location Left sciatic Intensity 5 Scale Used Numeric (0 - 10) Pain Management Techniques Modification of Treatment,Re- positioning,Timing of Activity with Medications M4 PT-IP Mobility and Gait Start: 07/05/20 13:22 Freq: NEEDED Status: Active Protocol: Document 07/06/20 10:27 AW (Rec: 07/06/20 11:14 AW [id number]) PT-Bed Mobility Assessment Supine to Sit Supine to Sit Minimal Assistance,1 Person Assistance Sit to Supine Sit to Supine Contact Guard Assistance Scooting Scooting to Edge of Bed Standby Assistance Scooting Up and Down in Bed Standby Assistance PT-Transfer Assessment Sit to and From Stand Sit to and from Stand Standby Assistance,1 Person Assistance,Use of Upper Extremities Equipment Transfer Assistive Device Gait Belt,Front Wheeled Walker Orthotic/Prosthetic Devices or Brace: No Transfers Transfer Destination Bed,Chair Transfer Technique ambulated using FWW Transfer Ability Level of Assist Standby Assistance,Contact Guard Assistance,1 Person Assistance,Use of Upper Extremities Comments Mobility Comments Pt sitting up in chair upon PT arrival. She complained of L> R hip pain due to sciatica but agreed to mobilize. She stood from the chair SBA without the walker and had initial unsteadiness due to left hip pain. With FWW, she ambulated around the unit 200' SBA. On return to the room, pt attempted transfer to the bed but impulsively left the walker too soon with (+) LOB requiring CGA. Once sitting, pt completed sit to supine CGA . Pt decided to sit up on the chair, completing supine to sit with min A handhold from the front for transition to long sitting. Pt required cues not to scoot to R EOB and drop her RLE due to anterior hip precautions. She transferred to the chair CGA. PT cleared pt to ambulate in the halls with her daughter. Gait Assessment Gait Gait Assistance Required: Standby Assistance,1 Person Assist Distance (Feet) 200 Able to Maintain Weight Bearing Status Yes During Gait Assistive Devices Assistive Device Gait Belt,Front Wheeled Walker Orthotic/Prosthetic Devices or Brace: No Gait Deviations General Gait Pattern Antalgic,Decreased Stride Length,Decreased Feet Clearance Factors Limiting Gait Function Factors Limiting Gait Function Decreased Activity Tolerance, Decreased Strength,Limited Range of Motion,Pain,Poor Balance,Poor Safety Awareness Comments Gait Comments No LOB, safe use of FWW. Stair Climbing Assessment Comments Stair Climbing Comments Pt states no stairs at home PT-Balance Assessment Sitting Balance and Reactions Static Sitting Balance Ability Good Dynamic Sitting Balance Ability Good Standing Balance and Reactions Static Standing Balance Ability Good Dynamic Standing Balance Ability Good Device Used FWW M5 PT-IP Objective Assessments Start: 07/05/20 13:22 Freq: NEEDED Status: Active Protocol: Document 07/05/20 10:41 AB (Rec: 07/05/20 13:34 AB [id number]) Orientation Orientation/Cognition Level of Alertness Alert Orientation Name Language Function Ability Hard of Hearing Safety Awareness Decreased Safety Awareness Memory Description Short Term Impaired Strength Lower Extremity Strength Assessment Bilaterally Impaired Hip 3+/5 Knee 4-/5 Muscle Tone Muscle Tone WNL Yes M6 PT-IP Treatment Start: 07/05/20 13:22 Freq: NEEDED Status: Active Protocol: Document 07/06/20 10:27 AW (Rec: 07/06/20 11:14 AW [id number]) Physical Therapy Treatment Education Education Provided Precautions,Weight Bearing Status,Safety Other Treatments Other Treatment Performed PT instructed pt in LLE sciatic nerve glides in supine with pt and daughter demonstrating good understanding. PT also provided passive left hip internal rotation stretch and instructed pt in active stretch. Pt reported improved left leg symptoms after tx. M7 PT-IP Assessment and Plan Start: 07/05/20 13:22 Freq: NEEDED Status: Active Protocol: Document 07/06/20 10:27 AW (Rec: 07/06/20 11:14 AW [id number]) PT Summary Assessment and Plan Potential Rehabilitation Potential Good Status of Condition at Evaluation Stable Summary Impairments Pain,ROM,Strength,Balance, Coordination,Sensation,Tone, Cognition,Bed Mobility, Transfers,Gait,Activity Tolerance Progress Towards Goals Progressing Toward Goals Assessment Summary Pt with new PICC line able to progress safe mobility this date and benefits from education and active/passive left hip stretch for deep external rotators and active nerve glides. Pt will benefit from HHPT to improve strength, ambulation, and ROM. Goals Bed Mobility Goal Independent Transfer Goal Independent,Front Wheeled Walker Gait Goal Independent,Front Wheel Walker Gait Distance 150 Days to Meet Goals 4 Frequency of Treatment Frequency Of Treatment Twice a Day Treatment Plan Physical Therapy Treatment Plan Bed Mobility Training,Transfer Training,Gait Training, Therapeutic Exercise,Balance Retraining,Post Op Education, Discharge Planning,Hot or Cold Pack,Neuromuscular Re-ed, Coordination Retraining,Manual Therapy Recommendations To Nursing Amount of Assist Needed Standby Assistance,1 Person Assist Discharge Recommendations PT Discharge Recommendations Home with Assistance,Home Health Transportation Needs at Discharge Private Vehicle
--- NOTE | 2020-07-06 12:54 | CM.DANOTE ---
Addendum entered by Loraine Rashid LPN 07/06/20 13:02: Alert [facility] to this plan when they open on Tuesday. They will need resume HH orders Original Note: [place] back from pharmacist L[facility] today. She is continuing to work on authorization process with [facility] for the home IV antibiotic plan. (see yesterday's assessment note for details). Updated pt and gave her the [facility] brochure. She is up mobililzing will in the halls with PT. P: remains home with [facility] once auth is received and Dr. Sanz has confirmed d/c antibiotics with ID. Still waiting for cultures.
--- NOTE | 2020-07-06 14:08 | OT.IP.TRT ---
Current Diagnoses Infection and inflammatory reaction due to internal right hip prosthesis, initial encounter (07/04/20) Surgery Performed Operation Date: 07/04/20 15:00 Actual Procedures p I&D Head and Liner Exchange - Jaret Sanz MD Occupational Therapy Treatment Note M2 OT-IP Current Condition Start: 07/05/20 11:51 Freq: Status: Active Protocol: Document 07/05/20 11:51 CGR (Rec: 07/05/20 12:12 CGR [id number]) Occupational Therapy Current Condition Current Condition Evaluation Date 07/05/20 Treatment Diagnosis I&D fo the R hip after 06/09 R anterior hip Diagnosis Onset Date 07/04/20 Post Operative Precautions Anterior Hip Precautions No Hip Extension,No Hip External Rotation Weight Bearing Status Weight Bearing Status Weight Bear as Tolerated M3 OT- IP Subjective and Pain Start: 07/05/20 11:51 Freq: Status: Active Protocol: Document 07/06/20 13:59 RM (Rec: 07/06/20 14:08 RM [id number]) OT- Subjective Occupational Therapy Visit Type Type Treatment Note Visit Start Time 13:00 Visit Stop Time 13:40 Total Visit Minutes 40 Occupational Therapy Visit Comments Patient Comments Oh a shower would feel nice. Patient agreeable to OT treatment for ADL training with shower. Patient/Caregiver Goals Discharge home once IV care mngmt established. OT Pain Assessment Pain When Pain Assessed During Mobility Pain Present Pain Present Pain Reported Location Left sciatic Scale Used reports pain, but not rated compared to R hip sx site pain Right Hip Intensity 5 Scale Used Numeric (0 - 10) Pain Behaviors Facial Grimacing Management Techniques Timing of Activity with Medications M4 OT- IP ADL's Start: 07/05/20 11:51 Freq: Status: Active Protocol: Document 07/06/20 13:59 RM (Rec: 07/06/20 14:08 RM [id number]) OT ADL-Dressing General Eval Upper Body Dressing Ability Standby Assistance Lower Body Dressing Ability Minimal Assistance Areas Needing Assistance Retrieving/Set-up of Clothing, Socks OT ADL-Toileting General Evaluation Toileting Ability Standby Assistance Devices Toileting Assistive Devices Grab Bars OT ADL-Bathing Bathing Type Bathing Type Shower General Evaluation Bathing Ability Minimal Assistance Areas Needing Assistance Retrieving/Setting Up Items, Wash/Dry Back,Wash/Dry Lower Extremities Devices Bathing Equipment Hand Held Shower Sprayer, Shower Chair with Arms M5 OT- IP IADL's Start: 07/05/20 11:51 Freq: Status: Active Protocol: Document 07/05/20 11:51 CGR (Rec: 07/05/20 12:12 CGR [id number]) OT-Instrumental Activities of Daily Living Deficits IADL Deficits Identified No Deficits Home Safety Awareness Awareness of Need for Assistance at Home Good Awareness Ability to Problem Solve Emergency Able to Problem Solve Situations Medication Management Medication Management Caregiver Administers Money Management Money Management Caregiver Provides Assistance Meal Preparation Meal Preparation Caregiver Provides Assist Investments Manager Investments Manager Caregiver Provides Assist Driving Driving Comments Pt does not drive M6 OT- IP Functional Cognition Start: 07/05/20 11:51 Freq: Status: Active Protocol: Document 07/06/20 13:59 RM (Rec: 07/06/20 14:08 RM [id number]) Cognitive Factors Limiting Selfcare Function Cognitive Ability Level of Alertness Alert Attention Span Ability Capable of Focused Attention, Capable of Sustained Attention Ability to Follow Commands Able to Follow Multi-Step Commands Memory Description No Deficits Noted Safety Awareness No Deficits Noted Problem Solving Ability No deficits Noted OT- Vision and Hearing OT- Hearing Assessment OT- Hearing Assessment Hearing Impaired,Use of Hearing Aids OT- Vision Assessment Visual Acuity WFL M7 OT- IP Mobility and Balance Start: 07/05/20 11:51 Freq: Status: Active Protocol: Document 07/06/20 13:59 RM (Rec: 07/06/20 14:08 RM [id number]) OT- Bed Mobility Assessment Sit to Supine Sit to Supine Assist Independent OT-Transfer Assessment Sit to and From Stand Sit to and from Stand Standby Assistance Transfers Transfer Ability Standby Assistance Technique Transfer Destination Bed,Chair,Shower Stall,Toilet Devices Transfer Assistive Devices Gait Belt,Front Wheeled Walker OT- Gait Assessment Gait Gait Assistance Required: Standby Assistance Distance (Feet) 20 Assistive Devices Assistive Device Gait Belt,Front Wheeled Walker M8 OT- IP Objective Assessments Start: 07/05/20 11:51 Freq: Status: Active Protocol: Document 07/05/20 11:51 CGR (Rec: 07/05/20 12:12 CGR [id number]) OT Gross Range of Motion Upper Extremity Range of Motion Assessment Within Functional Limits OT Strength Upper Extremity Strength Assessment Within Functional Limits Comments Strength Comments 4+/5 OT- Coordination Assessment Upper Extremity Finger to Nose Test Within Functional Limits Finger Tapping Test Within Functional Limits OT-Muscle Tone Assessment Muscle Tone WNL Yes OT Sensation Assessment Edema Edema Absent M9 OT- IP Assessment and Plan Start: 07/05/20 11:51 Freq: Status: Active Protocol: Document 07/06/20 13:59 RM (Rec: 07/06/20 14:08 RM [id number]) OT Summary Assessment and Plan Potential Rehabilitation Potential Good Analytic Complexity at Evaluation Moderate Summary OT Impairments Pain,Balance,Functional Cognition,Functional Mobility, Grooming,Dressing,Toileting, Bathing,Toilet Transfers, Shower Transfers,Activity Tolerance Progress Towards Goals Progressing Toward Goals Assessment Summary Patient is an 85 year old female with good participation with ADL training. Ambulating in room with FWW SBA with transfers to chair, toilet, shower chair, and bed SBA. [place] for LB bathing and dressing. Anticipate ready for discharge home tomorrow with family support as needed. Goals Grooming Goal Independent Dressing Goal Independent Toileting Goal Independent Bathing Goal Independent Toilet Transfer Goal Independent Shower Transfer Goal Independent Days to Meet Goals 10 Frequency of Treatment Frequency Of Treatment Once a Day Treatment Plan OT Treatment Plan ADL Training,Functional Cognition Training,Functional Mobility,Patient/Family Education,Discharge Planning Other Treatment Recommendations and Next LB drsg with AE, mobility with Treatment Focus ADLs as tolerated Discharge Recommendations OT Discharge Recommendations Home with Assistance,Home with 03/01 Assist Transportation Needs at Discharge Private Vehicle
--- NOTE | 2020-07-06 14:38 | PT.IPTN ---
Current Diagnoses Infection and inflammatory reaction due to internal right hip prosthesis, initial encounter (07/04/20) Surgery Performed Operation Date: 07/04/20 15:00 Actual Procedures p I&D Head and Liner Exchange - Jaret Sanz MD Physical Therapy Treatment Note M2 PT-IP Current Condition Start: 07/05/20 13:22 Freq: NEEDED Status: Active Protocol: Document 07/05/20 10:41 AB (Rec: 07/05/20 13:34 AB [id number]) Physical Therapy Current Condition Current Condition Evaluation Date 07/05/20 Treatment Diagnosis RTHA anterior I&D; difficulty in walking Onset Date 07/04/20 Precautions Anterior Hip Precautions No Hip Extension,No Hip External Rotation Weight Bearing Status Weight Bearing Status Weight Bear as Tolerated Allowed Weight Bearing Amount (enter % RLE WBAT or #) (%) M3 PT-IP Subjective Start: 07/05/20 13:22 Freq: NEEDED Status: Active Protocol: Document 07/06/20 14:37 AW (Rec: 07/06/20 14:57 AW [id number]) Subjective Physical Therapy Visit Type Type Treatment Note Visit Start Time 14:12 Visit Stop Time 14:37 Total Visit Minutes 25 Number of NREMT Visits 0 Physical Therapy Visit Comments Patient Comments I've been doing my stretches and my daughter brought tennis balls. I think my left side is improving. Therapy Pain Assessment Pain When Pain Assessed During Mobility Pain Present Pain Present Pain Reported Location Left sciatic Intensity 5 Scale Used Numeric (0 - 10) Pain Management Techniques Modification of Treatment,Re- positioning,Timing of Activity with Medications Right Hip Intensity 4 Scale Used Numeric (0 - 10) Pain Management Techniques Distraction,Re-positioning, Timing of Activity with Medications M4 PT-IP Mobility and Gait Start: 07/05/20 13:22 Freq: NEEDED Status: Active Protocol: Document 07/06/20 14:37 AW (Rec: 07/06/20 14:57 AW [id number]) PT-Bed Mobility Assessment Supine to Sit Supine to Sit Contact Guard Assistance Sit to Supine Sit to Supine Contact Guard Assistance Scooting Scooting to Edge of Bed Standby Assistance Scooting Up and Down in Bed Standby Assistance PT-Transfer Assessment Sit to and From Stand Sit to and from Stand Standby Assistance Equipment Transfer Assistive Device Gait Belt,Front Wheeled Walker Orthotic/Prosthetic Devices or Brace: No Transfers Transfer Destination Bed Transfer Technique ambulated using FWW Transfer Ability Level of Assist Standby Assistance,Use of Upper Extremities Comments Mobility Comments Pt was lying in bed as PT arrived. After demonstrating self-stretch, pt sat up on the left side of the bed CGA and stood SBA using FWW. She ambulated 200 feet with FWW SBA with good balance and safe mechanics before returning to the room and completing sit to supine CGA. Pt agreed to complete supine exercises. Pt was left with call light and all needs within reach, bed alarm on for safety. Gait Assessment Gait Gait Assistance Required: Standby Assistance Distance (Feet) 200 Able to Maintain Weight Bearing Status Yes During Gait Assistive Devices Assistive Device Gait Belt,Front Wheeled Walker Orthotic/Prosthetic Devices or Brace: No Gait Deviations General Gait Pattern Antalgic,Decreased Stride Length,Decreased Feet Clearance,Flexed Trunk Factors Limiting Gait Function Factors Limiting Gait Function Decreased Activity Tolerance, Decreased Strength,Limited Range of Motion,Pain,Poor Balance,Poor Safety Awareness Comments Gait Comments No LOB, safe use of FWW. Stair Climbing Assessment Comments Stair Climbing Comments Pt states no stairs at home PT-Balance Assessment Sitting Balance and Reactions Static Sitting Balance Ability Good Dynamic Sitting Balance Ability Good Standing Balance and Reactions Static Standing Balance Ability Good Dynamic Standing Balance Ability Good Device Used FWW M5 PT-IP Objective Assessments Start: 07/05/20 13:22 Freq: NEEDED Status: Active Protocol: Document 07/05/20 10:41 AB (Rec: 07/05/20 13:34 AB [id number]) Orientation Orientation/Cognition Level of Alertness Alert Orientation Name Language Function Ability Hard of Hearing Safety Awareness Decreased Safety Awareness Memory Description Short Term Impaired Strength Lower Extremity Strength Assessment Bilaterally Impaired Hip 3+/5 Knee 4-/5 Muscle Tone Muscle Tone WNL Yes M6 PT-IP Treatment Start: 07/05/20 13:22 Freq: NEEDED Status: Active Protocol: Document 07/06/20 14:37 AW (Rec: 07/06/20 14:57 AW [id number]) Physical Therapy Treatment Exercises Exercises Gluteal Sets,Quad Sets,Heel Slides Education Education Provided Precautions,Weight Bearing Status,Safety Other Treatments Other Treatment Performed Provided passive stretch into IR left hip and instructed pt in self-mob using tennis balls for relief of LLE sciatic pain. M7 PT-IP Assessment and Plan Start: 07/05/20 13:22 Freq: NEEDED Status: Active Protocol: Document 07/06/20 14:37 AW (Rec: 07/06/20 14:57 AW [id number]) PT Summary Assessment and Plan Potential Rehabilitation Potential Good Status of Condition at Evaluation Stable Summary Impairments Pain,ROM,Strength,Balance, Coordination,Sensation,Tone, Cognition,Bed Mobility, Transfers,Gait,Activity Tolerance Progress Towards Goals Progressing Toward Goals Assessment Summary Pt is mobilizing well with less need for assist. She was safer with FWW at this meeting and did not attempt to abandon the walker during transfers. Pt will be safe for discharge home with assist and PT once medically cleared. Goals Bed Mobility Goal Independent Transfer Goal Independent,Front Wheeled Walker Gait Goal Independent,Front Wheel Walker Gait Distance 150 Days to Meet Goals 4 Frequency of Treatment Frequency Of Treatment Twice a Day Treatment Plan Physical Therapy Treatment Plan Bed Mobility Training,Transfer Training,Gait Training, Therapeutic Exercise,Balance Retraining,Post Op Education, Discharge Planning,Hot or Cold Pack,Neuromuscular Re-ed, Coordination Retraining,Manual Therapy Recommendations To Nursing Amount of Assist Needed Standby Assistance Discharge Recommendations PT Discharge Recommendations Home with Assistance,Home Health Transportation Needs at Discharge Private Vehicle
[2020-07-06] MEDS: SODIUM CHLORIDE 0.9% FLUSH 10 ML IV (16:00)
[2020-07-06] MEDS: MELATONIN 3 MG TABLET 6 MG PO (20:09)
[2020-07-06] MEDS: ALPRAZolam 0.25 MG TABLET PO (20:09)
[2020-07-07] MEDS: IBUPROFEN 400 MG TABLET PO ×6 (01:29→21:27)
[2020-07-07] MEDS: VANCOMYCIN TROUGH 1 REQUEST MISC (01:32)
[2020-07-07 02:23] LABS: Vancomycin Trough 11.5 ug/mL (10-20)
[2020-07-07] MEDS: VANCOMYCIN 1,000 MG/200 ML PIGGYBACK 200 MG IV ×2 (02:31→21:27)
[2020-07-07] MEDS: OXYCODONE IR 5 MG TABLET PO ×4 (02:33→21:36)
[2020-07-07] MEDS: LEVOTHYROXINE 25 MCG TABLET PO (05:00)
[2020-07-07] MEDS: LIOTHYRONINE 25 MCG TABLET PO (05:00)
[2020-07-07 05:55] VITALS: BP 121/64; PULSE 75; RESP 16; TEMP 36.1
[2020-07-07 07:17] VITALS: BP 144/62; PULSE 76; RESP 16; TEMP 36.1; O2SAT 97
[2020-07-07] MEDS: CEFAZOLIN 2 GM/100 ML FROZ.PIGGY IV ×3 (07:31→23:48)
[2020-07-07] MEDS: polyethylene glycoL 3350 17 GM POWD.PACK PO (08:09)
[2020-07-07] MEDS: PRAMIPEXOLE 0.25 MG TABLET 0.125 MG PO ×2 (08:10→21:28)
[2020-07-07] MEDS: POTASSIUM CHLORIDE 10 MEQ TAB PO (08:11)
[2020-07-07] MEDS: ASPIRIN EC 81 MG TABLET PO ×2 (08:11→21:28)
[2020-07-07] MEDS: DULOXETINE 30 MG CAPSULE 60 MG PO ×2 (08:11→21:28)
[2020-07-07] MEDS: MAGNESIUM OXIDE 400 MG TABLET PO (08:11)
[2020-07-07] MEDS: DOCUSATE 100 MG CAPSULE PO ×2 (08:11→21:27)
[2020-07-07] MEDS: ACETAMINOPHEN 325 MG TABLET 650 MG PO ×2 (08:11→21:28)
[2020-07-07] MEDS: FUROSEMIDE 20 MG TABLET PO (08:11)
--- NOTE | 2020-07-07 08:58 | CM.DPC ---
DCP Cont: Met with patient in her room. Daughter, Joanne, was also at bedside. Daughter voiced concerns, does not feel that the private caregiver, feels comfortable giving her her IV medications, not in her scope of practice. She also stated, I don't think that my dad can do it either. Let her and patient know that only other option is intermediate, which she does not want. Asked daughter if she can stay with patient for a while to assist. Joanne stated, I can stay with her a little while, but I really want her to come and stay with me in [place]. Encouraged her to stay with patient to establish dosing and teaching in her home. Let her and daughter know that [facility] does not come to the home daily for antibiotics, and that [facility] does not, but [facility] will do weekly lab draws and dressing changes. Contacted Phu at [employer] with update. He will contact daughter. Stated, it's possible for her to get the medications in [place], but will need to get mailing address, etc. It is not known which antibiotic that patient will be going home with as of yet. Daughter will also remain at bedside for when orthopedist comes in to discuss as well. P: DCP to continue to follow. Phu at [employer] will work on insurance authorization with her [employer], to see what patient's cost will be, but this will also depend upon which antibiotic she will go home on. [facility] can be resumed. Will contact them at discharge as well. Sofía Pro RN/Glass Cleaning Machine Tender
--- NOTE | 2020-07-07 10:07 | P.PN_ITS ---
Subjective Subjective Date Patient Seen: 07/07/20 Time Patient Seen: 10:07 Interval history: Patient having some posterior right hip pain which is [id number] she contributes it to ?sciatica?. Anterior hip pain is mild. Denies fever or chills. No nausea / vomiting. Exam Vital Signs (past 8 hours): - 07/07/20 05:55 07/07/20 07:17 Temperature 97.0 F L 97.0 F L Pulse Rate 75 76 Respiratory Rate 16 16 Blood Pressure 121/64 144/62 H Pulse Oximetry 97 Oxygen Delivery Method Room Air Oxygen Flow Rate 0 Narrative Exam Narrative: 85-year-old female resting comfortably in bed in no apparent distress. Scant drainage on the dressing. Otherwise dressing intact. Motor function is intact distal right lower extremity. Sensation grossly intact to light touch distal right lower extremity. Right leg is warm and dry. Objective Labs Result Diagrams: 07/05/20 06:50 07/04/20 13:15 Labs: Laboratory Results - last 24 hr 07/07/20 01:32 Vancomycin Trough 11.5 Gram Stain Final 07/04/20 No Organism Seen No organisms seen White blood cells Occasional WBC seen CELLULAR DEBRIS FROM TISSUE GRIND Aerobic Culture for wounds Final 07/07/20757 No growth. Anaerobic Culture Preliminary 07/06/20757 No growth. COMMENTS: Comment deep right hip tissue Procedure Result Verified Site Gram Stain Final 07/04/202151 No Organism Seen No organisms seen White blood cells Few mixed mono and poly WBCs CELLULAR DEBRIS FROM TISSUE GRIND Aerobic Culture for wounds Final 07/07/20758 No growth. Anaerobic Culture Preliminary 07/06/20757 No growth. COMMENTS: Comment right hip deep fluid Procedure Result Verified Site Gram Stain Final 07/04/202148 No Organism Seen No organisms seen White blood cells Occasional mono and poly WBCs Aerobic Culture for wounds Final 07/07/20758 No growth. Anaerobic Culture Preliminary 07/06/20757 No growth. COMMENTS: Comment superficial right hip fluid Procedure Result Verified Site Gram Stain Final 07/04/202148 No Organism Seen No organisms seen White blood cells Few mixed mono and poly WBCs Epithelial cells Occasional (0-1) Aerobic Culture for wounds Final 07/07/20758 No growth. Anaerobic Culture Preliminary 07/06/20757 No growth. [facility] Medical History Actinic keratosis Arthritis Back disorder Breast cancer Expressive aphasia Hearing loss HTN (hypertension) Hyponatremia Hypothyroid Insomnia Lyme disease Migraine Rheumatic fever without heart involvement TIA (transient ischemic attack) Surgical History History of carpal tunnel repair History of hysterectomy History of lumbar laminectomy Hx of bilateral cataract extraction Hx of repair of left rotator cuff Hx of tonsillectomy Status post bunionectomy Status post hysterectomy Status post knee surgery Status post partial mastectomy Family History Father Stroke Grandfather Stroke Social History household members: spouse Smoking Status: Never smoker alcohol intake: current Assessment & Plan Post-op Postoperative Procedures: Procedures Operation Date: 07/04/20 15:00 Actual Procedures Side Surgeon p I&D Head and Liner Exchange Jaret Sanz MD Patient status post irrigation debridement right anterior hip surgical site as well as head liner exchange. Continue Ancef and Vanco IV until cultures return, weight-bearing as tolerated right lower extremity. Aspirin 81 mg b.i.d. x6 weeks for DVT prophylaxis
--- NOTE | 2020-07-07 10:32 | OT.IP.TRT ---
Current Diagnoses Infection and inflammatory reaction due to internal right hip prosthesis, initial encounter (07/04/20) Surgery Performed Operation Date: 07/04/20 15:00 Actual Procedures p I&D Head and Liner Exchange - Jaret Sanz MD Occupational Therapy Treatment Note M2 OT-IP Current Condition Start: 07/05/20 11:51 Freq: Status: Active Protocol: Document 07/05/20 11:51 CGR (Rec: 07/05/20 12:12 CGR [id number]) Occupational Therapy Current Condition Current Condition Evaluation Date 07/05/20 Treatment Diagnosis I&D fo the R hip after 06/09 R anterior hip Diagnosis Onset Date 07/04/20 Post Operative Precautions Anterior Hip Precautions No Hip Extension,No Hip External Rotation Weight Bearing Status Weight Bearing Status Weight Bear as Tolerated M3 OT- IP Subjective and Pain Start: 07/05/20 11:51 Freq: Status: Active Protocol: Document 07/07/20 10:49 CGR (Rec: 07/07/20 11:02 CGR [id number]) OT- Subjective Occupational Therapy Visit Type Type Progress Note Visit Start Time 09:51 Visit Stop Time 10:32 Total Visit Minutes 41 Notes Pts daughter present at start of session and left the room for pt to shower OT Pain Assessment Pain When Pain Assessed At Rest Pain Present Pain Present Pain Reported Location Left sciatic Scale Used did not rate Pain Behaviors Facial Grimacing,Wincing Management Techniques Distraction,Modification of Treatment,Re-positioning Right Hip Scale Used did not rate Pain Behaviors Facial Grimacing,Wincing Management Techniques Distraction,Modification of Treatment,Re-positioning M4 OT- IP ADL's Start: 07/05/20 11:51 Freq: Status: Active Protocol: Document 07/07/20 10:49 CGR (Rec: 07/07/20 11:02 CGR [id number]) OT [id number] Comments OT Self-Feeding Comments Not meal time OT ADL-Grooming General Evaluation Grooming Ability Standby Assistance Areas Needing Assistance Combing/Brushing Hair Comments OT Grooming Comments standing at sink after shower OT ADL-Oral Care Comments Oral Care Comments Not performed OT ADL-Dressing General Eval Upper Body Dressing Ability Standby Assistance Lower Body Dressing Ability Moderate Assistance,Maximum Assistance Areas Needing Assistance Retrieving/Set-up of Clothing, Underpants/Brief,Socks Comments OT Dressing Comments Performed sitting in chair. Pt needs assist with donning socks but doffs with IND. Pt needs assist with threading brief but pulls from knees up and doffs prior to shower without assist. OT ADL-Toileting General Evaluation Toileting Ability Standby Assistance Comments OT Toileting Comments urination seated on toielt OT ADL-Bathing Bathing Type Bathing Type Shower General Evaluation Bathing Ability Minimal Assistance Areas Needing Assistance Retrieving/Setting Up Items, Wash/Dry Back,Wash/Dry Lower Extremities Devices Bathing Equipment Hand Held Shower Sprayer, Shower Chair with Arms,Grab Bars Comments OT Bathing Comments Pt needs VC for safety. M5 OT- IP IADL's Start: 07/05/20 11:51 Freq: Status: Active Protocol: Document 07/05/20 11:51 CGR (Rec: 07/05/20 12:12 CGR [id number]) OT-Instrumental Activities of Daily Living Deficits IADL Deficits Identified No Deficits Home Safety Awareness Awareness of Need for Assistance at Home Good Awareness Ability to Problem Solve Emergency Able to Problem Solve Situations Medication Management Medication Management Caregiver Administers Money Management Money Management Caregiver Provides Assistance Meal Preparation Meal Preparation Caregiver Provides Assist Audio Visual Specialist Audio Visual Specialist Caregiver Provides Assist Driving Driving Comments Pt does not drive M6 OT- IP Functional Cognition Start: 07/05/20 11:51 Freq: Status: Active Protocol: Document 07/06/20 13:59 RM (Rec: 07/06/20 14:08 RM [id number]) Cognitive Factors Limiting Selfcare Function Cognitive Ability Level of Alertness Alert Attention Span Ability Capable of Focused Attention, Capable of Sustained Attention Ability to Follow Commands Able to Follow Multi-Step Commands Memory Description No Deficits Noted Safety Awareness No Deficits Noted Problem Solving Ability No deficits Noted OT- Vision and Hearing OT- Hearing Assessment OT- Hearing Assessment Hearing Impaired,Use of Hearing Aids OT- Vision Assessment Visual Acuity WFL M7 OT- IP Mobility and Balance Start: 07/05/20 11:51 Freq: Status: Active Protocol: Document 07/07/20 10:49 CGR (Rec: 07/07/20 11:02 CGR [id number]) OT-Transfer Assessment Sit to and From Stand Sit to and from Stand Standby Assistance Transfers Transfer Ability Standby Assistance Technique Transfer Destination Bedside Commode,Chair,Shower Stall,Toilet Transfer Technique Stand Step Pivot Devices Transfer Assistive Devices Gait Belt,Front Wheeled Walker Comments Mobility Comments Pt ambulated around the room from chair to shower to chair to sink to chair. OT- Balance Assessment Sitting Balance and Reactions Static Sitting Balance Ability Good Dynamic Sitting Balance Ability Fair M8 OT- IP Objective Assessments Start: 07/05/20 11:51 Freq: Status: Active Protocol: Document 07/05/20 11:51 CGR (Rec: 07/05/20 12:12 CGR [id number]) OT Gross Range of Motion Upper Extremity Range of Motion Assessment Within Functional Limits OT Strength Upper Extremity Strength Assessment Within Functional Limits Comments Strength Comments 4+/5 OT- Coordination Assessment Upper Extremity Finger to Nose Test Within Functional Limits Finger Tapping Test Within Functional Limits OT-Muscle Tone Assessment Muscle Tone WNL Yes OT Sensation Assessment Edema Edema Absent M9 OT- IP Assessment and Plan Start: 07/05/20 11:51 Freq: Status: Active Protocol: Document 07/07/20 10:49 CGR (Rec: 07/07/20 11:02 CGR [id number]) OT Summary Assessment and Plan Potential Rehabilitation Potential Good Analytic Complexity at Evaluation Moderate Summary OT Impairments Pain,Balance,Functional Cognition,Functional Mobility, Grooming,Dressing,Toileting, Bathing,Toilet Transfers, Shower Transfers,Activity Tolerance Progress Towards Goals Progressing Toward Goals Assessment Summary Pt performed shower and had questions about infusions with PICC line. Pt will benefit from continued therapy services. Discharge plan is unsure if home with vs home with daughter to [place] depending on need for IV antibiotics. Will continue to follow. Goals Grooming Goal Independent Dressing Goal Independent Toileting Goal Independent Bathing Goal Independent Toilet Transfer Goal Independent Shower Transfer Goal Independent Days to Meet Goals 10 Frequency of Treatment Frequency Of Treatment Once a Day Treatment Plan OT Treatment Plan ADL Training,Functional Cognition Training,Functional Mobility,Patient/Family Education,Discharge Planning Other Treatment Recommendations and Next LB drsg with AE, mobility with Treatment Focus ADLs as tolerated Discharge Recommendations OT Discharge Recommendations Home with Assistance,Home with / Assist Transportation Needs at Discharge Private Vehicle
--- NOTE | 2020-07-07 10:52 | PC.NURSE ---
Day shift: Pt had a shower today. PICC dressing changed per protocol today 07/07 at 1045. Pt tolerated this well. Resting in chair. Aquacell had 1/2 dollar sized shadow drainage on proximal end. MD aware. VS WNL. RA 96%. Ambulated w/ FWW in halls w/ daughter this AM and tolerated that well. Denies any nausea or chest pain. Still reports pain 4-6/10 bilat hips. More pain in left hip than in right hip. Call light in reach. Makes needs known proper. Has not been impulsive. Daughter in room for support.
--- NOTE | 2020-07-07 11:26 | PT.IPTN ---
Current Diagnoses Infection and inflammatory reaction due to internal right hip prosthesis, initial encounter (07/04/20) Surgery Performed Operation Date: 07/04/20 15:00 Actual Procedures p I&D Head and Liner Exchange - Jaret Sanz MD Physical Therapy Treatment Note M2 PT-IP Current Condition Start: 07/05/20 13:22 Freq: NEEDED Status: Active Protocol: Document 07/05/20 10:41 AB (Rec: 07/05/20 13:34 AB [id number]) Physical Therapy Current Condition Current Condition Evaluation Date 07/05/20 Treatment Diagnosis RTHA anterior I&D; difficulty in walking Onset Date 07/04/20 Precautions Anterior Hip Precautions No Hip Extension,No Hip External Rotation Weight Bearing Status Weight Bearing Status Weight Bear as Tolerated Allowed Weight Bearing Amount (enter % RLE WBAT or #) (%) M3 PT-IP Subjective Start: 07/05/20 13:22 Freq: NEEDED Status: Active Protocol: Document 07/07/20 11:03 CLB (Rec: 07/07/20 11:52 CLB [id number]) Subjective Physical Therapy Visit Type Type Treatment Note Visit Start Time 11:03 Visit Stop Time 11:26 Total Visit Minutes 23 Number of PRODUCT BUILDER Visits 2 Physical Therapy Visit Comments Patient Comments Pt willing to participate therapy. Therapy Pain Assessment Pain When Pain Assessed During Mobility Pain Present Pain Present Pain Reported Location Right Hip Intensity 4 Scale Used Numeric (0 - 10) Pain Management Techniques Distraction,Re-positioning, Timing of Activity with Medications M4 PT-IP Mobility and Gait Start: 07/05/20 13:22 Freq: NEEDED Status: Active Protocol: Document 07/07/20 11:03 CLB (Rec: 07/07/20 11:52 CLB [id number]) PT-Transfer Assessment Sit to and From Stand Sit to and from Stand Standby Assistance Equipment Transfer Assistive Device Gait Belt,Front Wheeled Walker Orthotic/Prosthetic Devices or Brace: No Transfers Transfer Destination Chair Transfer Ability Level of Assist Standby Assistance,Use of Upper Extremities Comments Mobility Comments Pt in chair is able to stand SBA and ambulated in [place] ~ 225ft w/FWW/SBA. Pt returned to chair SBA and performed seated ther ex, AP, QS and GS. Pt left in chair with daughter present all needs within reach. Gait Assessment Gait Gait Assistance Required: Standby Assistance Distance (Feet) 225 Able to Maintain Weight Bearing Status Yes During Gait Assistive Devices Assistive Device Gait Belt,Front Wheeled Walker Orthotic/Prosthetic Devices or Brace: No Gait Deviations General Gait Pattern Antalgic,Decreased Stride Length,Decreased Feet Clearance Factors Limiting Gait Function Factors Limiting Gait Function Decreased Activity Tolerance, Decreased Strength,Limited Range of Motion,Pain,Poor Balance,Poor Safety Awareness Comments Gait Comments SBA with gait using FWW. Stair Climbing Assessment Comments Stair Climbing Comments Pt states no stairs at home M5 PT-IP Objective Assessments Start: 07/05/20 13:22 Freq: NEEDED Status: Active Protocol: Document 07/05/20 10:41 AB (Rec: 07/05/20 13:34 AB [id number]) Orientation Orientation/Cognition Level of Alertness Alert Orientation Name Language Function Ability Hard of Hearing Safety Awareness Decreased Safety Awareness Memory Description Short Term Impaired Strength Lower Extremity Strength Assessment Bilaterally Impaired Hip 3+/5 Knee 4-/5 Muscle Tone Muscle Tone WNL Yes M6 PT-IP Treatment Start: 07/05/20 13:22 Freq: NEEDED Status: Active Protocol: Document 07/06/20 14:37 AW (Rec: 07/06/20 14:57 AW [id number]) Physical Therapy Treatment Exercises Exercises Gluteal Sets,Quad Sets,Heel Slides Education Education Provided Precautions,Weight Bearing Status,Safety Other Treatments Other Treatment Performed Provided passive stretch into IR left hip and instructed pt in self-mob using tennis balls for relief of LLE sciatic pain. M7 PT-IP Assessment and Plan Start: 07/05/20 13:22 Freq: NEEDED Status: Active Protocol: Document 07/07/20 11:03 CLB (Rec: 07/07/20 11:52 CLB [id number]) PT Summary Assessment and Plan Potential Rehabilitation Potential Good Status of Condition at Evaluation Stable Summary Impairments Pain,ROM,Strength,Balance, Coordination,Sensation,Tone, Cognition,Bed Mobility, Transfers,Gait,Activity Tolerance Progress Towards Goals Progressing Toward Goals Assessment Summary Pt is progressing with gait distance requiring SBA w/FWW with no LOB. Pt safe with sit< >stand SBA. Pt will benefit from HH to improve activity tolerance and strength. Goals Bed Mobility Goal Independent Transfer Goal Independent,Front Wheeled Walker Gait Goal Independent,Front Wheel Walker Gait Distance 150 Days to Meet Goals 4 Frequency of Treatment Frequency Of Treatment Twice a Day Treatment Plan Physical Therapy Treatment Plan Bed Mobility Training,Transfer Training,Gait Training, Therapeutic Exercise,Balance Retraining,Post Op Education, Discharge Planning,Hot or Cold Pack,Neuromuscular Re-ed, Coordination Retraining,Manual Therapy Recommendations To Nursing Amount of Assist Needed Standby Assistance Discharge Recommendations PT Discharge Recommendations Home with Assistance,Home Health Transportation Needs at Discharge Private Vehicle
[2020-07-07 11:35] VITALS: BP 128/47; PULSE 75; RESP 16; TEMP 36.1; O2SAT 98
--- NOTE | 2020-07-07 13:26 | PT-IP ANOTE ---
Pt daughter had just assisted pt back to bed and pt was sleeping. Will check back with pt in the morning.
--- NOTE | 2020-07-07 13:36 | PC.NURSE ---
Day shift: Pt requesting order for an oral probiotic for this hospital stay due to IV antibiotics. Pt's daughter is aware of this as well.
--- NOTE | 2020-07-07 14:13 | CM.DPC ---
DCP Cont: Met with patient's daughter, Joanne, in patient's room. Stated that she had spoken to Phu at [facility], and was feeling more confident about her going back to [facility]. She is researching medication administration with the pump that Phu was talking about. Plan is for patient to go back to [facility] and continue with her IV medication. At this time, it is still unknown as to which ABO she will be on. P: DCP to continue to follow. Will continue to work with Phu at [facility]. Also, will continue to update [facility]. Sofía Pro RN/Test Design Engineer
[2020-07-07 20:20] VITALS: BP 144/87; PULSE 97; RESP 19; TEMP 36.5; O2SAT 97
[2020-07-07] MEDS: MELATONIN 3 MG TABLET 6 MG PO (21:28)
[2020-07-07] MEDS: ALPRAZolam 0.25 MG TABLET PO (21:28)
[2020-07-07 23:26] VITALS: BP 125/54; PULSE 90; RESP 16; TEMP 36.8
[2020-07-08] MEDS: IBUPROFEN 400 MG TABLET PO ×6 (00:51→21:31)
[2020-07-08] MEDS: OXYCODONE IR 5 MG TABLET PO ×3 (01:41→21:30)
[2020-07-08 01:46] VITALS: O2SAT 98
--- NOTE | 2020-07-08 02:11 | PC.NURSE ---
Addendum entered by Lupe Manrique R.N. 07/08/20 06:12: Complains of sciatic pain in left lower back/buttock with severity of 5/10; medicated with Oxycodone. Original Note: patient is alert and oriented but with some expressive aphasia which daughter reports was present pre-op. SAXMAN and wears bilateral hearing aids. Breath sounds CTA with RA sat of 98%. HRR. Denies nausea. BT present and is passing gas; had BM earlier. Denies dysuria, frequency or urgency and gets up to bathroom with walker and SBA. Able to turn herself in bed. Aquacel dressing to right anterior hip with old drainage; no new drainage outside of previous markings. Denies pain initially but now complains of 5/10 lower back pain radiating down left leg so medicated with Oxycodone and provided with ice packs. Refusing to wear SCD's as they are irritating so reminded to ankle wave when awake. CMS is intact bilaterally. Fall risk score is moderate; patient not always calling for assistance so bed alarm is activated. Daughter rooming in.
[2020-07-08 05:40] VITALS: BP 118/75; PULSE 85; RESP 16; TEMP 36.3; O2SAT 97
[2020-07-08] MEDS: LIOTHYRONINE 25 MCG TABLET PO (06:09)
[2020-07-08] MEDS: LEVOTHYROXINE 25 MCG TABLET PO (06:09)
--- NOTE | 2020-07-08 07:26 | PM.PNPO.1 ---
Subjective Subjective Date Patient Seen: 07/08/20 Time Patient Seen: 07:33 Interval history: POD #4 s/p irrigation debridement right anterior hip surgical site as well as head liner exchange with Dr. Sazn. Patient's pain is well controlled. She has been mobilizing with PT well. No complaints today. Exam Vital Signs (past 8 hours): - 07/08/20 01:46 07/08/20 05:40 Temperature 97.4 F L Pulse Rate 85 Respiratory Rate 16 Blood Pressure 118/75 Pulse Oximetry 98 97 Oxygen Delivery Method Room Air Oxygen Flow Rate 0 Narrative Exam Narrative: Patient lying in bed in NAD. She is alert and oriented X3. Calves are soft, compressible, and nontender bilaterally. SILT throughout BLEs. Dressing on right hip does have shadow drainage down center. She is able to actively dorsiflex and plantarflex. Objective Labs Result Diagrams: 07/08/20 08:30 07/04/20 13:15 PFS Medical History Actinic keratosis Arthritis Back disorder Breast cancer Expressive aphasia Hearing loss HTN (hypertension) Hyponatremia Hypothyroid Insomnia Lyme disease Migraine Rheumatic fever without heart involvement TIA (transient ischemic attack) Surgical History History of carpal tunnel repair History of hysterectomy History of lumbar laminectomy Hx of bilateral cataract extraction Hx of repair of left rotator cuff Hx of tonsillectomy Status post bunionectomy Status post hysterectomy Status post knee surgery Status post partial mastectomy Family History Father Stroke Grandfather Stroke Social History household members: spouse Smoking Status: Never smoker alcohol intake: current Assessment & Plan Post-op Postoperative Procedures: Procedures Operation Date: 07/04/20 15:00 Actual Procedures Side Surgeon p I&D Head and Liner Exchange Jaret Sanz MD Patient will continue to mobilize with PT. She has anemia due to acute blood loss but no need for transfusion at this time. Still awaiting culture results. Micro was asked to hold plates for [address] Sanz is contacting ID today to discuss best broad spectrum IV abx coverage for the patient. Change dressing today. Possible DC either tonight or tomorrow once appropriate coverage has been finalized.
[2020-07-08 08:00] VITALS: BP 135/64; PULSE 90; RESP 16; TEMP 36.4
[2020-07-08] MEDS: PRAMIPEXOLE 0.25 MG TABLET 0.125 MG PO ×2 (08:37→21:30)
[2020-07-08] MEDS: ACETAMINOPHEN 325 MG TABLET 650 MG PO ×3 (08:38→21:31)
[2020-07-08] MEDS: DULOXETINE 30 MG CAPSULE 60 MG PO ×2 (08:38→21:31)
[2020-07-08] MEDS: MAGNESIUM OXIDE 400 MG TABLET PO (08:38)
[2020-07-08] MEDS: POTASSIUM CHLORIDE 10 MEQ TAB PO (08:38)
[2020-07-08] MEDS: LACTOBACILLUS ACIDOPHILUS TABLET 1 EACH PO ×3 (08:38→16:47)
[2020-07-08] MEDS: FUROSEMIDE 20 MG TABLET PO (08:38)
[2020-07-08] MEDS: DOCUSATE 100 MG CAPSULE PO ×2 (08:38→21:31)
[2020-07-08] MEDS: CEFAZOLIN 2 GM/100 ML FROZ.PIGGY IV (08:39)
[2020-07-08] MEDS: ASPIRIN EC 81 MG TABLET PO ×2 (08:39→21:30)
[2020-07-08] MEDS: SODIUM CHLORIDE 0.9% 250 ML 21 ML IV (08:40)
[2020-07-08 08:54] LABS: Hematocrit 25.4 % (36-46); Mean Corpuscular HGB Conc 31.7 % (30-36); Mean Corpuscular Hemoglobin 29.3 PG (26-34); Mean Corpuscular Volume 92.5 fL (80-100); Platelet Count 396 X10^3/uL (150-400); Red Blood Cell Count 2.75 X10^6/uL (4.0-5.2); Red Cell Distribution Width 14.4 % (11.6-14.8); White Blood Cell Count 7.5 X10^3/uL (4.5-11.0)
--- NOTE | 2020-07-08 11:28 | PT.IPTN ---
Current Diagnoses Infection and inflammatory reaction due to internal right hip prosthesis, initial encounter (07/04/20) Surgery Performed Operation Date: 07/04/20 15:00 Actual Procedures p I&D Head and Liner Exchange - Jaret Sanz MD Physical Therapy Treatment Note M2 PT-IP Current Condition Start: 07/05/20 13:22 Freq: NEEDED Status: Active Protocol: Document 07/05/20 10:41 AB (Rec: 07/05/20 13:34 AB [id number]) Physical Therapy Current Condition Current Condition Evaluation Date 07/05/20 Treatment Diagnosis RTHA anterior I&D; difficulty in walking Onset Date 07/04/20 Precautions Anterior Hip Precautions No Hip Extension,No Hip External Rotation Weight Bearing Status Weight Bearing Status Weight Bear as Tolerated Allowed Weight Bearing Amount (enter % RLE WBAT or #) (%) M3 PT-IP Subjective Start: 07/05/20 13:22 Freq: NEEDED Status: Active Protocol: Document 07/08/20 11:03 CLB (Rec: 07/08/20 14:29 CLB [id number]) Subjective Physical Therapy Visit Type Type Treatment Note Visit Start Time 11:03 Visit Stop Time 11:28 Total Visit Minutes 25 Notes Daughter present during tx. Physical Therapy Visit Comments Patient Comments Pt willing to participate therapy. Therapy Pain Assessment Pain When Pain Assessed During Mobility Pain Present Pain Present Pain Reported Location Left sciatic Intensity 3 Scale Used Numeric (0 - 10) Pain Management Techniques Modification of Treatment M4 PT-IP Mobility and Gait Start: 07/05/20 13:22 Freq: NEEDED Status: Active Protocol: Document 07/08/20 11:03 CLB (Rec: 07/08/20 14:29 CLB [id number]) PT-Bed Mobility Assessment Supine to Sit Supine to Sit Contact Guard Assistance Scooting Scooting to Edge of Bed Standby Assistance PT-Transfer Assessment Sit to and From Stand Sit to and from Stand Standby Assistance Equipment Transfer Assistive Device Gait Belt,Front Wheeled Walker Orthotic/Prosthetic Devices or Brace: No Transfers Transfer Destination Chair Transfer Ability Level of Assist Standby Assistance,Use of Upper Extremities Comments Mobility Comments Pt performed HS, QS and AP's in supine. Pt required CGA-SBA for bed mobility then SBA for sit-stand.Pt ambulated in [place] ~235ft w/FWW/SBA then sat in chair SBA, pt left in reclined chair with all needs within reach and daughter present. Gait Assessment Gait Gait Assistance Required: Standby Assistance Distance (Feet) 235 Able to Maintain Weight Bearing Status Yes During Gait Assistive Devices Assistive Device Gait Belt,Front Wheeled Walker Orthotic/Prosthetic Devices or Brace: No Gait Deviations General Gait Pattern Antalgic,Decreased Stride Length,Decreased Feet Clearance Factors Limiting Gait Function Factors Limiting Gait Function Decreased Activity Tolerance, Decreased Strength,Limited Range of Motion,Pain,Poor Balance,Poor Safety Awareness Comments Gait Comments SBA with gait using FWW. Stair Climbing Assessment Comments Stair Climbing Comments Pt states no stairs at home M5 PT-IP Objective Assessments Start: 07/05/20 13:22 Freq: NEEDED Status: Active Protocol: Document 07/05/20 10:41 AB (Rec: 07/05/20 13:34 AB [id number]) Orientation Orientation/Cognition Level of Alertness Alert Orientation Name Language Function Ability Hard of Hearing Safety Awareness Decreased Safety Awareness Memory Description Short Term Impaired Strength Lower Extremity Strength Assessment Bilaterally Impaired Hip 3+/5 Knee 4-/5 Muscle Tone Muscle Tone WNL Yes M6 PT-IP Treatment Start: 07/05/20 13:22 Freq: NEEDED Status: Active Protocol: Document 07/08/20 11:03 CLB (Rec: 07/08/20 14:29 CLB [id number]) Physical Therapy Treatment Exercises Exercises Ankle Pumps,Gluteal Sets,Quad Sets,Heel Slides M7 PT-IP Assessment and Plan Start: 07/05/20 13:22 Freq: NEEDED Status: Active Protocol: Document 07/08/20 11:03 CLB (Rec: 07/08/20 14:29 CLB [id number]) PT Summary Assessment and Plan Potential Rehabilitation Potential Good Status of Condition at Evaluation Stable Summary Impairments Pain,ROM,Strength,Balance, Coordination,Sensation,Tone, Cognition,Bed Mobility, Transfers,Gait,Activity Tolerance Progress Towards Goals Progressing Toward Goals Assessment Summary Pt doing well with all mobility but continues to c/o pain in left buttocks. Pt ambulated ~235ft w/FWW/SBA. Pt daughter will be able to assist pt when pt is medically stable to d/c home. Goals Bed Mobility Goal Independent Transfer Goal Independent,Front Wheeled Walker Gait Goal Independent,Front Wheel Walker Gait Distance 150 Days to Meet Goals 4 Frequency of Treatment Frequency Of Treatment Twice a Day Treatment Plan Physical Therapy Treatment Plan Bed Mobility Training,Transfer Training,Gait Training, Therapeutic Exercise,Balance Retraining,Post Op Education, Discharge Planning,Hot or Cold Pack,Neuromuscular Re-ed, Coordination Retraining,Manual Therapy Recommendations To Nursing Amount of Assist Needed Standby Assistance Discharge Recommendations PT Discharge Recommendations Home with Assistance,Home Health Transportation Needs at Discharge Private Vehicle
[2020-07-08] MEDS: ASCORBIC ACID 500 MG TABLET PO (12:20)
--- NOTE | 2020-07-08 13:01 | CM.DPC ---
Addendum entered by Sofía Pro R.N. 07/08/20 15:49: Have not yet seen [facility] arrive. Called Phu at [facility]. Indicated that they have to run these medications through intake, for authorization for her medication. Updated patient's daughter, and pm nurse, Maria Ines. Updated ortho, Fawn Arevalo, as well. Faxed [facility] DC summary, resumption orders, DC Summary showing labs, and med list. Patient has signed IMM. Addendum entered by Sofía Pro R.N. 07/08/20 15:23: Spoke to Dr. Sanz, orthopedist, and he stated that patient is going to be on two antibiotics. Daptomycin and Ceftriaxone. Stated that he had contacted infectious disease for suggestions. Stated that PAC will come over and complete prescriptions. Asked him if Phu at [facility] could call him, and he gave permission. Received prescriptions for antibiotics. Faxed them over to [facility]. Called Karl, pharmacist at [facility] and let him know. Also, updated Khadra at [facility]. Will fax over resumption order. [facility] has not yet shown up for teaching. Contacted Phu at [facility]. Stated, they are having to run this through intake, since Daptomycin is an expensive drug. Updated daughter. Will call [facility] back before this case maker leaves, to have them call the main nurses station with update on arrival time. Plan is for home this pm, with resumption of [facility], and [facility] with IV meds for 6 weeks. Original Note: DCP Cont: Checked in with patient and daughter, Joanne. Awaiting to find out what antibiotic that patient will be going home on. Daughter stated, if it's later in the day, we can take the 9:00pm ferry if need be. The challenge is getting the medication sooner, for [facility] needs to set up teaching here in the hospital. Called Dr. Sanz. Asked him if he was aware of what antibiotic that patient would be on. Stated, he is waiting to hear back from the infectious disease doctor, and hopefully should hear back soon. Updated him, that the plan is for patient to go home on IV antibiotics with [facility], and due to limited time factor for them mixing the medication and coming to the hospital for teaching, will need to know soon. Stated that he should know within the next half hour. Updated Phu at [facility]. Stated, if it's too much later, will not be able to do the hospital visit, but will stand by. Let him know that this category planner will update him today. P: DCP to continue to follow. Plan is for patient to go home, possibly today, with resumption of [facility] and [facility]. [facility] nurse will do weekly visits for PICC line dressing changes, and labs if needed. Sofía Pro RN/Plum Packer
--- NOTE | 2020-07-08 14:11 | OT.IPNOTE ---
Able to talk to pt's daughter about showering needs as pt in the hallway walking with the nursing aid. NO charge.
--- NOTE | 2020-07-08 14:30 | PT-IP ANOTE ---
Spoke with pt and daughter, pt scheduled to d/c this afternoon, pt had no further needs or questions for PT.
[2020-07-08] MEDS: CEFTRIAXONE 2 GM/50 ML FROZ.PIGGY IV (14:56)
[2020-07-08 15:24] LABS: Creatine Kinase 170 U/L (30-135)
--- NOTE | 2020-07-08 15:38 | PM.DS.1 ---
History of Present Illness History of Present Illness Date Patient Seen: 07/08/20 Time Patient Seen: 15:38 Chief complaint: Dr. Sanz sent, possible infection wants treated Narrative: Patient is a 85-year-old female 3 weeks status post right anterior total hip arthroplasty she has residual erythema about the incision which is worsened over last several days. Discharge Providers Provider Date of admission: 07/04/20 13:50 Discharge Date: 07/08/20 Primary care physician: MATTI Samano Consults: 07/04/20 13:05 Consult to General Surgery Stat Comment: Consulting Provider: Jaret Sanz Reason for consultation: admission Has provider been notified: Yes 07/04/20 19:09 Consult to Discharge Planning Routine Comment: Consult to Discharge Planning Routine Comment: Consult to Physical Therapy Evaluate & Treat Comment: Physician Instructions: Evaluate and Treat Consult to Physical Therapy Evaluate & Treat Comment: Physician Instructions: post op DUSTIN protocol Consult to Respiratory Therapy Evaluate & Treat Comment: Physician Instructions: Evaluate and treat Consult to Respiratory Therapy Evaluate & Treat Comment: Physician Instructions: Evaluate and treat 07/05/20 09:11 Consult to Occupational Therapy Evaluate & Treat Comment: Physician Instructions: Evaluate and treat 07/08/20 15:36 Consult to Home Health Routine Comment: Patient has PICC line, labs and dressing changes Reason For Exam: [facility] RN, P.T, O.T. Discharge provider: Janki Morales PA-C Summary Hospital Course Discharge Diagnosis: s/p I+D Actinic keratosis History of breast cancer Expressive aphasia Hearing loss Hypertension Hyponatremia Hypothyroid Lyme disease Migraines Rheumatic fever without heart involvement History of TIA Hospital Course: Larissa admitted for an irrigation debridement right anterior hip surgical site as well as head liner exchange with Dr. Sanz, and she consented to procedure. Patient had anemia due to acute blood loss from surgery. Not requiring transfusion. She mobilized with PT throughout her stay. PICC line was placed for IV abx. She was eating and voiding without difficulty or assistance. Dressing was changed prior to discharge. Status at Discharge Functional status at discharge: uses cane/walker Exam Vital Signs (past 8 hours): - 07/08/20 08:00 Temperature 97.6 F Pulse Rate 90 Respiratory Rate 16 Blood Pressure 135/64 Oxygen Delivery Method Room Air Oxygen Flow Rate 0 Narrative Exam Narrative: Exam unchanged from progress note today. Objective Labs Result Diagrams: 07/08/20 08:30 07/04/20 13:15 Labs: Laboratory Results - last 24 hr 07/08/20 07/08/20 08:30 15:00 WBC 7.5 RBC 2.75 L Hgb 8.0 L Hct 25.4 L MCV 92.5 MCH 29.3 MCHC 31.7 RDW 14.4 Plt Count 396 Total Creatine Kinase 170 H PFSH Medical History Actinic keratosis Arthritis Back disorder Breast cancer Expressive aphasia Hearing loss HTN (hypertension) Hyponatremia Hypothyroid Insomnia Lyme disease Migraine Rheumatic fever without heart involvement TIA (transient ischemic attack) Surgical History History of carpal tunnel repair History of hysterectomy History of lumbar laminectomy Hx of bilateral cataract extraction Hx of repair of left rotator cuff Hx of tonsillectomy Status post bunionectomy Status post hysterectomy Status post knee surgery Status post partial mastectomy Family History Father Stroke Grandfather Stroke Social History household members: spouse Smoking Status: Never smoker alcohol intake: current Discharge Assessment & Plan Assessment and Plan Plan of Treatment: Patient has not had cultures grow anything throughout her stay. Lab was advised to hold onto plates for 2 weeks. She will need a referral to ID at [facility]. She will need a CK, CBC with diff, CRP, and CMP twice a week. She was started on Daptomycin 8 mg/kg daily and Ceftriaxone 2 grams daily before her discharge. Baseline CK of 170 prior to discharge. Aspirin 81 mg b.i.d. x 6 weeks for DVT prophylaxis Discharge Plan Discharge Plan Patient Disposition: Home Discharge orders & Medications Prescriptions: New ascorbic acid (vitamin C) [Vitamin C] 500 mg Tablet 500 mg PO BID PRN (Reason: anemia) Qty: 30 RF: 0 daptomycin [Cubicin] 500 mg Recon Soln 540 mg IV Q24H Qty: 60 RF: 0 ceftriaxone in dextrose,iso-os 2 gram/50 mL Piggyback 2 g IV Q24H Qty: 24 RF: 0 docusate sodium [DOK] 100 mg Capsule 100 mg PO BID Qty: 20 RF: 0 oxycodone 5 mg Tablet 5 mg PO Q4-6H PRN (Reason: Pain, Moderate (4-6)) Qty: 50 RF: 0 Continued magnesium oxide 400 MG capsule 400 mg PO Q DAY Qty: 0 RF: 0 liothyronine 25 mcg Tablet 25 mcg PO DAILY RF: 0 alprazolam 0.25 mg Tablet 0.25 mg PO BEDTIME RF: 0 pramipexole 0.25 mg Tablet 0.125 mg PO BID RF: 0 furosemide 20 mg Tablet 20 mg PO DAILY RF: 0 buprenorphine-naloxone 2-0.5 mg Tablet, Sublingual 1 tab SUBLINGUAL DAILY RF: 0 duloxetine 60 mg Capsule,Delayed Release(Dr/Ec) 60 mg PO BID RF: 0 melatonin 5 mg Tablet 5 mg PO BEDTIME RF: 0 levothyroxine 13 mcg Capsule 25 mcg PO DAILY RF: 0 ibuprofen 200 mg Tablet 200 mg PO TID PRN (Reason: Pain) RF: 0 acetaminophen 500 mg Tablet 500 mg PO TID RF: 0 aspirin 81 mg Tablet,Delayed Release (Dr/Ec) 81 mg PO BID Qty: 40 RF: 0 docusate sodium [DOK] 100 mg Capsule 100 mg PO BID Qty: 40 RF: 0 gabapentin [Neurontin] 300 mg Capsule 300 mg PO TID PRN (Reason: radiculopathy) Qty: 90 RF: 0 potassium chloride 10 mEq tablet extended release 10 meq PO DAILY Qty: 30 RF: 0 Discontinued oxycodone 5 mg capsule 5 mg PO Q6H PRN (Reason: pain) Qty: 40 RF: 0 Follow up/Referrals: Agatha Green MD [Non-Staff] - 1 Week Sofia Downing ARNP [Primary Care Provider] - Jaret Sanz MD [Physician] - Diet/Activity/Treatments Other treatments: Will need CK, CBC with diff, CRP, CMP two times a week. Skin/Wound/Dressing Care Report to your healthcare provider any signs of infection, such as:: chills, fever and increased pain Dressing: leave in place until appointment Visit Report/Discharge Packet Instructions: Peripherally Inserted Central Catheter Discharge Data Primary Care Provider: Sofia Downing
--- NOTE | 2020-07-08 16:11 | CM.DPC ---
DCP Cont: Spoke to Phu at [facility] and he indicated that patient may most likely not be able to go today, they do not have insurance authorization, and is getting late in the day for someone to come and do teaching. He updated daughter as well. Updated avionics manager, Yaa, regarding situation, did let Fawn THOMAS know that there may be a chance that patient may not discharge tomorrow. Asked Phu at [facility] if they will be able to get authorization for tomorrow, and he stated, that they should. P: Plan is for home most likely tomorrow with [facility]. Have prescriptions already faxed, will need new DC order, and will need to update [facility]. Patient has already signed IMM. Sofía Pro RN/Chief Of Staff Doctor
[2020-07-08] MEDS: DAPTOMYCIN IV (16:33)
[2020-07-08] MEDS: SODIUM CHLORIDE 0.9% IV (16:33)
[2020-07-08 18:30] VITALS: BP 136/76; PULSE 102; RESP 16; O2SAT 100
[2020-07-08] MEDS: SODIUM CHLORIDE 0.9% FLUSH 10 ML IV (21:31)
[2020-07-08] MEDS: MELATONIN 3 MG TABLET 6 MG PO (21:31)
[2020-07-08 22:49] VITALS: BP 132/53; PULSE 85; RESP 17; TEMP 36.9; O2SAT 100
[2020-07-08 23:48] VITALS: BP 131/52; PULSE 87; RESP 16; TEMP 36.2
[2020-07-09] MEDS: IBUPROFEN 400 MG TABLET PO ×4 (00:24→12:25)
[2020-07-09] MEDS: diazePAM 5 MG TABLET PO (00:24)
[2020-07-09] MEDS: OXYCODONE IR 5 MG TABLET PO ×3 (01:53→13:36)
[2020-07-09] MEDS: HYDROMORPHONE 0.5 MG INJ 0.2 MG IV (03:10)
--- NOTE | 2020-07-09 04:07 | PC.NURSE ---
Pt having severe spasms in L leg r/t sciatica per pt report. Medicated, pain relieved somewhat. Pt requesting to place own OTC lidocaine patches on, advised against it, given ice and heat therapy to apply to leg as needed.
[2020-07-09 05:49] VITALS: BP 113/90; PULSE 87; RESP 16; TEMP 36.4
[2020-07-09] MEDS: LIOTHYRONINE 25 MCG TABLET PO (06:26)
[2020-07-09] MEDS: LEVOTHYROXINE 25 MCG TABLET PO (06:26)
--- NOTE | 2020-07-09 07:29 | PM.PNPO.1 ---
Subjective Subjective Date Patient Seen: 07/09/20 Time Patient Seen: 07:29 Interval history: Spoke with daughter who is in the room. Patient did not sleep well overnight. She is now sleeping and did not wake her. Daughter states they are waiting insurance authorization for [facility]. [facility] is scheduled for today at 10:00 a.m. to me daughter and patient prior to discharge. Exam Vital Signs (past 8 hours): - 07/08/20 23:48 07/09/20 05:49 Temperature 97.2 F L 97.5 F L Pulse Rate 87 87 Respiratory Rate 16 16 Blood Pressure 131/52 L 113/90 Oxygen Delivery Method Room Air Oxygen Flow Rate 0 Narrative Exam Narrative: Patient resting comfortably in bed in no apparent distress. Objective Labs Result Diagrams: 07/08/20 08:30 07/04/20 13:15 Labs: Laboratory Results - last 24 hr 07/08/20 07/08/20 08:30 15:00 WBC 7.5 RBC 2.75 L Hgb 8.0 L Hct 25.4 L MCV 92.5 MCH 29.3 MCHC 31.7 RDW 14.4 Plt Count 396 Total Creatine Kinase 170 H PFS Medical History Actinic keratosis Arthritis Back disorder Breast cancer Expressive aphasia Hearing loss HTN (hypertension) Hyponatremia Hypothyroid Insomnia Lyme disease Migraine Rheumatic fever without heart involvement TIA (transient ischemic attack) Surgical History History of carpal tunnel repair History of hysterectomy History of lumbar laminectomy Hx of bilateral cataract extraction Hx of repair of left rotator cuff Hx of tonsillectomy Status post bunionectomy Status post hysterectomy Status post knee surgery Status post partial mastectomy Family History Father Stroke Grandfather Stroke Social History household members: spouse Smoking Status: Never smoker alcohol intake: current Assessment & Plan Post-op Postoperative Procedures: Procedures Operation Date: 07/04/20 15:00 Actual Procedures Side Surgeon p I&D Head and Liner Exchange Jaret Sanz MD Plan is discharge home on IV medication for discharge summary. Will follow-up later this morning to talk with patient and complete exam.
--- NOTE | 2020-07-09 09:07 | CM.DPC ---
DCP Discharge Home with [facility] Per Ortho PA, will complete bedside assessment later this morning and place updated d/c order for today to home with [facility] and home infusion. JERICA spoke to Phu at [facility] and he confirms they received insurance auth late last night for pt's two IV-Abx and they will be bedside this morning around 1030 with pt and Dtr to complete bedside teaching. [facility] does not need any further documentation faxed, they have what they need to open pt to service. SW left msg with [facility] on pt d/c today back to [place] and previous DCP already faxed d/c summary, [facility] and medications to [facility] yesterday when pt thought to be discharging. JERICA met bedside with pt and adult Dtr and explained role and confirmed they are agreeable to above d/c plan and are aiming to catch the 1500 ferry back to [place] and Dtr will have pt's and her sibling on FaceTime for bedside teaching with [facility]. JERICA updated RN, business systems architect, and requested priority boarding pass from [facility] [place]/Dtr for discharge home today. Plan: Patient to d/c home via Dtr POV back to [place] on the [address] ferry with [facility] and [facility]. DESIRAE Marquez
--- NOTE | 2020-07-09 09:20 | PT.IPTN ---
Current Diagnoses Infection and inflammatory reaction due to internal right hip prosthesis, initial encounter (07/04/20) Surgery Performed Operation Date: 07/04/20 15:00 Actual Procedures p I&D Head and Liner Exchange - Jaret Sanz MD Physical Therapy Treatment Note M2 PT-IP Current Condition Start: 07/05/20 13:22 Freq: NEEDED Status: Active Protocol: Document 07/05/20 10:41 AB (Rec: 07/05/20 13:34 AB [id number]) Physical Therapy Current Condition Current Condition Evaluation Date 07/05/20 Treatment Diagnosis RTHA anterior I&D; difficulty in walking Onset Date 07/04/20 Precautions Anterior Hip Precautions No Hip Extension,No Hip External Rotation Weight Bearing Status Weight Bearing Status Weight Bear as Tolerated Allowed Weight Bearing Amount (enter % RLE WBAT or #) (%) M3 PT-IP Subjective Start: 07/05/20 13:22 Freq: NEEDED Status: Active Protocol: Document 07/09/20 08:55 SP (Rec: 07/09/20 12:32 SP [id number]) Subjective Physical Therapy Visit Type Type Treatment Note Visit Start Time 08:55 Visit Stop Time 09:20 Total Visit Minutes 25 Notes HAWA Rodriguez attended tx and provided w/c follow. Daughter was in room when arrived discussed L sciatic pain experienced previous evening and thinks pt is doing better. Pt woke up when nursing arrived to discuss IV meds already provided this avtar and Amara DC wind science and planning arrived to discuss DC plan for [employer] coming 1030ish am for education and plan for DC today with pt and daughter in agreement. Number of FISHING WORKER Visits 3 Physical Therapy Visit Comments Patient Comments Pt willing to participate with therapy. Patient Goals To return home with family to assist her on [place] in independent living facility. Therapy Pain Assessment Pain When Pain Assessed During Mobility Pain Present Pain Present Pain Reported Location Left sciatic Intensity 3 Scale Used Numeric (0 - 10) Description With Movement Pain Behaviors Facial Grimacing Pain Management Techniques Re-positioning,Timing of Activity with Medications M4 PT-IP Mobility and Gait Start: 07/05/20 13:22 Freq: NEEDED Status: Active Protocol: Document 07/09/20 08:55 SP (Rec: 07/09/20 12:32 SP [id number]) PT-Bed Mobility Assessment Supine to Sit Supine to Sit Standby Assistance Scooting Scooting to Edge of Bed Standby Assistance PT-Transfer Assessment Sit to and From Stand Sit to and from Stand Standby Assistance Equipment Transfer Assistive Device Gait Belt,Front Wheeled Walker Orthotic/Prosthetic Devices or Brace: No Transfers Transfer Destination Chair,Toilet Transfer Technique Pt ambulated using FWW Transfer Ability Level of Assist Standby Assistance,Use of Upper Extremities Comments Mobility Comments Pt was asleep when arrived, staff named above arrived during tx. Elevated supine>sit and scoot to EOB sBA. Sit> stand and ambulated to bathroom using FWW sBA, pt SPT in front toilet and FWW proper positioning, completed brief managed and slow grade to toilet using grab bar SBA, will have at home. Pt complete self hygiene in sitting, sit> stand SBA, ambulated further distance to sink approx 10 ft sBA using fWW to wash hands, stable with no UE support required. Pt ambulated further distance into hallway around nursing station with step over step patterning using FWW CGA with cuing for slow pacing to allow energy conservation, offered w/c follow in case needed rest break, declined and not needed, 1 stopped standing rest break during approx 150 ft. PT returned to chair in room with good fWW positioning and hand placement . Daughter provided bench cushion to support under feet and pt scooted back in chair BUE sBA for proper posture to eat breakfast. Pt had alarm donned, call light and all needs in reach before left. Gait Assessment Gait Gait Assistance Required: Standby Assistance Distance (Feet) 150 Able to Maintain Weight Bearing Status Yes During Gait Assistive Devices Assistive Device Gait Belt,Front Wheeled Walker Orthotic/Prosthetic Devices or Brace: No Gait Deviations General Gait Pattern Antalgic,Decreased Stride Length,Decreased Feet Clearance Factors Limiting Gait Function Factors Limiting Gait Function Decreased Activity Tolerance, Decreased Strength,Limited Range of Motion,Pain Comments Gait Comments sBA with gait using fWW. Stair Climbing Assessment Comments Stair Climbing Comments Pt states no stairs at home PT-Balance Assessment Sitting Balance and Reactions Static Sitting Balance Ability Good Dynamic Sitting Balance Ability Fair Standing Balance and Reactions Static Standing Balance Ability Good Dynamic Standing Balance Ability Good Device Used FWW M5 PT-IP Objective Assessments Start: 07/05/20 13:22 Freq: NEEDED Status: Active Protocol: Document 07/05/20 10:41 AB (Rec: 07/05/20 13:34 AB [id number]) Orientation Orientation/Cognition Level of Alertness Alert Orientation Name Language Function Ability Hard of Hearing Safety Awareness Decreased Safety Awareness Memory Description Short Term Impaired Strength Lower Extremity Strength Assessment Bilaterally Impaired Hip 3+/5 Knee 4-/5 Muscle Tone Muscle Tone WNL Yes M6 PT-IP Treatment Start: 07/05/20 13:22 Freq: NEEDED Status: Active Protocol: Document 07/09/20 08:55 SP (Rec: 07/09/20 12:32 SP [id number]) Physical Therapy Treatment Education Education Provided Precautions,Weight Bearing Status,Safety M7 PT-IP Assessment and Plan Start: 07/05/20 13:22 Freq: NEEDED Status: Active Protocol: Document 07/09/20 08:55 SP (Rec: 07/09/20 12:32 SP [id number]) PT Summary Assessment and Plan Potential Rehabilitation Potential Good Status of Condition at Evaluation Stable Summary Impairments Pain,ROM,Strength,Balance, Coordination,Sensation,Tone, Cognition,Bed Mobility, Transfers,Gait,Activity Tolerance Progress Towards Goals Progressing Toward Goals Assessment Summary Pt doing well with all mobility but continues to c/o low level 3/10 pain in left buttocks. Pt ambulated ~150ft w/FWW/SBA, decreased activity tolerance compared to yesterday during gait distance . Pt daughter will be able to assist pt when pt is medically cleared to d/c home. Goals Bed Mobility Goal Independent Transfer Goal Independent,Front Wheeled Walker Gait Goal Independent,Front Wheel Walker Gait Distance 150 Days to Meet Goals 4 Frequency of Treatment Frequency Of Treatment Twice a Day Treatment Plan Physical Therapy Treatment Plan Bed Mobility Training,Transfer Training,Gait Training, Therapeutic Exercise,Balance Retraining,Post Op Education, Discharge Planning,Hot or Cold Pack,Neuromuscular Re-ed, Coordination Retraining,Manual Therapy Other Recommendations and Next Treatment Gait, LE there ex. Focus Recommendations To Nursing Amount of Assist Needed 1 Person Assist Discharge Recommendations PT Discharge Recommendations Home with Assistance,Home Health Transportation Needs at Discharge Private Vehicle
[2020-07-09] MEDS: MAGNESIUM OXIDE 400 MG TABLET PO (09:25)
[2020-07-09] MEDS: ACETAMINOPHEN 325 MG TABLET 650 MG PO (09:25)
[2020-07-09] MEDS: DULOXETINE 30 MG CAPSULE 60 MG PO (09:25)
[2020-07-09] MEDS: DOCUSATE 100 MG CAPSULE PO (09:26)
[2020-07-09] MEDS: PRAMIPEXOLE 0.25 MG TABLET 0.125 MG PO (09:26)
[2020-07-09] MEDS: ASCORBIC ACID 500 MG TABLET PO (09:26)
[2020-07-09] MEDS: FUROSEMIDE 20 MG TABLET PO (09:26)
[2020-07-09] MEDS: POTASSIUM CHLORIDE 10 MEQ TAB PO (09:26)
[2020-07-09] MEDS: ASPIRIN EC 81 MG TABLET PO (09:28)
[2020-07-09] MEDS: LACTOBACILLUS ACIDOPHILUS TABLET 1 EACH PO ×2 (09:28→12:25)
--- NOTE | 2020-07-09 10:00 | OT.IPNOTE ---
Pt not available and working with [facility], pt to discharge later today.
[2020-07-09 12:24] VITALS: BP 135/65; PULSE 87; RESP 16; TEMP 36.9; O2SAT 100
--- NOTE | 2020-07-09 13:34 | PC.NURSE ---
Pt education given to pt and daughter. Discussed- IV antibiotic medication, IV therapy, PICC line education, opioid safety, s/s of stroke, s/s of infection, reasons to seek medical attention, activity and diet. Pt dressed with daughter's assistance, all belongings placed in personal bags. PICC line in place for at home infusions[place] Pt left via w/c by FRENCH DRAWER and daughter to POV.
== END 2020-07-09 14:07 | disposition home health service (06) | DRG 467 ==
LOC: ED 13:11 → AC 13:58
PROVIDERS: Physician Assistant Surgical; Admitting Provider Orthopaedic Surgery Adult Reconstructive Orthopaedic Surgery; Emergency Provider Emergency Medicine; Family Provider Family Medicine; PCP Nurse Practitioner Family; Referring Provider Orthopaedic Surgery Adult Reconstructive Orthopaedic Surgery; Visit Provider Orthopaedic Surgery Adult Reconstructive Orthopaedic Surgery
PROC: 0SP909Z Removal of Liner from Right Hip Joint, Open Approach (ICD-10-PCS; CPT 27130; principal; 2020-07-04 15:00)
DX: T84.51XA Infection and inflammatory reaction due to internal right hip prosthesis, initial encounter (principal); M96.842 Postprocedural seroma of a musculoskeletal structure following a musculoskeletal system procedure; D62 Acute posthemorrhagic anemia; Z85.3 Personal history of malignant neoplasm of breast; I10 Essential (primary) hypertension; E03.9 Hypothyroidism, unspecified; Z86.73 Personal history of transient ischemic attack (TIA), and cerebral infarction without residual deficits; Z20.822 Contact with and (suspected) exposure to COVID-19
CPT/HCPCS: 36415; 36573; 36592; 72170; 80053; 80202; 82550; 83605; 85025; 85027; 85651; 86140; 87070; 87075; 87176; 87205; 87635; 94760; 97110; 97116; 97162; 97166; 97530; 97535; 99281; 99283; C1776; C9803; J0690; J0696; J0878; J1100; J1170; J1642; J2270; J2405; J2704; J3010; J3410

== ENCOUNTER → 2020-08-01 19:26 | Outpatient (ROUT) | payer MEDICARE, SELFPAY ==
[2020-07-04 19:41] VITALS: BMI 25.7
[2020-08-01 19:49] LABS: Add Manual Diff / Slide Review NO; Basophils Absolute Auto 200 /uL (0-100); Basophils Percent Auto 1.6 % (0-2); Eosinophils Absolute Auto 300 /uL (0-450); Eosinophils Percent Auto 2.5 % (2-4); Hematocrit 31.8 % (36-46); Lymphocytes Absolute Auto 1200 /uL (1100-4500); Lymphocytes Percent Auto 11.8 % (25-40); Mean Corpuscular HGB Conc 31.5 % (30-36); Mean Corpuscular Volume 85.7 fL (80-100); Monocytes Absolute Auto 900 /uL (0-900); Monocytes Percent Auto 9.2 % (3-14); Neutrophils Absolute Auto 7700 /uL (1500-7000); Neutrophils Percent Auto 74.9 % (50-75); Platelet Count 537 X10^3/uL (150-400); Red Blood Cell Count 3.71 X10^6/uL (4.0-5.2); Red Cell Distribution Width 16.6 % (11.6-14.8); White Blood Cell Count 10.3 X10^3/uL (4.5-11.0)
[2020-08-01 19:54] LABS: Alanine Aminotransferase 19 IU/L (<35); Albumin 3.7 g/dL (3.5-5.0); Albumin Globulin Ratio 1.4 (1.0-2.8); Alkaline Phosphatase 122 U/L (38-126); Aspartate Aminotransferase 31 IU/L (14-36); BUN Creatinine Ratio 21.5 (6-22); Bilirubin Total 0.2 mg/dL (0.2-1.3); Blood Urea Nitrogen 20 mg/dL (7-17); Calcium 9.2 mg/dL (8.4-10.2); Carbon Dioxide 30 mmol/L (22-32); Chloride 100 mmol/L (98-107); Estimated Glomerular Filt Rate 57.4 mL/min (>60); Globulin 2.7 g/dL (1.7-4.1); Glucose 107 mg/dL (80-110); HEMOLYSIS < 15 (0-50); Potassium 4.4 mmol/L (3.4-5.1); Sodium 136 mmol/L (137-145); Total Protein 6.4 g/dL (6.3-8.2)
[2020-08-01 20:22] LABS: TSH w/ Reflex to FT4 1.68 uIU/mL (0.47-4.68)
== END ==
PROVIDERS: Family Provider Family Medicine; PCP Nurse Practitioner Family; Visit Provider Internal Medicine
DX: T81.49XA Infection following a procedure, other surgical site, initial encounter (principal); E03.9 Hypothyroidism, unspecified
CPT/HCPCS: 80053; 84443; 85025; 86140

== ENCOUNTER → 2021-03-24 16:20 | Outpatient (CLI) | payer MEDICARE, SELFPAY ==
[2020-07-04 19:41] VITALS: BMI 25.7
--- NOTE | 2021-03-24 | DI.MRI.S_ITS ---
PROCEDURE: MR LUMBAR SPINE WO CON INDICATIONS: Spinal stenosis, lumbar region with neurogenic cla TECHNIQUE: Noncontrast sagittal T1 spin echo and T2 fast echo, sagittal STIR, axial T1 and T2 fast spin echo through the lumbar spine. In cases with scoliosis, additional coronal T2 fast spin echo may be performed. COMPARISON: [facility], MR, MR LUMBAR SPINE WO/W CON, 10/30/2019, 12:34. FINDINGS: Image quality: This examination is limited by involuntary motion artifact. Alignment and Curvature: There is minimal retrolisthesis seen at T12-L1, L1-L2, L2-L3, and L3-L4. Mild anterolisthesis is seen at L4-L5. Mild levoconvex scoliotic curvature is noted. Bone Marrow: Marrow is of normal overall signal. No acute vertebral body compression fractures. Spinal Cord: Conus medullaris terminates at the L1 level. Visualized cord demonstrates normal signal and size. Paraspinous Soft Tissues: No paravertebral masses. T11-T12: At least moderate loss of disc height and disc signal can be seen. Mild generalized disc bulge is seen. Moderate bilateral neural foraminal narrowing is seen. Minimal central canal narrowing is seen. T12-L1: Moderate to severe loss of disc height and disc signal can be seen. Bridging endplate osteophytes are seen. At least moderate disc bulge is seen at this level. Moderate facet joint hypertrophy is seen. There is moderate to severe bilateral neural foraminal narrowing seen. There is a degree of compression seen upon the exiting nerve roots. Moderate central canal narrowing is seen. No significant change from the prior. L1-L2: Moderate to severe loss of disc height and disc signal can be seen. At least moderate disc bulge is seen, which is eccentric to the right. There is a central disc protrusion seen. Bridging endplate osteophytes are seen on the right. Moderate facet joint hypertrophy is seen. Associated hypertrophy of the ligamentum flavum can be seen. There is moderate to severe bilateral neural foraminal narrowing seen. There is a degree of compression seen upon the exiting nerve roots. At least moderate central canal narrowing is seen, as on series 5, image 13. When comparison is made with the prior images, these findings are similar. L2-L3: Moderate to severe loss of disc height and disc signal can be seen. At least moderate disc bulge is seen. There is a central disc protrusion. At least moderate facet hypertrophy is seen. Associated hypertrophy of the ligamentum flavum can be seen. At least moderate central canal narrowing is seen at this level. Compared to 2020, these imaging findings are similar. L3-L4: Moderate loss of disc height is seen. Loss of disc signal is seen. Moderate facet joint hypertrophy is seen. Interval left hemilaminectomy change can be seen. Moderate to severe bilateral neural foraminal narrowing can be seen. There is a degree of compression seen upon the exiting nerve roots. Mild central canal narrowing is seen. The degree of central canal narrowing is improved compared to 2020. L4-L5: Moderate loss of disc height is seen. Loss of disc signal is seen. Moderate disc bulge is seen, with a central disc protrusion. Moderate to prominent facet hypertrophy is seen at this level. There is moderate to severe bilateral neural foraminal narrowing seen, right worse than left. At least moderate central canal narrowing is seen at this level. No significant change from the prior. L5-S1: Mild loss of disc height is seen. Loss of disc signal is seen. Moderate disc bulge is seen, with a mild central disc protrusion. At least moderate facet hypertrophy is seen at this level. Moderate to severe bilateral neural foraminal narrowing can be seen. There is a degree of compression seen upon the exiting nerve roots. Moderate central canal narrowing is seen. Stable from the prior study. IMPRESSION: Interval L3-L4 left hemilaminectomy, with improvement in the degree of central canal narrowing at this level. Otherwise, the multiple levels of relatively prominent lumbar spine degenerative change are not significantly different from 2020. Several sites of significant neural foraminal narrowing can be seen, with associated exiting nerve root compression. Dictated by: Jay Manjarrez M.D. on 03/24/2021 at 16:36 Approved by: Jay Manjarrez M.D. on 03/24/2021 at 16:43
== END ==
PROVIDERS: PCP Internal Medicine; Referring Provider Family Medicine; Visit Provider Family Medicine
DX: M48.062 Spinal stenosis, lumbar region with neurogenic claudication (principal); M47.816 Spondylosis without myelopathy or radiculopathy, lumbar region; M47.817 Spondylosis without myelopathy or radiculopathy, lumbosacral region
CPT/HCPCS: 72148

== ENCOUNTER → 2021-04-14 11:15 | Outpatient (CLI) | payer MEDICARE, SELFPAY ==
[2020-07-04 19:41] VITALS: BMI 25.7
[2021-04-14 14:05] LABS: Add Manual Diff / Slide Review NO; Basophils Absolute Auto 0 /uL (0-100); Basophils Percent Auto 0.2 % (0-2); Eosinophils Absolute Auto 0 /uL (0-450); Eosinophils Percent Auto 0.4 % (2-4); Hematocrit 40.9 % (36-46); Hemoglobin 13.6 g/dL (12.0-16.0); Lymphocytes Absolute Auto 1300 /uL (1100-4500); Lymphocytes Percent Auto 11.7 % (25-40); Mean Corpuscular HGB Conc 33.3 % (30-36); Mean Corpuscular Hemoglobin 30.4 PG (26-34); Mean Corpuscular Volume 91.3 fL (80-100); Monocytes Absolute Auto 1200 /uL (0-900); Monocytes Percent Auto 10.8 % (3-14); Neutrophils Absolute Auto 8200 /uL (1500-7000); Neutrophils Percent Auto 76.9 % (50-75); Platelet Count 324 X10^3/uL (150-400); Red Blood Cell Count 4.47 X10^6/uL (4.0-5.2); Red Cell Distribution Width 14.4 % (11.6-14.8); White Blood Cell Count 10.7 X10^3/uL (4.5-11.0)
[2021-04-14 14:09] LABS: Alanine Aminotransferase 21 IU/L (<35); Albumin Globulin Ratio 1.6 (1.0-2.8); Alkaline Phosphatase 114 U/L (38-126); Aspartate Aminotransferase 43 IU/L (14-36); BUN Creatinine Ratio 22.7 (6-22); Bilirubin Total 0.8 mg/dL (0.2-1.3); Blood Urea Nitrogen 32 mg/dL (7-17); Carbon Dioxide 33 mmol/L (22-32); Chloride 91 mmol/L (98-107); Estimated Glomerular Filt Rate 35.4 mL/min (>60); Globulin 2.5 g/dL (1.7-4.1); Glucose 89 mg/dL (80-110); HEMOLYSIS < 15 (0-50); Potassium 4.2 mmol/L (3.4-5.1); Sodium 133 mmol/L (137-145); Total Protein 6.5 g/dL (6.3-8.2)
[2021-04-14 14:18] LABS: NT-proBNP (BNP-Adult 18+) 1000 pg/mL (<450)
== END ==
PROVIDERS: PCP Family Medicine; Referring Provider Nurse Practitioner Family; Visit Provider Nurse Practitioner Family
DX: R06.02 Shortness of breath (principal); E78.1 Pure hyperglyceridemia; D50.8 Other iron deficiency anemias; E87.1 Hypo-osmolality and hyponatremia; I27.20 Pulmonary hypertension, unspecified; I50.20 Unspecified systolic (congestive) heart failure
CPT/HCPCS: 36415; 80053; 83880; 85025

== ENCOUNTER → 2021-06-23 10:11 | Outpatient (CLI) | payer MEDICARE, SELFPAY ==
[2020-07-04 19:41] VITALS: BMI 25.7
--- NOTE | 2021-06-23 10:22 | DI.CT.S_ITS ---
PROCEDURE: CT LUMBAR SPINE WO CON INDICATIONS: globus robotic CT for planning surgery TECHNIQUE: Noncontrast 3 mm thick sections acquired from the T12 level to the sacrum. Sagittal and coronal reformats were constructed. For radiation dose reduction, the following was used: automated exposure control. COMPARISON: [facility], MR, MR LUMBAR SPINE WO CON, 03/24/2021, 16:25. [facility], CR, XR LUMBAR SPINE 2 OR 3 VIEWS, 04/14/2021, 15:25. FINDINGS: Image quality: Excellent. Bones: 5 lumbar type vertebral bodies are present. There is mild, grade 1 retrolisthesis of L1 on L2, L2 on L3, and L3 on L4. Mild grade 1 anterolisthesis of L4 on L5. Multilevel disc space narrowing and endplate osteophyte formation. Facet hypertrophy throughout the mid and lower lumbar spine. No acute vertebral body compression fractures. No suspicious lytic or blastic bony lesions. No pars defects. Multilevel canal stenoses are present, worst at L1-L2, where there is moderate to severe canal stenosis. Moderate canal stenosis at L2-L3 and L4-L5. Multilevel foraminal stenoses, worst at L2-L3, L3-L4 and L4-L5 bilaterally where there are moderate to severe foraminal stenoses. Left L3-L4 hemilaminotomy has been performed, as before. Findings suggestive of right L4-L5 hemilaminotomy. Soft tissues: No retroperitoneal masses or hematomas. Visualized aorta is normal in caliber. IMPRESSION: 1. Postsurgical sequelae. 2. Multilevel degenerative disc and facet disease, causing multilevel canal and foraminal stenosis as described above. Dictated by: Jackson Payan M.D. on 06/23/2021 at 10:58 Approved by: Jackson Payan M.D. on 06/23/2021 at 11:02
[2021-06-23 10:37] LABS: Add Manual Diff / Slide Review NO; Basophils Absolute Auto 100 /uL (0-100); Basophils Percent Auto 0.7 % (0-2); Eosinophils Absolute Auto 100 /uL (0-450); Eosinophils Percent Auto 1.7 % (2-4); Hematocrit 43.1 % (36-46); Hemoglobin 14.3 g/dL (12.0-16.0); Lymphocytes Absolute Auto 1700 /uL (1100-4500); Lymphocytes Percent Auto 21.9 % (25-40); Mean Corpuscular HGB Conc 33.2 % (30-36); Mean Corpuscular Hemoglobin 30.1 PG (26-34); Mean Corpuscular Volume 90.7 fL (80-100); Monocytes Absolute Auto 700 /uL (0-900); Monocytes Percent Auto 9.3 % (3-14); Neutrophils Absolute Auto 5300 /uL (1500-7000); Neutrophils Percent Auto 66.4 % (50-75); Platelet Count 388 X10^3/uL (150-400); Red Blood Cell Count 4.76 X10^6/uL (4.0-5.2); Red Cell Distribution Width 12.9 % (11.6-14.8); White Blood Cell Count 7.9 X10^3/uL (4.5-11.0)
[2021-06-23 10:47] LABS: Prothrombin Time 10.8 SECONDS (10.1-12.7)
[2021-06-23 10:50] LABS: PTT Partial Thromboplastin Tim 36 SECONDS (26.4-36.2)
[2021-06-23 10:55] LABS: BUN Creatinine Ratio 27.5 (6-22); Blood Urea Nitrogen 42 mg/dL (7-17); Calcium 9.5 mg/dL (8.4-10.2); Carbon Dioxide 35 mmol/L (22-32); Chloride 96 mmol/L (98-107); Estimated Glomerular Filt Rate 32.3 mL/min (>60); Glucose 117 mg/dL (80-110); HEMOLYSIS < 15 (0-50); Potassium 3.5 mmol/L (3.4-5.1); Sodium 138 mmol/L (137-145)
== END ==
PROVIDERS: Family Provider Nurse Practitioner Family; PCP Family Medicine; Referring Provider Orthopaedic Surgery Orthopaedic Surgery of the Spine; Visit Provider Orthopaedic Surgery Orthopaedic Surgery of the Spine
DX: Z51.81 Encounter for therapeutic drug level monitoring (principal); Z01.812 Encounter for preprocedural laboratory examination; M51.36 Other intervertebral disc degeneration, lumbar region; M48.062 Spinal stenosis, lumbar region with neurogenic claudication; Z20.822 Contact with and (suspected) exposure to COVID-19
CPT/HCPCS: 36415; 72131; 80048; 85025; 85610; 85730

== ENCOUNTER → 2021-06-23 10:26 | Outpatient (CLI) | payer MEDICARE, SELFPAY ==
[2020-07-04 19:41] VITALS: BMI 25.7
[2021-06-23 13:55] LABS: COVID19 -Nasal RAPID Negative (Negative)
== END ==
PROVIDERS: Family Provider Nurse Practitioner Family; PCP Family Medicine; Referring Provider Student in an Organized Health Care Education/Training Program; Visit Provider Student in an Organized Health Care Education/Training Program
DX: Z01.812 Encounter for preprocedural laboratory examination (principal); Z20.822 Contact with and (suspected) exposure to COVID-19
CPT/HCPCS: 87635

== ENCOUNTER 2021-06-26 07:42 | Inpatient (IN) | payer MEDICARE, SELFPAY ==
[2020-07-04 19:41] VITALS: BMI 25.7
[2021-06-11 12:53] VITALS: BMI 27.1
--- NOTE | 2021-06-23 19:08 | SUR.PREOP ---
Spoke to daughter Patrizia who is with patient. Notified that surgery tommorrow is cancelled and to call Dr Robles's office to reschedule.
[2021-06-26] VITALS (16 sets, daily range): BP systolic 104–162; BP diastolic 44–111; PULSE 60–701; RESP 8–94; TEMP 35.8–37; O2SAT 12–100; BMI 27.1
[2021-06-26] MEDS: LACTATED RINGERS 1,000 ML 42 ML IV ×2 (09:02→12:34)
--- NOTE | 2021-06-26 09:12 | PM.PREOP ---
Pre-operative Note COVID-19 COVID-19 status: Negative Result date/Date tested (Pos, Neg/Pending): 06/25/21 Interval Note History & Physical reviewed/Exam performed by Physician: Yes Changes to H&P: No
--- NOTE | 2021-06-26 09:38 | SUR.OPER ---
Prone on spine table, head in foam head support, padded chest and pelvic supports, gel pad at knees, lower legs supported by pillows; nipples, genitalia and toes free of pressure, arms secured on foam padded arm boards at <90 degrees abduction. Tape over blanket at thigh secured to table.
[2021-06-26] MEDS: CEFAZOLIN 2 GM/20 ML SYRINGE IV ×3 (10:10→18:41)
[2021-06-26] MEDS: BUPIVACAINE 0.25% (PF) 30 ML, EPINEPHrine 0.3 MG INJ (10:27)
[2021-06-26] MEDS: BUPIVACAINE LIPOSOME 266 MG/20 ML VIAL INJ ×2 (10:27)
--- NOTE | 2021-06-26 13:13 | DI.RAD.S_ITS ---
PROCEDURE: XR LUMBAR SPINE 2-3V INDICATIONS: L3-4, L4-5 TLIF TECHNIQUE: 2 views of the lumbar spine were acquired. COMPARISON: [facility], XR LUMBAR SPINE 2 OR 3 VIEWS, 04/14/2021, 15:25. FINDINGS: Bones: Postsurgical changes compatible with L3-L4 and L4-L5 TLIF. Orthopedic hardware in expected position. Soft tissues: Overlying bowel gas pattern is normal. No suspicious soft tissue calcifications. IMPRESSION: Expected postsurgical change for L3-L4 and L4-L5 TLIF. Dictated by: Felicia Marino MD, PhD on 06/26/2021 at 13:52 Approved by: Felicia Marino MD, PhD on 06/26/2021 at 13:54
--- NOTE | 2021-06-26 13:55 | PM.OP.1 ---
Operative Date/Time/Diagnoses Date of procedure: 06/26/21 Time of procedure: 10:00 Pre-op diagnosis: 1. L3-4, L4-5 spondylolisthesis 2. L3-4, L4-5 spinal stenosis with neurogenic claudication. 3. Hx of L3-4, L4-5 hemilaminectomy with epidural scarring Post-op diagnosis: same Procedure & Clinicians Procedure: 1. L3-4, L4-5 Postero-lateral and posterior interbody fusion 2. L3-4, L4-5 interbody cage placement. 3. L3-4, L4-5 decompressive laminectomy with bilateral facetecomies 4. L3-4, L4-5 Posterior segmental instrumentation 5. Chili of bone marrow from iliac crest 6. Utilization of microsurgical technique and operating microscope 7. Utilization of [employer] robotic navigation for surgery Same procedure as scheduled: Yes Indications: Patient has been having chronic back pain and worsening lumbar radiculopathy. Patient failed multiple conservative management with worsening pain weakness and numbness in her lower extremity. Patient sustained multiple falls recently with progressively worsening extremity weakness left worse than right. Patient has been having difficulty performing activity of daily living. After discussing risks benefits of treatment options, patient elected proceed with surgery. Surgeon: Mark Anthony Robles Broom Man: Savanna Horne Click Yes if Unassisted: No Anesthesia Type: General Operative Notes Closure Type: primary Specimen(s): none sent Prosthetic devices, grafts, tissues, transplants, or devices: Globus CREO MIS screws, Rise cages Applied: catheter Estimated Blood Loss (mL): 100 Blood products transfused: none Procedure in detail: Patient was seen in the preoperative area. Risks and benefits of the surgery was discussed with the patient. Informed consent was obtained from the patient and placed in the chart. Surgical site was marked. Patient was taken to the operative room. General anesthesia was administered. Prophylactic antibiotic was given to the patient less than 30 min before the incision was made. Patient was placed into a prone position on the Jay table. Patient's back was then prepped and draped in the sterile fashion. Time-out was performed at this time. After patient was prepped and draped, patient's PSIS was palpated and marked bilaterally. Small 1 cm incision was made over the PSIS for placement of the reference probes. Two trocar was placed into the PSIS 1 on each side. The reference probe was attached to the trocar of the reference apparatus. At this time the C-arm imaging was used to confirm AP and lateral of L3, L4-L5 vertebrae and merged the C-arm imaging using the [employer] robotic navigation system with the CT of the lumbar spine. After successful merging was completed and confirmed, skin marker was used to keshia out the skin incision using the [employer] robotic arm. Bilateral incision was made at this time. Pre templated trajectory was used and guided using the [employer] robotic navigation system for bilateral L3 L4, L5 pedicle screw placement. This was done by using the robotic arm to guide the high-speed bur to make a cortical entry point. Next a drill was placed also using the robotic arm and guided using the navigation system drilling partially through bilateral L3, L4, L5 pedicles. Next L3, L4, L5 pedicle screws it was pre templated and measured was placed onto the power delivery driver assistant and inserted into the pedicles bilaterally. After all 6 screws were placed C-arm imaging was taken of both AP and lateral to confirm the placement. Excellent placement of the screws were confirmed and a matched precisely with the pre planned screw placement using the navigation system. MARs retractor was inserted using [employer] guidence. Globus MARS retractors was placed inside the incision and docked onto the L3, L4 lamina. Using microsurgical technique and operating microscope, a L4, L5 laminectomy and L3-4, L4-5 facetectomy was performed using a Kerrison rongeur. Patient was found have severe lateral recess and neural foramen stenosis which was fully decompressed after the laminectomy facetectomy. More than 75% of the facets were removed during the process of decompression rendering L3-4, L4-5 level grossly unstable and required a fusion procedure at the same time. Patient was found have significant amount of epidural scarring which was carefully resected during the process of laminectomy and diskectomy. Disc space at L3-4, L4-5 was identified, and a total diskectomy was performed at L3-4, L4-5 level. The endplates were decorticated using a rasp and shaver. The total diskectomy and decortication was performed at L3-4, L4-5 level in order to to accomplish a L3-4, L4-5 fusion. The local bone from the laminectomy and facetectomy was saved for local bone grafting. After the total diskectomy and decortication was completed, Trifecta bone graft material was combined with local bone that was harvested earlier. At this time, a separate skin is incision was made over the iliac crest. A Jamshidi needle was inserted into the iliac crest through a separate skin incision. 5 cc of bone marrow aspiration was obtained through the separate skin incision using a Jamshidi needle from the iliac crest. The bone marrow aspiration was combined with local bone and the Trifecta bone grafting material. The bone grafting material was placed into the L3-4, L4-5 interbody space along with expandable cages. One cage each was inserted into the L3-4 L4-5 interbody space along with bone graft material. The cage was expanded to its maximum height using the torque limiting screwdriver. The disc preparation as well as the cage insertion were also performed under navigation guidance. After the cage was placed, AP and lateral C-arm imaging was taken to confirm placement of the cage and excellent position was confirmed. Globus MARS retractor was inserted and docked onto the L3-4, L4-5 posterolateral gutter on the right side. Using the power drill, posterior-lateral decortication was performed at L3-4, L4-5 level until bleeding cortical bone was identified. The remaining bone grafting material was placed into the L3-4, L4-5 posterior lateral gutter he order to accomplish posterolateral fusion at the L3-4, L4-5 level. At this time the tulips were attached to the L3, L4-L5 pedicle screw shanks. After measuring the length of the rods, they were inserted into the tulips of the pedicle screws and locked in place using locking caps and torque limiting screwdriver bilaterally. Total 6 caps and 2 titanium rods was used in order to complete the posterior instrumentation construct. After all the hardware was placed, and confirmed with AP and lateral C-arm imaging, the wound was then irrigated with sterile normal saline and packed with Ray-Erik gauze for 3 min to accomplish hemostasis. After the gauze was removed the deep fascia was closed with #1 Vicryl suture. The subcutaneous layer was closed with 2-0 Vicryl. The skin was closed with skin marium. Patient tolerated the procedure well. There were no complications. Neuro monitoring system was used to monitor patient's neurologic status throughout entire procedure. There was no disturbance of the neural monitoring signals throughout the case. Complications: none Post-operative Condition: stable Disposition: PACU Plan for aftercare: Admit to inpatient hospital
[2021-06-26] MEDS: HYDROMORPHONE 2 MG INJ IV ×3 (13:58→14:41)
[2021-06-26] MEDS: ONDANSETRON 4 MG/2 ML INJ IV (13:58)
[2021-06-26] MEDS: fentaNYL 100 MCG/2 ML INJ IV (13:59)
[2021-06-26] MEDS: OXYCODONE IR 5 MG TABLET PO ×2 (14:43→14:54)
--- NOTE | 2021-06-26 15:36 | SUR.PHASEI ---
Report to mehdi. Pt was not able to actually provide me a pain score. Restless and moaning which finally did lessen after administering 2 percolone. Pt was transported to room 225 in stable condition.
--- NOTE | 2021-06-26 15:39 | PC.NURSE ---
Day shift: Pt on unit from PACU at approx 1515. She is alert to self only. She keeps saying oh please, oh please VS WNL and RA 99%. Dressing is CDI. Griffiths patent with clear yellow output. Foot SCD's tolerated. Bed alarm is on and call light in reach. Will continue w/ post-op plan of care.
[2021-06-26] MEDS: HYDROMORPHONE 0.5 MG INJ IV ×2 (15:57→20:45)
[2021-06-26] MEDS: hydrOXYzine pamoate 25 MG CAPSULE PO (15:57)
[2021-06-26] MEDS: SODIUM CHLORIDE 0.9% 1,000 ML 100 ML IV ×2 (16:08→23:28)
--- NOTE | 2021-06-26 18:55 | PC.NURSE ---
Day shift: Pt asleep after pain meds per AUG approx 30 minutes after admit. Pt's Daughter in room for support and she will likely stay overnight. 2L NC 99%. Pt does snore at times. Awakens to voice but sleepy. IV fluids per AUG. Call light in reach and bed alarm is on.
[2021-06-26] MEDS: MELATONIN 3 MG TABLET 6 MG PO (20:45)
[2021-06-26] MEDS: SENNOSIDES 8.6 MG TABLET 17.2 MG PO (20:45)
[2021-06-26] MEDS: DULOXETINE 30 MG CAPSULE 60 MG PO (20:45)
[2021-06-26] MEDS: ALPRAZolam 0.25 MG TABLET PO (20:45)
[2021-06-26] MEDS: DOCUSATE 100 MG CAPSULE PO (20:45)
[2021-06-26] MEDS: PRAMIPEXOLE 0.25 MG TABLET 0.125 MG PO (23:30)
[2021-06-27] VITALS (10 sets, daily range): BP systolic 113–145; BP diastolic 48–78; PULSE 68–88; RESP 16–20; TEMP 36.2–38.1; O2SAT 96–100
[2021-06-27] MEDS: CEFAZOLIN 2 GM/20 ML SYRINGE IV (03:08)
[2021-06-27] MEDS: hydrOXYzine pamoate 25 MG CAPSULE PO ×2 (04:42→18:43)
[2021-06-27] MEDS: OXYCODONE IR 5 MG TABLET PO ×3 (04:44→14:26)
[2021-06-27] MEDS: LEVOTHYROXINE 25 MCG TABLET 12.5 MCG PO (06:16)
[2021-06-27 06:30] LABS: Hematocrit 34.5 % (36-46); Hemoglobin 11.4 g/dL (12.0-16.0)
[2021-06-27] MEDS: TORSEMIDE 10 MG TABLET 40 MG PO (09:15)
[2021-06-27] MEDS: SODIUM CHLORIDE 0.9% 1,000 ML 100 ML IV (09:15)
[2021-06-27] MEDS: MAGNESIUM OXIDE 400 MG TABLET PO (09:16)
[2021-06-27] MEDS: DOCUSATE 100 MG CAPSULE PO ×2 (09:16→20:46)
[2021-06-27] MEDS: DULOXETINE 30 MG CAPSULE 60 MG PO ×2 (09:16→20:47)
[2021-06-27] MEDS: METOPROLOL ER 25 MG TABLET PO (09:16)
[2021-06-27] MEDS: POTASSIUM CHLORIDE 10 MEQ TAB 20 MEQ PO (09:17)
--- NOTE | 2021-06-27 09:53 | PM.PNPO.1 ---
Subjective Subjective Date Patient Seen: 06/27/21 Time Patient Seen: 09:53 Interval history: Larissa is resting comfortably in bed with her daughter at bedside. She just received pain medication, and while she is quick to respond and follow commands, she does seem to exhibit some word-finding difficulty. While she is unable to rate her pain on a scale from 0/10, she is able to tell me that the pain is in her back and that her legs are not painful and in fact feel better than before surgery. She exhibits pain only when log-rolling to view incisions. No nausea or vomiting. Exam Vital Signs (past 8 hours): - 06/27/21 04:00 06/27/21 09:16 Temperature 97.3 F L Pulse Rate 68 Respiratory Rate 19 Blood Pressure 118/56 L 118/56 L Pulse Oximetry 99 Oxygen Delivery Method Nasal Cannula Oxygen Flow Rate 3.5 Narrative Exam Narrative: 5/5 strength in quadriceps, hamstrings, dorsiflexors, plantarflexors bilaterally. She is actually quite mobile with her legs and feet. Sensation to touch intact throughout BLE. Calves soft, compressible, nontender with no palpable cords or masses. Const General: cooperative and comfortable Orientation: alert, awake and oriented x3 Objective Labs Result Diagrams: 06/27/21 06:10 Labs: Laboratory Results - last 24 hr 06/27/21 06:10 Hgb 11.4 L Hct 34.5 L PFSH Medical History (Updated 06/27/21 @ 09:58 by Savanna Horne PA-C) Actinic keratosis Arm fracture, left (04/2021) Arthritis Back disorder Breast cancer Expressive aphasia Hearing loss HTN (hypertension) Hyponatremia Hypothyroid Insomnia Lyme disease Migraine Rheumatic fever without heart involvement TIA (transient ischemic attack) Surgical History (Updated 06/27/21 @ 09:58 by Savanna Horne PA-C) History of carpal tunnel repair History of hysterectomy History of lumbar laminectomy History of total right hip replacement (06/09/20) Hx of bilateral cataract extraction Hx of repair of left rotator cuff Hx of tonsillectomy Status post bunionectomy Status post hysterectomy Status post knee surgery Status post partial mastectomy Family History Father Stroke Grandfather Stroke Social History household members: spouse Smoking Status: Never smoker alcohol intake: current Assessment & Plan Post-op Assessment and plan (1) S/P lumbar fusion: Assessment and Plan narrative: Recovery as expected. Mobilize with PT. D/c english. (2) Acute postoperative anemia due to expected blood loss: Assessment and Plan narrative: No intervention needed at this time. Postoperative Procedures: Procedures Operation Date: 06/26/21 09:15 Actual Procedure Side Surgeon p L3-4, L4-5 TLIF w. posterior instrumentation - Robot Mark Anthony Robles MD Postoperative day: 1 Quality VTE Deep Vein Thrombosis/Pulmonary Embolism Present on Admission: No
--- NOTE | 2021-06-27 10:25 | OT.IP.EVAL ---
Current Diagnoses Acute posthemorrhagic anemia (06/26/21) Spondylolisthesis, lumbar region (06/26/21) Spinal stenosis, lumbar region with neurogenic claudication (06/26/21) Postlaminectomy syndrome, not elsewhere classified (06/26/21) Arthrodesis status (06/26/21) Surgery Performed Operation Date: 06/26/21 09:15 Actual Procedures p L3-4, L4-5 TLIF w. posterior instrumentation - [place] - Mark Anthony Robles MD Past Medical History (Last Reviewed 06/26/21 @ 07:03 by Neelam Mccoy, RN) Actinic keratosis Arm fracture, left (04/2021) Arthritis Back disorder Breast cancer Expressive aphasia Hearing loss History of hysterectomy History of lumbar laminectomy History of total right hip replacement (06/09/20) HTN (hypertension) Hx of bilateral cataract extraction Hx of repair of left rotator cuff Hx of tonsillectomy Hyponatremia Hypothyroid Insomnia Lyme disease Migraine Rheumatic fever without heart involvement TIA (transient ischemic attack) Surgical History (Last Reviewed 06/26/21 @ 07:04 by Neelam Mccoy, AMY) History of carpal tunnel repair History of hysterectomy History of lumbar laminectomy History of total right hip replacement (06/09/20) Hx of bilateral cataract extraction Hx of repair of left rotator cuff Hx of tonsillectomy Status post bunionectomy Status post hysterectomy Status post knee surgery Status post partial mastectomy Occupational Therapy Inpatient Evaluation/Re-Eval M1 PT/OT-IP Prior Functional Status Start: 06/27/21 11:37 Freq: NEEDED Status: Active Protocol: Document 06/27/21 11:37 [facility] (Rec: 06/27/21 11:57 [facility] [id number]) Medical Review Prior Functional Status Communication Independent Activities of Daily Living and IADL's Due to her pain, her was assist her with IADL and occasionally LB dressing needs . Prior Functional Level (Other details) Pt's daughter, Patrizia lives 4 miles away and able to assist if needed. Otherwise per daughter, her dad is in good health and able to assist pt for all needs. Social History Household Members spouse Living Arrangements Nursing Home Facility Number of Floors (Floors) One Floor Number of Stairs To Enter/Railing? NO steps to get in. Home Environment Standard Height Toilet,Walk in Shower Home Equipment Front Wheel Walker,Four Wheel Walker,Straight Cane,Hand Held Shower,Long Handled Sponge, Long Handled Shoe Horn,Area Mechanic ,Sock Aid,Grab Bars Near Toilet,Grab Bars In Shower Additional Social History Comment Pt has a built in seat for the shower. Pt had a recent fall in 04/2021 resulting in left humerus fx and per pt and daughter now trying to use her arm again. Both states there are no restrictions for use of LUE at this time. Pt has prior history of mild expressive aphasia but per daughter is having more trouble since surgery. Pt is also having trouble to following directions as therapist is wearing a mask and that she usually reads lips. M2 OT-IP Current Condition Start: 06/27/21 11:37 Freq: Status: Active Protocol: Document 06/27/21 11:37 [facility] (Rec: 06/27/21 11:57 [facility] [id number]) Occupational Therapy Current Condition Current Condition Evaluation Date 06/27/21 Treatment Diagnosis S/p L3-4 , L4-5 TLIF Diagnosis Onset Date 06/26/21 Post Operative Precautions Lumbar Precautions Log Roll,No Twisting,Limit Bending,Lifting Restriction of 10 lbs,Gait Belt above Incisional Area M3 OT- IP Subjective and Pain Start: 06/27/21 11:37 Freq: Status: Active Protocol: Document 06/27/21 11:37 [facility] (Rec: 06/27/21 11:57 [facility] [id number]) OT- Subjective Occupational Therapy Visit Type Type Initial Evaluation Visit Start Time 09:35 Visit Stop Time 10:25 Total Visit Minutes 50 Occupational Therapy Visit Comments Patient Comments Pt agreed to get up. Pt's daughter in the room. Patient/Caregiver Goals TO go home. OT Pain Assessment Pain When Pain Assessed At Rest Pain Present Pain Present Pain Reported Location low back Intensity 5 Scale Used Numeric (0 - 10) M4 OT- IP ADL's Start: 06/27/21 11:37 Freq: Status: Active Protocol: Document 06/27/21 11:37 [facility] (Rec: 06/27/21 11:57 [facility] [id number]) OT TFO-[id number] General Evaluation Self-Feeding Ability Independent OT ADL-Grooming General Evaluation Grooming Ability Standby Assistance OT ADL-Oral Care General Eval Oral Care Ability Standby Assistance Comments Oral Care Comments Initial vc of best to spit into a cup to best follow her back precautions. OT ADL-Dressing General Eval Lower Body Dressing Ability Maximum Assistance Areas Needing Assistance Socks OT ADL-Toileting General Evaluation Toileting Ability Total Assistance Areas Needing Assistance Empty Catheter or Colostomy Pt usually wipes from the front. Able to educated pt on possible use of toilet paper aid, wet wipes, and pt able demonstrate to use her right hand to reach back to wipe while using the other hand to hold to the FWW and also assist from therapist for balance. Comments OT Toileting Comments English in place and pt forgetting that the english was in place. OT ADL-Bathing Comments OT Bathing Comments Not at this time, pt may benefit from a shower chair at home. M5 OT- IP IADL's Start: 06/27/21 11:37 Freq: Status: Active Protocol: Document 06/27/21 11:37 [facility] (Rec: 06/27/21 11:57 [facility] [id number]) OT-Instrumental Activities of Daily Living Home Safety Awareness Home Safety Comments Pt is a bit confused at this time coming out of surgery and would be best to have someone assist her for all her needs. M6 OT- IP Functional Cognition Start: 06/27/21 11:37 Freq: Status: Active Protocol: Document 06/27/21 11:37 [facility] (Rec: 06/27/21 11:57 [facility] [id number]) Cognitive Factors Limiting Selfcare Function Cognitive Ability Level of Alertness Alert,Confusional State Patient Orientation Name,Place,Situation Attention Span Ability Capable of Focused Attention, Unable to Sustain Attention Ability to Follow Commands Able to Follow One Step Commands with Increased Time, Able to Follow One Step Commands with Repetition Safety Awareness Decreased Recall of Precautions,Decreased Ability to Apply Precautions, Underestimates Need for Assistance Cognitive Comments Cognitive Assessment Comments Pt a bit confused and partially unable to read lips from therapist as having to wear a mask. Pt forgetting that she has a catheter in as she states having to get to the bathroom. Pt needing concrete step by step instructions. Pt is a bit impulsive. OT- Vision and Hearing OT- Hearing Assessment OT- Hearing Assessment Use of Hearing Aids OT- Vision Assessment Visual Acuity Glasses For Reading M7 OT- IP Mobility and Balance Start: 06/27/21 11:37 Freq: Status: Active Protocol: Document 06/27/21 11:37 [facility] (Rec: 06/27/21 11:57 [facility] [id number]) OT- Bed Mobility Assessment Rolling Type of Rolling Roll to Right Level of Assistance Contact Guard Assistance Supine to Sit Supine to Sit Assist Minimal Assistance Scooting Scooting to Edge of Bed Contact Guard Assistance OT-Transfer Assessment Sit to and From Stand Sit to and from Stand Minimal Assistance Transfers Transfer Ability Minimal Assistance Technique Transfer Destination Bed,Chair Transfer Technique Stand Step Pivot Devices Transfer Assistive Devices Gait Belt,Front Wheeled Walker Comments Mobility Comments Educated pt for log rolling and needing JEWELL to help get her trunk upright. JEWELL to stand and vc to push up on the bed with at least one hand. Placing her left hand on the FWW and right hand on the bed seems to work the best for her at this time. OT- Balance Assessment Sitting Balance and Reactions Static Sitting Balance Ability Good Dynamic Sitting Balance Ability Fair Standing Balance and Reactions Static Standing Balance Ability Fair Comments Other Balance Tests/Deviations/Treatment Pt had slight loss of balance : while backing up with FWW and needing JEWELL for balance. M8 OT- IP Objective Assessments Start: 06/27/21 11:37 Freq: Status: Active Protocol: Document 06/27/21 11:37 [facility] (Rec: 06/27/21 11:57 [facility] [id number]) OT Gross Range of Motion Upper Extremity Range of Motion Assessment Left Impaired OT Strength Upper Extremity Strength Assessment Left Impaired OT-Muscle Tone Assessment Muscle Tone WNL Yes M9 OT- IP Assessment and Plan Start: 06/27/21 11:37 Freq: Status: Active Protocol: Document 06/27/21 11:37 [facility] (Rec: 06/27/21 11:57 [facility] [id number]) OT Summary Assessment and Plan Potential Rehabilitation Potential Good Analytic Complexity at Evaluation Low Summary OT Impairments Balance,Functional Cognition, Functional Mobility Progress Towards Goals Progressing Toward Goals,Slow Progress due to Pain,Slow Progress due to Cognition Assessment Summary Pt low complexity and main barriers as pt is bit confused from surgery, needing cues to follow her back precautions, and will benefit from 24/7 assist at home. Pt has a supportive family to be able to assist pt for all needs when medically stable. Goals Self-Feeding Goal Independent Grooming Goal Independent Dressing Goal Independent Toileting Goal Independent Bathing Goal Standby Assistance Toilet Transfer Goal Independent Shower Transfer Goal Independent Patient/Caregiver Education Goal Demonstrate Energy Conservation and Pacing, Caregiver Independent Assisting Patient Days to Meet Goals 4 Frequency of Treatment Frequency Of Treatment Once a Day Treatment Plan OT Treatment Plan ADL Training,Functional Cognition Training,Functional Mobility,Patient/Family Education,Discharge Planning Other Treatment Recommendations and Next shower if still here Treatment Focus Discharge Recommendations OT Discharge Recommendations Home with 24/ Assist Available Home Equipment Needs shower chair Transportation Needs at Discharge Private Vehicle
[2021-06-27] MEDS: PRAMIPEXOLE 0.25 MG TABLET 0.125 MG PO ×2 (10:29→20:46)
--- NOTE | 2021-06-27 12:01 | PT.IIE ---
Current Diagnoses Acute posthemorrhagic anemia (06/26/21) Spondylolisthesis, lumbar region (06/26/21) Spinal stenosis, lumbar region with neurogenic claudication (06/26/21) Postlaminectomy syndrome, not elsewhere classified (06/26/21) Arthrodesis status (06/26/21) Surgery Performed Operation Date: 06/26/21 09:15 Actual Procedures p L3-4, L4-5 TLIF w. posterior instrumentation - [place] - Mark Anthony Robles MD Surgical History (Last Reviewed 06/26/21 @ 07:04 by Neelam Mccoy, AMY) History of carpal tunnel repair Status post bunionectomy Status post hysterectomy Status post knee surgery Status post partial mastectomy Medical History (Last Reviewed 06/26/21 @ 07:03 by Neelam Mccoy RN) Actinic keratosis Arm fracture, left (04/2021) Arthritis Back disorder Breast cancer Expressive aphasia Hearing loss HTN (hypertension) Hyponatremia Hypothyroid Insomnia Lyme disease Migraine Rheumatic fever without heart involvement TIA (transient ischemic attack) Physical Therapy Inpatient Evaluation/Re-Eval M1 PT/OT-IP Prior Functional Status Start: 06/27/21 13:36 Freq: NEEDED Status: Active Protocol: Document 06/27/21 12:01 AB (Rec: 06/27/21 13:52 AB [id number]) Medical Review Prior Functional Status Medical History Reviewed Yes Communication able to make needs known; pt with aphasia and requires repeated cues to follow directions or answer questions Activities of Daily Living and IADL's pt stated that she uses a FWW indoors and a 4WW for outdoor mobility Social History Household Members spouse Living Arrangements Assisted Facility Number of Floors (Floors) One Floor Number of Stairs To Enter/Railing? pt lives in an independent living facility no steps to enter Home Environment High Toilet,Walk in Shower, Built-In Shower Seat Home Equipment Front Wheel Walker,Four Wheel Walker,Straight Cane,Hand Held Shower,Long Handled Sponge, Long Handled Shoe Horn,Process Development Chemist ,Sock Aid,Grab Bars Near Toilet,Grab Bars In Shower Additional Social History Comment pt stated that her daughter assists her when she is needing more assistance. daughter lives ~ 4 miles away and pt call her if she needed more assist pt stated that she has a bed rail at home M2 PT-IP Current Condition Start: 06/27/21 13:36 Freq: NEEDED Status: Active Protocol: Document 06/27/21 12:01 AB (Rec: 06/27/21 13:52 AB [id number]) Physical Therapy Current Condition Current Condition Evaluation Date 06/27/21 Treatment Diagnosis s/p L3-4, L4-5 fusion/lami; difficulty in walking Onset Date 06/26/21 M3 PT-IP Subjective Start: 06/27/21 13:36 Freq: NEEDED Status: Active Protocol: Document 06/27/21 12:01 AB (Rec: 06/27/21 13:52 AB [id number]) Subjective Physical Therapy Visit Type Type Initial Evaluation Visit Start Time 12:01 Visit Stop Time 12:30 Total Visit Minutes 29 Number of PROGRAM ASSISTANT Visits 0 Physical Therapy Visit Comments Patient Comments agreeable to do PT Therapy Pain Assessment Pain When Pain Assessed At Rest Pain Present Pain Present Pain Reported Location low back Scale Used pain scale not stated M4 PT-IP Mobility and Gait Start: 06/27/21 13:36 Freq: NEEDED Status: Active Protocol: Document 06/27/21 12:01 AB (Rec: 06/27/21 13:52 AB [id number]) PT-Bed Mobility Assessment Supine to Sit Supine to Sit Minimal Assistance Sit to Supine Sit to Supine Minimal Assistance,Bedrails PT-Transfer Assessment Sit to and From Stand Sit to and from Stand Minimal Assistance,1 Person Assistance,Use of Upper Extremities Equipment Transfer Assistive Device Gait Belt,Front Wheeled Walker Orthotic/Prosthetic Devices or Brace: No Transfers Transfer Destination Bed Transfer Technique Stand Step Pivot Transfer Ability Level of Assist Minimal Assistance,1 Person Assistance,Use of Upper Extremities Comments Mobility Comments pt sitting on chair. able to answer some questions but requires repetitions to understand. pt with h/o aphasia. pt completed sit to stand from chair min A and completed transfer to bed min A using FWW. pt can be impulsive. completed bed mobility supine to sit min A and max cues for log roll. pt unable to recall and adhere to precautions requiring cues for safety. c/o dizziness. BP: 136/78. pt completed supine to sit min a and max cues. sit to stand from bed min A and was able to ambulate in room using FWW ~ 30 ft min A and cues. pt agreed to stay up on chair. positioned on chair. call light and table placed within reach. Gait Assessment Gait Gait Assistance Required: Minimum Assistance Distance (Feet) 30 Assistive Devices Assistive Device Gait Belt Orthotic/Prosthetic Devices or Brace: No Gait Deviations General Gait Pattern Antalgic,Decreased Stride Length,Decreased Feet Clearance Factors Limiting Gait Function Factors Limiting Gait Function Decreased Activity Tolerance, Decreased Strength,Difficulty Following Directions,Limited Range of Motion,Pain,Poor Balance,Poor Safety Awareness PT-Balance Assessment Sitting Balance and Reactions Static Sitting Balance Ability Good Dynamic Sitting Balance Ability Good Standing Balance and Reactions Static Standing Balance Ability Fair Dynamic Standing Balance Ability Fair Device Used FWW M5 PT-IP Objective Assessments Start: 06/27/21 13:36 Freq: NEEDED Status: Active Protocol: Document 06/27/21 12:01 AB (Rec: 06/27/21 13:52 AB [id number]) Orientation Orientation/Cognition Level of Alertness Confusional State Orientation Name Language Function Ability Expressive Aphasia,Receptive Aphasia,Word Finding Difficulties,Hard of Hearing Safety Awareness Decreased Safety Awareness Gross Range of Motion Lower Extremity ROM Assessment Within Functional Limits Strength Lower Extremity Strength Hip 3+/5 Knee 4-/5 Sensation Assessment Sensation Gross Sensation WNL Muscle Tone Muscle Tone WNL Yes M6 PT-IP Treatment Start: 06/27/21 13:36 Freq: NEEDED Status: Active Protocol: Document 06/27/21 12:01 AB (Rec: 06/27/21 13:52 AB [id number]) Physical Therapy Treatment Education Education Provided Precautions,Weight Bearing Status,Safety M7 PT-IP Assessment and Plan Start: 06/27/21 13:36 Freq: NEEDED Status: Active Protocol: Document 06/27/21 12:01 AB (Rec: 06/27/21 13:52 [email or web address]) PT Summary Assessment and Plan Potential Rehabilitation Potential Good Status of Condition at Evaluation Evolving Summary Impairments Pain,ROM,Strength,Balance, Coordination,Sensation,Tone, Cognition,Bed Mobility, Transfers,Gait,Activity Tolerance Assessment Summary pt requiring min A with mobility using FWW. pt has decrease safety awareness affecting mobility and requiring cues with all tasks. will conduct caregiver training when appropriate. will continue to assess progress. Goals Bed Mobility Goal Independent Transfer Goal Independent,Front Wheeled Walker Gait Goal Independent,Front Wheel Walker Gait Distance 200 Other Goals improve ambulation using 4WW 200 ft Days to Meet Goals 10 Frequency of Treatment Frequency Of Treatment Twice a Day Treatment Plan Physical Therapy Treatment Plan Bed Mobility Training,Transfer Training,Gait Training, Therapeutic Exercise,Balance Retraining,Post Op Education, Discharge Planning,Hot or Cold Pack,Neuromuscular Re-ed, Coordination Retraining,Manual Therapy Precautions Lumbar Precautions Log Roll,No Twisting,Limit Bending,Lifting Restriction of 10 lbs,Gait Belt above Incisional Area Recommendations To Nursing Amount of Assist Needed 1 Person Assist Discharge Recommendations PT Discharge Recommendations Home with 24/7 Assist Available,Home Health Transportation Needs at Discharge Private Vehicle
[2021-06-27] MEDS: LIOTHYRONINE 25 MCG TABLET PO (12:40)
--- NOTE | 2021-06-27 15:20 | CM.IDA ---
Addendum entered by DESIRAE Mcnulty 06/27/21 15:25: ADD: Patient's physical address: [address] [place] [id number] Original Note: Initial DCP Assessment Note Pt is an 86 yo female, resident of [place], now POD#[address] Robles PCP: Bobby Zuluaga Payer: Jai [facility] Reviewed chart, pt discussed in multidisciplinary rounds this morning. Therapy has cleared pt for return home w/family to assist and pt has planned for home Met w/patient at bedside to introduce role; dtr Patrizia had just left per RN. Patient is a bit disoriented, has some word finding difficulty; but able to explain she lives w/her spouse on [facility], dtr lives 4 miles away and makes herself available to assist patient/spouse as needed. Patient plans to DC home w/assist from dtr. According to RN and therapy team; dtr Patrizia at bedside today and has agreed to this plan. Plan: DC home w/family via pov, likely POD#2-3. r/o need for [facility] (?) DESIRAE Crawley Discharge Planning/Care Management CM Discharge Assessment Start: 06/27/21 15:15 Freq: Status: Active Protocol: Document 06/27/21 15:15 MING (Rec: 06/27/21 15:20 MING [id number]) Discharge Planning Assessment Assigned Executive Staff Assistant DESIRAE Gonzalez DPOA/Assigned Designee Name Patrizia ej Meza Don () [phone] or cell: Contact Information [phone] Advance Directives? Yes Advance Directives on File No History Provided By Patient,Family Member,Medical Record Prior Living Arrangements Snf Facility Comment Senior apt[facility] Household Members spouse Type of transporation used prior to Relies on Others admit Independent with ADL's No: Requires assist Is patient alert and oriented? No: mild Confusion, aphasia Needs Assistance With Bathing,Meal Prep,Managing Medications,Home Chores / Shopping Comment Dtr Patrizia lives 4 miles away and assists as needed Patient/Family Preference Home with Home Health Barriers to Discharge No Comment Home w/ Dtr Discharge Plan Home with Home Health Transportation Arrangement Family to provide transport Referrals Initiated Home Health,Other Additional Comment Need to discuss w/patient/dtr
--- NOTE | 2021-06-27 15:25 | PT.IPTN ---
Current Diagnoses Acute posthemorrhagic anemia (06/26/21) Spondylolisthesis, lumbar region (06/26/21) Spinal stenosis, lumbar region with neurogenic claudication (06/26/21) Postlaminectomy syndrome, not elsewhere classified (06/26/21) Arthrodesis status (06/26/21) Surgery Performed Operation Date: 06/26/21 09:15 Actual Procedures p L3-4, L4-5 TLIF w. posterior instrumentation - Robot - Mark Anthony Robles MD Physical Therapy Treatment Note M2 PT-IP Current Condition Start: 06/27/21 13:36 Freq: NEEDED Status: Active Protocol: Document 06/27/21 12:01 AB (Rec: 06/27/21 13:52 AB [id number]) Physical Therapy Current Condition Current Condition Evaluation Date 06/27/21 Treatment Diagnosis s/p L3-4, L4-5 fusion/lami; difficulty in walking Onset Date 06/26/21 M3 PT-IP Subjective Start: 06/27/21 13:36 Freq: NEEDED Status: Active Protocol: Document 06/27/21 14:53 KS (Rec: 06/27/21 16:14 KS [id number]) Subjective Physical Therapy Visit Type Type Treatment Note Visit Start Time 14:53 Visit Stop Time 15:25 Total Visit Minutes 32 Number of TRACK WORKER Visits 1 Physical Therapy Visit Comments Patient Comments agreeable to do PT Therapy Pain Assessment Pain When Pain Assessed During Mobility Pain Present Pain Present Pain Reported Location low back Scale Used pain scale not stated Pain Behaviors Facial Grimacing,Guarding, Wincing Pain Management Techniques Distraction,Timing of Activity with Medications M4 PT-IP Mobility and Gait Start: 06/27/21 13:36 Freq: NEEDED Status: Active Protocol: Document 06/27/21 14:53 KS (Rec: 06/27/21 16:14 KS [id number]) PT-Bed Mobility Assessment Rolling Type of Rolling Log Rolling,Roll to Right Supine to Sit Supine to Sit Minimal Assistance Scooting Scooting to Edge of Bed Contact Guard Assistance PT-Transfer Assessment Sit to and From Stand Sit to and from Stand Contact Guard Assistance,1 Person Assistance,Use of Upper Extremities Equipment Transfer Assistive Device Gait Belt,Front Wheeled Walker Orthotic/Prosthetic Devices or Brace: No Transfers Transfer Destination Chair Transfer Technique Pt ambulated w/ FWW Transfer Ability Level of Assist Minimal Assistance,1 Person Assistance,Use of Upper Extremities Comments Mobility Comments Pt in bed upon arrival from therapy and agreeable to ambulate. Unable to recall precautions. Pt CGA and cues for logroll, Min A for sidelying<>sit and CGA for scooting EOB as well as sit<> stand w/ FWW. Pt then ambulated ~15 ft to toilet and after voiding ambulated addtional ~85 ft around room w / FWW and CGA and transferred to chair CGA. Pt left in chair w/ alarm on and all needs in reach. Gait Assessment Gait Gait Assistance Required: Contact Guard Assist,1 Person Assist Distance (Feet) 100 Assistive Devices Assistive Device Gait Belt,Front Wheeled Walker Orthotic/Prosthetic Devices or Brace: No Gait Deviations General Gait Pattern Antalgic,Decreased Stride Length,Decreased Feet Clearance Factors Limiting Gait Function Factors Limiting Gait Function Decreased Activity Tolerance, Decreased Strength,Difficulty Following Directions,Limited Range of Motion,Pain,Poor Balance,Poor Safety Awareness Comments Gait Comments Pt CGA for ambulation, no LOB however pt reports several recent falls. PT-Balance Assessment Sitting Balance and Reactions Static Sitting Balance Ability Good Dynamic Sitting Balance Ability Good Standing Balance and Reactions Static Standing Balance Ability Fair Dynamic Standing Balance Ability Fair Device Used FWW M5 PT-IP Objective Assessments Start: 06/27/21 13:36 Freq: NEEDED Status: Active Protocol: Document 06/27/21 12:01 AB (Rec: 06/27/21 13:52 AB [id number]) Orientation Orientation/Cognition Level of Alertness Confusional State Orientation Name Language Function Ability Expressive Aphasia,Receptive Aphasia,Word Finding Difficulties,Hard of Hearing Safety Awareness Decreased Safety Awareness Gross Range of Motion Lower Extremity ROM Assessment Within Functional Limits Strength Lower Extremity Strength Hip 3+/5 Knee 4-/5 Sensation Assessment Sensation Gross Sensation WNL Muscle Tone Muscle Tone WNL Yes M6 PT-IP Treatment Start: 06/27/21 13:36 Freq: NEEDED Status: Active Protocol: Document 06/27/21 14:53 KS (Rec: 06/27/21 16:14 KS [id number]) Physical Therapy Treatment Exercises Exercises Ankle Pumps Education Education Provided Precautions,Weight Bearing Status,Safety M7 PT-IP Assessment and Plan Start: 06/27/21 13:36 Freq: NEEDED Status: Active Protocol: Document 06/27/21 14:53 KS (Rec: 06/27/21 16:14 KS [id number]) PT Summary Assessment and Plan Potential Rehabilitation Potential Good Status of Condition at Evaluation Evolving Summary Impairments Pain,ROM,Strength,Balance, Coordination,Sensation,Tone, Cognition,Bed Mobility, Transfers,Gait,Activity Tolerance Progress Towards Goals Progressing Toward Goals Assessment Summary Pt Min A for bed mobility, CGA for transfers and ambulation. Able to tolerate 100 ft ambulation w/ FWW. Unable to recall precautions. Pt will benefit from continued acute PT and will require caregiver training if going home. Outpatient therapy when appropriate to assist w/ balance deficits. Goals Bed Mobility Goal Independent Transfer Goal Independent,Front Wheeled Walker Gait Goal Independent,Front Wheel Walker Gait Distance 200 Other Goals improve ambulation using 4WW 200 ft Days to Meet Goals 10 Frequency of Treatment Frequency Of Treatment Twice a Day Treatment Plan Physical Therapy Treatment Plan Bed Mobility Training,Transfer Training,Gait Training, Therapeutic Exercise,Balance Retraining,Post Op Education, Discharge Planning,Hot or Cold Pack,Neuromuscular Re-ed, Coordination Retraining,Manual Therapy Precautions Lumbar Precautions Log Roll,No Twisting,Limit Bending,Lifting Restriction of 10 lbs,Gait Belt above Incisional Area Recommendations To Nursing Amount of Assist Needed 1 Person Assist Discharge Recommendations PT Discharge Recommendations Home with 03/01 Assist Available,Home Health Other Discharge Recommendations Review spinal precautions, caregiver training, balance Transportation Needs at Discharge Private Vehicle
--- NOTE | 2021-06-27 15:47 | PC.NURSE ---
Pt resting at intervals today. Med w/ Oxycodone for discomfort w/good relief. Dsg to back CDI Lungs Clear/shalow SpoO2 95% RA Worked w/PT, sitting in chair, w/o incidence. Griffiths cath D/C'd at 1400, clear yellow urine. Voided w/ PT a bit later. Call light w/in reach, bed alarm on for pt safety. Continue w/plan of care.
[2021-06-27] MEDS: HYDROMORPHONE 0.5 MG INJ IV ×2 (16:43→20:42)
[2021-06-27] MEDS: ACETAMINOPHEN 325 MG TABLET 650 MG PO (20:46)
[2021-06-27] MEDS: SENNOSIDES 8.6 MG TABLET 17.2 MG PO (20:46)
[2021-06-27] MEDS: ALPRAZolam 0.25 MG TABLET PO (20:46)
[2021-06-27] MEDS: MELATONIN 3 MG TABLET 6 MG PO (20:47)
[2021-06-28] VITALS (15 sets, daily range): BP systolic 87–138; BP diastolic 36–87; PULSE 66–86; RESP 19–29; TEMP 36.5–37.9; O2SAT 91–100
[2021-06-28] MEDS: OXYCODONE IR 5 MG TABLET PO ×2 (00:37→22:11)
[2021-06-28] MEDS: hydrOXYzine pamoate 25 MG CAPSULE PO (00:40)
[2021-06-28] MEDS: SODIUM CHLORIDE 0.9% 1,000 ML 1000 ML IV (01:30)
--- NOTE | 2021-06-28 01:48 | P.CONS_ITS ---
History of Present Illness Consult details Date Patient Seen: 06/28/21 Time Patient Seen: 01:48 Chief complaint: TLIF Reason for consult: Post-op hypotension Narrative: Requested by nursing to see the patient as they had been unable to reach the provider Dr. Johnson who performed a TLIF on TuesdayJune 26. Patient started to drop her blood pressures into the low 80s with MAPs in the high 40s to mid- 50s. Nursing did start to bolus the patient but patient was not responding. She was also administered narcan with no effect. By the time I reached the room (5 minutes after notification) she had been placed in Trandelenberg position and was receiving a normal saline bolus and her blood pressure improved to a systolic of 107. Patient can speak in brief sentences and is referring to her daughter, Patrizia who was at her bedside. Patient denies shortness of breath, chest pain or nausea. She continues to endorse pain at the surgical site, states pain up her right leg is gone. Meds Home Medications and Allergies Home Medications Medication Instructions Recorded Confirmed Type magnesium oxide 400 mg PO Q DAY #0 01/08/16 06/26/21 History alprazolam 0.25 mg tablet 0.25 mg PO BEDTIME 06/03/20 06/11/21 History duloxetine 60 mg capsule,delayed 60 mg PO BID 06/03/20 06/11/21 History release ibuprofen 200 mg tablet 200 mg PO TID PRN 06/03/20 06/26/21 History liothyronine 25 mcg tablet 25 mcg PO DAILY 06/03/20 06/26/21 History melatonin 5 mg tablet 5 mg PO BEDTIME 06/03/20 06/26/21 History pramipexole 0.25 mg tablet 0.125 mg PO BID 06/03/20 06/26/21 History oxycodone 5 mg tablet 5 mg PO Q4-6H PRN #50 tab 07/08/20 06/26/21 Rx aspirin 81 mg tablet,delayed 81 mg PO BEDTIME 06/11/21 06/11/21 History release (Aspirin Low Dose) levothyroxine 25 mcg tablet 12.5 mcg PO DAILY 06/11/21 06/26/21 History metoprolol succinate 25 mg 25 mg PO DAILY 06/11/21 06/26/21 History tablet,extended release 24 hr potassium chloride 10 mEq 20 meq PO DAILY 06/11/21 06/26/21 History tablet,extended release torsemide 20 mg tablet 40 mg PO DAILY 06/11/21 06/11/21 History Allergies Allergy/AdvReac Type Severity Reaction Status Date / Time gabapentin AdvReac Severe Balance Verified 06/11/21 13:16 issues, cognitive issues/memory issues Review of Systems Review of Systems ROS: Yes other (lethargic) Exam Vital Signs (past 8 hours): - 06/27/21 20:00 06/27/21 20:46 06/28/21 00:00 Temperature 100.5 F H 100.6 F H 100.2 F H Pulse Rate 85 86 Respiratory Rate 18 20 Blood Pressure 127/48 L 90/36 L Pulse Oximetry 98 99 Oxygen Delivery Method Nasal Cannula Oxygen Flow Rate 3 Narrative Exam Narrative: Gen: Alert, oriented, mildly overweight 86 y.o. female, awake, febrile at 100.2 HEENT: normocephalic, atraumatic, conjunctiva clear, sclera non-icteric, oral mucosa pink and moist Neck: supple, full ROM, no JVD, trachea is midline Resp: Lungs CTA, non-labored breathing CV: RRR, no murmur or rubs Abd: soft, non-tender, normoactive BTs Skin: no lesions or rashes, dry and intact Neuro: Alert and oriented X 4 w/no focal deficits. Speech slightly slurred but clear, no facial asymmetry. Extremities: moves all 4 extremities, is ambulatory, negative Noelle?s sign Psyche: normal mood and affect. Objective Labs Result Diagrams: 06/27/21 06:10 Labs: Laboratory Results - last 24 hr 06/27/21 06:10 Hgb 11.4 L Hct 34.5 L PFSH Medical History Actinic keratosis Arm fracture, left (04/2021) Arthritis Back disorder Breast cancer Expressive aphasia Hearing loss HTN (hypertension) Hyponatremia Hypothyroid Insomnia Lyme disease Migraine Rheumatic fever without heart involvement TIA (transient ischemic attack) Surgical History History of carpal tunnel repair History of hysterectomy History of lumbar laminectomy History of total right hip replacement (06/09/20) Hx of bilateral cataract extraction Hx of repair of left rotator cuff Hx of tonsillectomy Status post bunionectomy Status post hysterectomy Status post knee surgery Status post partial mastectomy Family History Father Stroke Grandfather Stroke Social History household members: spouse Tobacco & Substance Use Smoking Status: Never smoker alcohol intake: current (beer with dinner daily) Assessment & Plan Assessment & Plan narrative: Larissa Ibrahim is an 86 y.o. POD #2 TLIF with post-operative hypotension. 1. Post operatie hypotension * Order made to provide a NS bolus * I have ordered scheduled po tylenol q 6 hours for fever and pain * d/c'd dilaudid q 2 hours as needed for pain. * Will provide on requested basis or consider switching to IV morphine for breakthrough pain. * she has po oxycodone for pain. We will follow overnight and in anticipation of discharge tomorrow will sign off then. COVID-19 COVID-19 status: Negative Result date/Date tested (Pos, Neg/Pending): 06/25/21
[2021-06-28] MEDS: ACETAMINOPHEN 325 MG TABLET 650 MG PO ×5 (02:26→23:31)
[2021-06-28 03:44] LABS: Add Manual Diff / Slide Review NO; Basophils Absolute Auto 0 /uL (0-100); Basophils Percent Auto 0.3 % (0-2); Eosinophils Absolute Auto 0 /uL (0-450); Eosinophils Percent Auto 0.3 % (2-4); Hemoglobin 9.5 g/dL (12.0-16.0); Lymphocytes Absolute Auto 1400 /uL (1100-4500); Lymphocytes Percent Auto 11.7 % (25-40); Mean Corpuscular HGB Conc 32.9 % (30-36); Mean Corpuscular Volume 91.2 fL (80-100); Monocytes Absolute Auto 1000 /uL (0-900); Neutrophils Absolute Auto 9800 /uL (1500-7000); Neutrophils Percent Auto 79.7 % (50-75); Platelet Count 212 X10^3/uL (150-400); Red Blood Cell Count 3.18 X10^6/uL (4.0-5.2); Red Cell Distribution Width 13.1 % (11.6-14.8); White Blood Cell Count 12.4 X10^3/uL (4.5-11.0)
[2021-06-28 03:49] LABS: BUN Creatinine Ratio 20.2 (6-22); Blood Urea Nitrogen 24 mg/dL (7-17); Calcium 7.6 mg/dL (8.4-10.2); Carbon Dioxide 33 mmol/L (22-32); Chloride 102 mmol/L (98-107); Estimated Glomerular Filt Rate 43.1 mL/min (>60); Glucose 102 mg/dL (80-110); HEMOLYSIS < 15 (0-50); Magnesium 2.2 mg/dL (1.6-2.3); Potassium 3.6 mmol/L (3.4-5.1); Sodium 134 mmol/L (137-145)
[2021-06-28] MEDS: SODIUM CHLORIDE 0.9% 1,000 ML 125 ML IV (04:18)
[2021-06-28 04:21] LABS: Appearance Urine UA CLEAR; Bilirubin Urine UA NEGATIVE (NEGATIVE); Color Urine UA YELLOW; Glucose Urine UA NEGATIVE (Negative); Ketones Urine UA NEGATIVE (NEGATIVE); Leukocyte Esterase Urine UA NEGATIVE (NEGATIVE); Nitrite Urine UA NEGATIVE (Negative); Occult Blood Urine UA TRACE-INTACT (Negative); Protein Urine UA NEGATIVE (Negative); Specific Gravity Urine UA <=1.005 (1.000-1.035); Urobilinogen Urine UA 0.2 E.U./dL (0.2)
[2021-06-28 04:23] LABS: pH Urine UA 6.5 (4.5-8.0)
--- NOTE | 2021-06-28 04:43 | PC.NURSE ---
Addendum entered by Sandra Sanderson R.N. 06/28/21 07:21: Patient transferred to ICU. Original Note: Patient had temp of 100.6, tylenol administered, tylenol minimally effective reducing temp to 100.3. Applied cool wash cloths to forehead and groin bringing temp to 97.1. Noted Blood pressure 81/33, MAP 46 and patient desatted to 88% RA. Placed on 2 L oxygen bringing oxygen to 100%. Given narcan x1, pt became more alert but BP remained low. Contacted Dr Robles by answering service x 2 and cell phone x 1, leaving a message on his cell phone. Received no call back from Dr. Robles and consulted with MATTI King. Ordered NS bolus x1 500 mL. Inserted 2 new IVs, original IV failed. Bladder scan >500 mL. Rec'd order for stat labs and Fcath. Labs drawn and FCath inserted, patent and draining.
[2021-06-28 04:49] LABS: Bacteria Urine None Seen; Culture Indicated Urine Cult Not Indicated; RBC Urine 0-1/HPF (0-5/HPF); WBC Urine None Seen (0-5/HPF)
--- NOTE | 2021-06-28 05:29 | PM.CN.EICU ---
History of Present Illness Consult details Chief complaint: TLIF :: This patient was seen via real time interactive two-way audiovisual telecommunication. Narrative: Ms. Ibrahim is a 86 year old female with history of hypertension and hypothyroidism who underwent transforaminal lumbar interbody fusion on 06/26/2021 and found to be hypotensive earlier this morning. She was bolus 2 liters NS. BP initially improved but dipped back down to the 80/50s. She was transferred to ICU for further management. Labs notable for Hb 9.8 and negative procalcitonin. Patient is awake but confuse which is not her baseline. Ordered 1 liter LR bolus and started on levophed to titrate for MAP goal > 65. [facility] Medical History Actinic keratosis Arm fracture, left (04/2021) Arthritis Back disorder Breast cancer Expressive aphasia Hearing loss HTN (hypertension) Hyponatremia Hypothyroid Insomnia Lyme disease Migraine Rheumatic fever without heart involvement TIA (transient ischemic attack) Surgical History History of carpal tunnel repair History of hysterectomy History of lumbar laminectomy History of total right hip replacement (06/09/20) Hx of bilateral cataract extraction Hx of repair of left rotator cuff Hx of tonsillectomy Status post bunionectomy Status post hysterectomy Status post knee surgery Status post partial mastectomy Family History Father Stroke Grandfather Stroke Social History household members: spouse Smoking Status: Never smoker alcohol intake: current (beer with dinner daily) Current Medications Current Medications Medications: Home Medications magnesium oxide 400 mg PO Q DAY #0 01/08/16 [History Confirmed 06/26/21] alprazolam 0.25 mg tablet 0.25 mg PO BEDTIME 06/03/20 [History Confirmed 06/11/21] duloxetine 60 mg capsule,delayed release 60 mg PO BID 06/03/20 [History Confirmed 06/11/21] ibuprofen 200 mg tablet 200 mg PO TID PRN 06/03/20 [History Confirmed 06/26/21] liothyronine 25 mcg tablet 25 mcg PO DAILY 06/03/20 [History Confirmed 06/26/21] melatonin 5 mg tablet 5 mg PO BEDTIME 06/03/20 [History Confirmed 06/26/21] pramipexole 0.25 mg tablet 0.125 mg PO BID 06/03/20 [History Confirmed 06/26/21] oxycodone 5 mg tablet 5 mg PO Q4-6H PRN #50 tab 07/08/20 [Rx Confirmed 06/26/21] aspirin 81 mg tablet,delayed release (Aspirin Low Dose) 81 mg PO BEDTIME 06/11/21 [History Confirmed 06/11/21] levothyroxine 25 mcg tablet 12.5 mcg PO DAILY 06/11/21 [History Confirmed 06/26/21] metoprolol succinate 25 mg tablet,extended release 24 hr 25 mg PO DAILY 06/11/21 [History Confirmed 06/26/21] potassium chloride 10 mEq tablet,extended release 20 meq PO DAILY 06/11/21 [History Confirmed 06/26/21] torsemide 20 mg tablet 40 mg PO DAILY 06/11/21 [History Confirmed 06/11/21] Visit Medications (administered) Generic Name Dose Route Start Last Admin Trade Name Freq PRN Reason Stop Dose Admin Acetaminophen 650 mg 06/28/21 02:15 06/28/21 02:26 Acetaminophen 325 Mg Tablet PO 650 mg Q6HR THOR Administration Alprazolam 0.25 mg 06/26/21 21:00 06/27/21 20:46 Alprazolam 0.25 Mg Tablet PO 0.25 mg BEDTIME THOR Administration Docusate Sodium 100 mg 06/26/21 21:00 06/27/21 20:46 Docusate 100 Mg Capsule PO 100 mg BID THOR Administration Duloxetine HCl 60 mg 06/26/21 21:00 06/27/21 20:47 Duloxetine 30 Mg Capsule PO 60 mg BID THOR Administration Hydroxyzine Pamoate 25 mg 06/26/21 15:27 06/28/21 00:40 Hydroxyzine Pamoate 25 Mg Capsule PO 25 mg Q4HR PRN Administration Nausea And Vomiting Sodium Chloride 1,000 mls @ 125 mls/hr 06/28/21 03:45 06/28/21 04:18 Normal Saline 0.9% IV 125 mls/hr CONT THOR Administration Levothyroxine Sodium 12.5 mcg 06/27/21 06:00 06/27/21 06:16 Levothyroxine 25 Mcg Tablet PO 12.5 mcg DAILY@0600 THOR Administration Liothyronine Sodium 25 mcg 06/27/21 12:00 06/27/21 12:40 Liothyronine 25 Mcg Tablet PO 25 mcg 1200 THOR Administration Magnesium Oxide 400 mg 06/27/21 09:00 06/27/21 09:16 Magnesium Oxide 400 Mg Tablet PO 400 mg DAILY THOR Administration Melatonin 6 mg 06/26/21 21:00 06/27/21 20:47 Melatonin 3 Mg Tablet PO 6 mg BEDTIME THOR Administration Metoprolol Succinate 25 mg 06/27/21 09:00 06/27/21 09:16 Metoprolol Er 25 Mg Tablet PO 25 mg DAILY THOR Administration Oxycodone HCl 5 mg 06/26/21 15:27 06/28/21 00:37 Oxycodone Ir 5 Mg Tablet PO 5 mg Q4H PRN Administration Pain, Moderate (4-6) Potassium Chloride 20 meq 06/27/21 09:00 06/27/21 09:17 Potassium Chloride 10 Meq Tab PO 20 meq DAILY THOR Administration Pramipexole Dihydrochloride 0.125 mg 06/26/21 21:00 06/27/21 20:46 Pramipexole 0.25 Mg Tablet PO 0.125 mg BID THOR Administration Sennosides 17.2 mg 06/26/21 21:00 06/27/21 20:46 Sennosides 8.6 Mg Tablet PO 17.2 mg BEDTIME THOR Administration Torsemide 40 mg 06/27/21 09:00 06/27/21 09:15 Torsemide 10 Mg Tablet PO 40 mg DAILY THOR Administration Exam Vital Signs (past 8 hours): - 06/28/21 00:00 06/28/21 04:00 Temperature 100.2 F H 99.2 F Pulse Rate 86 72 Respiratory Rate 20 20 Blood Pressure 90/36 L 87/44 L Pulse Oximetry 99 100 Oxygen Delivery Method Nasal Cannula Oxygen Flow Rate 1.5 Narrative Exam Narrative: Appears nontoxic and following commands. Objective Labs Result Diagrams: 06/28/21 03:30 06/28/21 03:30 Labs: Laboratory Results - last 24 hr 06/27/21 06/28/21 06/28/21 06:10 03:30 03:30 WBC 12.4 H RBC 3.18 L Hgb 11.4 L 9.5 L Hct 34.5 L 29.0 L MCV 91.2 MCH 30.0 MCHC 32.9 RDW 13.1 Plt Count 212 Neut % (Auto) 79.7 H Lymph % (Auto) 11.7 L [place] % (Auto) 8.0 Eos % (Auto) 0.3 L Baso % (Auto) 0.3 Neut # (Auto) 9800 H Lymph # (Auto) 1400 [place] # (Auto) 1000 H Eos # (Auto) 0 Baso # (Auto) 0 Sodium 134 L Potassium 3.6 Chloride 102 Carbon Dioxide 33 H BUN 24 H Creatinine 1.19 H Estimated GFR 43.1 L BUN/Creatinine Ratio 20.2 Glucose 102 Calcium 7.6 L Magnesium 2.2 Procalcitonin Urine Color Urine Appearance Urine pH Ur Specific [place] Urine Protein Urine Glucose (UA) Urine Ketones Urine Occult Blood Urine Nitrate Urine Bilirubin Urine Urobilinogen Ur Leukocyte Esterase Urine RBC Urine WBC Urine Bacteria Ur Culture Indicated? 06/28/21 06/28/21 03:30 04:19 WBC RBC Hgb Hct MCV MCH MCHC RDW Plt Count Neut % (Auto) Lymph % (Auto) [place] % (Auto) Eos % (Auto) Baso % (Auto) Neut # (Auto) Lymph # (Auto) [place] # (Auto) Eos # (Auto) Baso # (Auto) Sodium Potassium Chloride Carbon Dioxide BUN Creatinine Estimated GFR BUN/Creatinine Ratio Glucose Calcium Magnesium Procalcitonin 0.10 Urine Color Yellow Urine Appearance Clear Urine pH 6.5 Ur Specific [place] <=1.005 Urine Protein Negative Urine Glucose (UA) Negative Urine Ketones Negative Urine Occult Blood Trace-intact Urine Nitrate Negative Urine Bilirubin Negative Urine Urobilinogen 0.2 Ur Leukocyte Esterase Negative Urine RBC 0-1/hpf Urine WBC None seen Urine Bacteria None seen Ur Culture Indicated? Cult not indicated Assessment & Plan Assessment & Plan narrative: NEURO: # Acute encephalopathy -- Ddx includes delirium vs polypharmacy vs hypoperfusion from shock -- Shock management as below -- DC xanax to decrease risk of delirium -- Early mobility as tolerated -- Minimize pain meds -- Added lidocaine patch # TLIF -- POD 2 -- Minimize sedatives and pain meds -- Added lidocaine patch -- Further management per Dr Johnson RESP: -- On room air -- Encourage IS -- Early mobility as tolerated CVS: # Shock -- Ddx includes hypovolemia as patient is on torsemide. Other ddx include sepsis. No signs of overt bleed to suggest hemorrhagic shock. -- Ordered 1 liter LR bolus -- DC torsemide -- Sepsis workup as below -- Start levophed to titrate for MAP goal > 65 ID: # Severe sepsis -- Met 2/4 SIRS w/ encephlaopathy -- Unknown source of infection -- Check lactic acid -- Cont aggressive crystalloid resuscitation -- Start vancomycin/cefepime -- Check blood and urine culture -- Check CXR -- Follow up cx data ENDO: -- Goal BS < 180 # Hx of hypothyroidism -- On T3/T4 therapy D/w Tricia King and RN at bedside. Time Spent With Patient Critical Care time: I spent a total of [] minutes of critical care time on this patient's care today; this time is exclusive of procedural time.
--- NOTE | 2021-06-28 05:32 | DI.RAD.S_ITS ---
PROCEDURE: XR CHEST 1V INDICATIONS: sepsis workup TECHNIQUE: One view of the chest was acquired. COMPARISON: [facility], CR, XR CHEST FOR PICC 1V, 06/28/2021, 8:01. [facility], CR, XR CHEST 1 VIEW, 10/10/2020, 17:35. [facility], CR, XR CHEST FOR PICC 1V, 07/05/2020, 13:03. FINDINGS: Surgical changes and devices: A right-sided PICC line is seen, with the tip overlying the mid aspect of the superior vena cava, 3-4 cm above the cavoatrial junction. On this study, the tip is coiled, suggestive involved with the azygos vein. On the subsequently performed study, the tip is been adjusted. Lungs and pleura: Low lung volumes are noted. This causes a crowded appearance to the lung markings and limits evaluation. Generalized interstitial infiltrates are seen. No large pneumothorax or large pleural effusions are seen. Mediastinum: Mediastinal contours appear normal. Heart size is at the upper limits of normal for portable technique. Bones and chest wall: No suspicious bony lesions. Age-appropriate bony degenerative changes are seen. Overlying soft tissues appear unremarkable. IMPRESSION: Mild generalized interstitial infiltrates can be seen. Differential diagnosis includes infection versus fluid overload. The tip of the right-sided PICC line likely involves the azygos vein, which is been adjusted on the subsequently performed chest radiograph. Note: No significant discrepancy from the preliminary report. Dictated by: Jay Manjarrez M.D. on 06/28/2021 at 7:25 Approved by: Jay Manjarrez M.D. on 06/28/2021 at 7:28
[2021-06-28] MEDS: NOREPINEPHRINE BITARTRATE/D5W 4 MG/250 ML PLAST..BAG 30 MG IV (05:51)
[2021-06-28] MEDS: LACTATED RINGERS 1,000 ML 1000 ML IV (06:19)
--- NOTE | 2021-06-28 06:49 | PC.NURSE ---
0510 pt transferred from 225 per bed for low blood pressure requiring Pressor support. LR Bolus initiated to RFA IV and Levophed started at 4mcg/min for SPB 86/50. BP immediately improved to 130/50. Levo decreased to 2mcg/min and maintaining BP at 110/50s Pt is confused to all but name. She was given 1 dose of narcan prior to coming to ICU and BP transiently improved then trended down again. PICC nurse attempting line placement at this time. Lumbar spine dressing dry and intact, abd soft and non tender, pt denies chest pain.
--- NOTE | 2021-06-28 07:47 | DI.RAD.S_ITS ---
PROCEDURE: XR CHEST FOR PICC 1V INDICATIONS: verify PICC placement after repositioning COMPARISON: [facility] With [facility], CR, XR CHEST 1 VIEW, 10/10/2020, 17:35. [facility], CR, XR CHEST 1V, 06/28/2021, 6:59. FINDINGS: PICC was placed by the intravenous therapy team from the right side. Fluoroscopic spot film demonstrates the tip of PICC projecting to the area of the mid superior vena cava, 3-4 cm above the cavoatrial junction. IMPRESSION: Tip of PICC projects to the area of the mid superior vena cava. Dictated by: Jay Manjarrez M.D. on 06/28/2021 at 7:24 Approved by: Jay Manjarrez M.D. on 06/28/2021 at 7:25
[2021-06-28] MEDS: CEFEPIME 1 GM in SODIUM CHLORIDE 0.9% 100 ML 200 ML IV ×2 (07:59→17:15)
[2021-06-28] MEDS: LIDOCAINE PATCH 1 EACH ADH..PATCH TOP (07:59)
[2021-06-28] MEDS: LEVOTHYROXINE 25 MCG TABLET 12.5 MCG PO (08:00)
[2021-06-28] MEDS: LACTATED RINGERS 1,000 ML 125 ML IV ×2 (08:00→18:30)
--- NOTE | 2021-06-28 08:41 | P.PN_ITS ---
Subjective Subjective Interval history: POD# 2 s/p L3-4, L4-5 TLIF. 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 IV fluid boluses given, UA and CXR appear to be normal. Blood cultures pending. Alprazolam d/c'd, lidocaine patch started to help decrease use of opioid analgesia. Griffiths catheter was removed yesterday, but replaced in light of medical issues. On my visit this morning, Larissa is awake and alert and responding appropriately to questions and commands. She is a bit confused by the noises of various alarms in the ICU; thinks the IV alarm is a phone ringing. Complains of incisional back pain that 'felt like a lump' yesterday and is still present but better today. Exam Vital Signs (past 8 hours): - 06/28/21 04:00 06/28/21 05:45 06/28/21 06:00 Temperature 99.2 F 98.7 F 99.2 F Pulse Rate 72 79 66 Respiratory Rate 20 21 24 Blood Pressure 87/44 L 109/87 138/66 Pulse Oximetry 100 100 100 06/28/21 07:00 06/28/21 07:36 Temperature 98.8 F Pulse Rate 79 Respiratory Rate 29 H Blood Pressure 116/56 L Pulse Oximetry 98 98 Oxygen Delivery Method Nasal Cannula Oxygen Flow Rate 0.5 Narrative Exam Narrative: 5/5 strength in hamstrings, quadriceps, dorsiflexors, plantarflexors bilaterally. Sensation to light touch intact throughout lower extremities, though pt states somewhat decreased on left vs right; this was present prior to surgery. Calves soft, compressible, nontender and without palpable cords or masses. Objective Labs Result Diagrams: 06/28/21 03:30 06/28/21 03:30 Labs: Laboratory Results - last 24 hr 06/28/21 06/28/21 06/28/21 03:30 03:30 03:30 WBC 12.4 H RBC 3.18 L Hgb 9.5 L Hct 29.0 L MCV 91.2 MCH 30.0 MCHC 32.9 RDW 13.1 Plt Count 212 Neut % (Auto) 79.7 H Lymph % (Auto) 11.7 L [place] % (Auto) 8.0 Eos % (Auto) 0.3 L Baso % (Auto) 0.3 Neut # (Auto) 9800 H Lymph # (Auto) 1400 [place] # (Auto) 1000 H Eos # (Auto) 0 Baso # (Auto) 0 Sodium 134 L Potassium 3.6 Chloride 102 Carbon Dioxide 33 H BUN 24 H Creatinine 1.19 H Estimated GFR 43.1 L BUN/Creatinine Ratio 20.2 Glucose 102 Calcium 7.6 L Magnesium 2.2 Procalcitonin 0.10 Urine Color Urine Appearance Urine pH Ur Specific [place] Urine Protein Urine Glucose (UA) Urine Ketones Urine Occult Blood Urine Nitrate Urine Bilirubin Urine Urobilinogen Ur Leukocyte Esterase Urine RBC Urine WBC Urine Bacteria Ur Culture Indicated? Nasal Screen MRSA (PCR) 06/28/21 06/28/21 04:19 06:00 WBC RBC Hgb Hct MCV MCH MCHC RDW Plt Count Neut % (Auto) Lymph % (Auto) [place] % (Auto) Eos % (Auto) Baso % (Auto) Neut # (Auto) Lymph # (Auto) [place] # (Auto) Eos # (Auto) Baso # (Auto) Sodium Potassium Chloride Carbon Dioxide BUN Creatinine Estimated GFR BUN/Creatinine Ratio Glucose Calcium Magnesium Procalcitonin Urine Color Yellow Urine Appearance Clear Urine pH 6.5 Ur Specific [place] <=1.005 Urine Protein Negative Urine Glucose (UA) Negative Urine Ketones Negative Urine Occult Blood Trace-intact Urine Nitrate Negative Urine Bilirubin Negative Urine Urobilinogen 0.2 Ur Leukocyte Esterase Negative Urine RBC 0-1/hpf Urine WBC None seen Urine Bacteria None seen Ur Culture Indicated? Cult not indicated Nasal Screen MRSA (PCR) Negative for mrsa [facility] Medical History Actinic keratosis Arm fracture, left (04/2021) Arthritis Back disorder Breast cancer Expressive aphasia Hearing loss HTN (hypertension) Hyponatremia Hypothyroid Insomnia Lyme disease Migraine Rheumatic fever without heart involvement TIA (transient ischemic attack) Surgical History History of carpal tunnel repair History of hysterectomy History of lumbar laminectomy History of total right hip replacement (06/09/20) Hx of bilateral cataract extraction Hx of repair of left rotator cuff Hx of tonsillectomy Status post bunionectomy Status post hysterectomy Status post knee surgery Status post partial mastectomy Family History Father Stroke Grandfather Stroke Social History household members: spouse Smoking Status: Never smoker alcohol intake: current (beer with dinner daily) Assessment & Plan Post-op Postoperative Procedures: Procedures Operation Date: 06/26/21 09:15 Actual Procedure Side Surgeon p L3-4, L4-5 TLIF w. posterior instrumentation - Robot Mark Anthony Robles MD Postoperative day: 2 Postoperative status narrative: POD# 2 s/p 2-level TLIF. Postoperative course c/b shock. Appreciate Ms King and Dr Hall's care and help with this patient. Will await further workup results and recommendations. Postoperative plan narrative: Continue to mobilize with PT. Shock management per ICU team. Quality VTE Deep Vein Thrombosis/Pulmonary Embolism Present on Admission: No
[2021-06-28] MEDS: DULOXETINE 30 MG CAPSULE 60 MG PO ×2 (09:18→20:45)
[2021-06-28] MEDS: POTASSIUM CHLORIDE 10 MEQ TAB 20 MEQ PO (09:18)
[2021-06-28] MEDS: PANTOPRAZOLE 40 MG VIAL IV (09:20)
[2021-06-28] MEDS: DOCUSATE 100 MG CAPSULE PO ×2 (09:22→20:44)
[2021-06-28] MEDS: MAGNESIUM OXIDE 400 MG TABLET PO (09:22)
[2021-06-28] MEDS: VANCOMYCIN 1,000 MG/200 ML PIGGYBACK 200 MG IV (09:22)
[2021-06-28] MEDS: PRAMIPEXOLE 0.25 MG TABLET 0.125 MG PO ×2 (09:25→20:45)
--- NOTE | 2021-06-28 09:42 | PM.ICURNDS ---
- :: This patient was seen via real time interactive two-way audiovisual telecommunication. Note: Completed ICU multidisplinary rounds. Off levophed. On LR 125 cc/hr. Blood cx sent and started on vanc/cefepime. Follow cx data and deescalate abx after 48 hours if cx is negative. Minimize sedatives and continue frequent reorientation to prevent delirium. D/w RN and RT at bedside.
[2021-06-28 10:10] LABS: Lactate (Lactic Acid) 0.8 mmol/L (0.7-2.1)
--- NOTE | 2021-06-28 10:39 | PM.PN.1 ---
Exam Vital Signs (past 8 hours): - 06/28/21 04:00 06/28/21 05:45 06/28/21 06:00 Temperature 99.2 F 98.7 F 99.2 F Pulse Rate 72 79 66 Respiratory Rate 20 21 24 Blood Pressure 87/44 L 109/87 138/66 Pulse Oximetry 100 100 100 06/28/21 07:00 06/28/21 07:36 06/28/21 08:00 Temperature 98.8 F Pulse Rate 79 71 Respiratory Rate 29 H 19 Blood Pressure 116/56 L 113/58 L Pulse Oximetry 98 98 95 06/28/21 09:00 06/28/21 09:15 06/28/21 10:00 Temperature Pulse Rate 72 70 Respiratory Rate 19 23 Blood Pressure 107/59 L 107/59 L 111/54 L Pulse Oximetry 92 93 Oxygen Delivery Method Nasal Cannula Oxygen Flow Rate 1 Objective Labs Result Diagrams: 06/28/21 03:30 06/28/21 03:30 Labs: Laboratory Results - last 24 hr 06/28/21 06/28/21 06/28/21 03:30 03:30 03:30 WBC 12.4 H RBC 3.18 L Hgb 9.5 L Hct 29.0 L MCV 91.2 MCH 30.0 MCHC 32.9 RDW 13.1 Plt Count 212 Neut % (Auto) 79.7 H Lymph % (Auto) 11.7 L [place] % (Auto) 8.0 Eos % (Auto) 0.3 L Baso % (Auto) 0.3 Neut # (Auto) 9800 H Lymph # (Auto) 1400 [place] # (Auto) 1000 H Eos # (Auto) 0 Baso # (Auto) 0 Sodium 134 L Potassium 3.6 Chloride 102 Carbon Dioxide 33 H BUN 24 H Creatinine 1.19 H Estimated GFR 43.1 L BUN/Creatinine Ratio 20.2 Glucose 102 Lactate Calcium 7.6 L Magnesium 2.2 Procalcitonin 0.10 Urine Color Urine Appearance Urine pH Ur Specific [place] Urine Protein Urine Glucose (UA) Urine Ketones Urine Occult Blood Urine Nitrate Urine Bilirubin Urine Urobilinogen Ur Leukocyte Esterase Urine RBC Urine WBC Urine Bacteria Ur Culture Indicated? Nasal Screen MRSA (PCR) 06/28/21 06/28/21 06/28/21 04:19 06:00 09:30 WBC RBC Hgb Hct MCV MCH MCHC RDW Plt Count Neut % (Auto) Lymph % (Auto) [place] % (Auto) Eos % (Auto) Baso % (Auto) Neut # (Auto) Lymph # (Auto) [place] # (Auto) Eos # (Auto) Baso # (Auto) Sodium Potassium Chloride Carbon Dioxide BUN Creatinine Estimated GFR BUN/Creatinine Ratio Glucose Lactate 0.8 Calcium Magnesium Procalcitonin Urine Color Yellow Urine Appearance Clear Urine pH 6.5 Ur Specific [place] <=1.005 Urine Protein Negative Urine Glucose (UA) Negative Urine Ketones Negative Urine Occult Blood Trace-intact Urine Nitrate Negative Urine Bilirubin Negative Urine Urobilinogen 0.2 Ur Leukocyte Esterase Negative Urine RBC 0-1/hpf Urine WBC None seen Urine Bacteria None seen Ur Culture Indicated? Cult not indicated Nasal Screen MRSA (PCR) Negative for mrsa [facility] Medical History Actinic keratosis Arm fracture, left (04/2021) Arthritis Back disorder Breast cancer Expressive aphasia Hearing loss HTN (hypertension) Hyponatremia Hypothyroid Insomnia Lyme disease Migraine Rheumatic fever without heart involvement TIA (transient ischemic attack) Surgical History History of carpal tunnel repair History of hysterectomy History of lumbar laminectomy History of total right hip replacement (06/09/20) Hx of bilateral cataract extraction Hx of repair of left rotator cuff Hx of tonsillectomy Status post bunionectomy Status post hysterectomy Status post knee surgery Status post partial mastectomy Family History Father Stroke Grandfather Stroke Social History household members: spouse Smoking Status: Never smoker alcohol intake: current (beer with dinner daily) Assessment & Plan Assessment & Plan narrative: POD#2 s/p L3-5 TLIF. Pt progressed well on POD#1 until the evening where patient developed hypotension. Patient has low grade fever, wound is clean and dry, patient is motor/sensory intact on exam with altered mental status. Patient is currently stable with BP 111/54. Patient has a PICC line in place. There's bleeding and blood pooling under the occlusive dressing. I spoke to patient's nurse to clean the PICC site and change the dressing and notify PICC placing personnel for additional instruction. I spoke to medicine team and they are doing a sepsis work up with pending blood culture and negative urine test so far. Given the proximity of surgery timing, I do not think surgical site infection is related to patient's hypotension. Along with patient's altered mental status, I feel her episode of hypotension is related to medications and sedation1. Currently her pain medication and muscle relaxant is on hold in order to reverse the adverse effect. Will continue follow lab results on patient's work up for sepsis. I appreciate medicine team's assistance in managing this patient's medical condition while she's recovering from surgery. We will continue monitor patient's recovery and surgical care. Time Spent With Patient Critical Care time: I spent a total of [] minutes of critical care time on this patient's care today; this time is exclusive of procedural time. Quality VTE Deep Vein Thrombosis/Pulmonary Embolism Present on Admission: No
--- NOTE | 2021-06-28 10:50 | PT-IP ANOTE ---
Checked with RN and pt was moved to ICU overnight, requiring pressor support. Pt sleeping now after restless night and RN requests PT hold tx until later today. Will follow up as staffing allows.
[2021-06-28] MEDS: LIOTHYRONINE 25 MCG TABLET PO (12:38)
--- NOTE | 2021-06-28 15:05 | PT.IPTN ---
Current Diagnoses Acute posthemorrhagic anemia (06/26/21) Other hypotension (06/26/21) Spondylolisthesis, lumbar region (06/26/21) Spinal stenosis, lumbar region with neurogenic claudication (06/26/21) Postlaminectomy syndrome, not elsewhere classified (06/26/21) Arthrodesis status (06/26/21) Surgery Performed Operation Date: 06/26/21 09:15 Actual Procedures p L3-4, L4-5 TLIF w. posterior instrumentation - Robot - Mark Anthony Robles MD Physical Therapy Treatment Note M2 PT-IP Current Condition Start: 06/27/21 13:36 Freq: NEEDED Status: Active Protocol: Document 06/27/21 12:01 AB (Rec: 06/27/21 13:52 AB [email or web address]) Physical Therapy Current Condition Current Condition Evaluation Date 06/27/21 Treatment Diagnosis s/p L3-4, L4-5 fusion/lami; difficulty in walking Onset Date 06/26/21 M3 PT-IP Subjective Start: 06/27/21 13:36 Freq: NEEDED Status: Active Protocol: Document 06/28/21 15:05 AW (Rec: 06/28/21 16:09 AW [id number]) Subjective Physical Therapy Visit Type Type Treatment Note Visit Start Time 14:30 Visit Stop Time 15:05 Total Visit Minutes 35 Number of BEDSPREAD CUTTER Visits 0 Physical Therapy Visit Comments Patient Comments agreeable to do PT Therapy Pain Assessment Pain When Pain Assessed During Mobility Pain Present Pain Present Denied Pain Location left foot - arch Scale Used not quantified M4 PT-IP Mobility and Gait Start: 06/27/21 13:36 Freq: NEEDED Status: Active Protocol: Document 06/28/21 15:05 AW (Rec: 06/28/21 16:09 AW [id number]) PT-Bed Mobility Assessment Rolling Type of Rolling Log Rolling,Roll to Right Supine to Sit Supine to Sit Minimal Assistance,Bedrails Scooting Scooting to Edge of Bed Minimal Assistance PT-Transfer Assessment Sit to and From Stand Sit to and from Stand Contact Guard Assistance,1 Person Assistance,Use of Upper Extremities Equipment Transfer Assistive Device Gait Belt,Front Wheeled Walker Orthotic/Prosthetic Devices or Brace: No Transfers Transfer Destination Chair Transfer Technique Pt ambulated w/ FWW Transfer Ability Level of Assist Minimal Assistance,1 Person Assistance,Use of Upper Extremities Comments Mobility Comments Pt slept a lot today after being moved suddenly to ICU last night for hypotension and needing pressor support. She did rouse easily as PT arrived and BP was 111/55 HR 77. PT educated pt on post-op precautions. Pt agreed to get up, rolling to her right side and completing SL to sit min A x 1. Pt denied any symptoms and agreed to stand. She stood to FWW CGA and used FWW for support as she marched in place. She reported and odd sensation that she had trouble describing in her left foot plantar surface and appeared slightly ataxic while marching . She sat and PT palpated her foot. Pt denied tenderness at lateral malleolus in spite of palpable tendon subluxation. She denied tenderness at bony landmarks including navicular and 5th MT tubercle. She felt she was having trouble controlling her arch. Pt stood again and walked around the room with FWW, stopping at the sink to brush her teeth. She was able to maintain precautions with min cues and stood >8 minutes total with FWW for balance support and SBA. Pt then transferred to the chair min assist. She was positioned with legs elevated and warm blankets. BP was 113/ 53 HR 74. Gait Assessment Gait Gait Assistance Required: Contact Guard Assist,1 Person Assist Distance (Feet) 35 Assistive Devices Assistive Device Gait Belt,Front Wheeled Walker Orthotic/Prosthetic Devices or Brace: No Gait Deviations General Gait Pattern Antalgic,Decreased Stride Length,Decreased Feet Clearance Factors Limiting Gait Function Factors Limiting Gait Function Decreased Activity Tolerance, Decreased Strength,Difficulty Following Directions,Limited Range of Motion,Pain,Poor Balance,Poor Safety Awareness Comments Gait Comments Pt's left foot sensation disturbance improved with distance and time. PT-Balance Assessment Sitting Balance and Reactions Static Sitting Balance Ability Good Dynamic Sitting Balance Ability Good Standing Balance and Reactions Static Standing Balance Ability Fair Dynamic Standing Balance Ability Fair Device Used FWW M5 PT-IP Objective Assessments Start: 06/27/21 13:36 Freq: NEEDED Status: Active Protocol: Document 06/27/21 12:01 AB (Rec: 06/27/21 13:52 AB [email or web address]) Orientation Orientation/Cognition Level of Alertness Confusional State Orientation Name Language Function Ability Expressive Aphasia,Receptive Aphasia,Word Finding Difficulties,Hard of Hearing Safety Awareness Decreased Safety Awareness Gross Range of Motion Lower Extremity ROM Assessment Within Functional Limits Strength Lower Extremity Strength Hip 3+/5 Knee 4-/5 Sensation Assessment Sensation Gross Sensation WNL Muscle Tone Muscle Tone WNL Yes M6 PT-IP Treatment Start: 06/27/21 13:36 Freq: NEEDED Status: Active Protocol: Document 06/28/21 15:05 AW (Rec: 06/28/21 16:09 AW [id number]) Physical Therapy Treatment Exercises Exercises Ankle Pumps Education Education Provided Precautions,Safety M7 PT-IP Assessment and Plan Start: 06/27/21 13:36 Freq: NEEDED Status: Active Protocol: Document 06/28/21 15:05 AW (Rec: 06/28/21 16:09 AW [id number]) PT Summary Assessment and Plan Summary Progress Towards Goals Progressing Toward Goals Assessment Summary Pt required pressor support overnight and has been sleeping most of the day. She tolerated bed mobility and walking/standing >8 minutes today with stable VS. She states her left foot arch feels unstable. Her daughter states pt's communication is ~ 75% of normal at this time. Pt has history of aphasia. Plan to conduct caregiver training in the morning. Pt's daughter is rooming in. Goals Bed Mobility Goal Independent Transfer Goal Independent,Front Wheeled Walker Gait Goal Independent,Front Wheel Walker Gait Distance 200 Other Goals improve ambulation using 4WW 200 ft Days to Meet Goals 10 Frequency of Treatment Frequency Of Treatment Twice a Day Treatment Plan Physical Therapy Treatment Plan Bed Mobility Training,Transfer Training,Gait Training, Therapeutic Exercise,Balance Retraining,Post Op Education, Discharge Planning,Hot or Cold Pack,Neuromuscular Re-ed, Coordination Retraining,Manual Therapy Other Recommendations and Next Treatment monitor BP; assess gait with Focus 4WW to determine if pt needs FWW for home. Precautions Lumbar Precautions Log Roll,No Twisting,Limit Bending,Lifting Restriction of 10 lbs,Gait Belt above Incisional Area Recommendations To Nursing Amount of Assist Needed 1 Person Assist Discharge Recommendations PT Discharge Recommendations Home with 03/01 Assist Available,Home Health Transportation Needs at Discharge Private Vehicle
--- NOTE | 2021-06-28 18:08 | PC.NURSE ---
Day Shift Note Pt in the midst of receiving PICC line when care assumed at 0700. CXR to confirm placement taken and critical result received from radiologist requiring adjustment of PICC line - reported to IV PICC line nurse who made changes to line placement (see charting from IV nurse). 2nd CXR taken and IV line nurse adjusted PICC line once more (see her charting) and then line cleared to use. Levophed turned off at 0754, pt's BP stable throughout shift and pt subsequently downgraded to acute care status. Pt confused and oriented to self only but mentation improved this afternoon, oriented to self and place and exhibits less forgetfulness. PICC insertion site noted to be bleeding and pooling under dressing, leaking out onto bed at 0930. Pressure dressing (gauze and coban) applied. Dressing changed, site cleansed, and dressing replaced. Pt up to chair with PT, denies pain, lidocaine patch in place to right lower back. Dressing C/D/I. Daughter, Patrizia, at bedside.
[2021-06-28] MEDS: SENNOSIDES 8.6 MG TABLET 17.2 MG PO (20:44)
[2021-06-28] MEDS: MELATONIN 3 MG TABLET 6 MG PO (20:45)
--- NOTE | 2021-06-28 21:17 | PC.NURSE ---
Pt noted to have some word finding difficulty, otherwise oriented x4, MAEW, good strength and sensation in all extremities. Family at bedside states that she had the same aphasia type symptoms after a previous surgery. Findings reported to Vinod King NP.
[2021-06-29] VITALS: BP 140/62; PULSE 89; RESP 21; TEMP 36.9; O2SAT 96
[2021-06-29] MEDS: SODIUM CHLORIDE 0.9% 250 ML 21 ML IV (02:00)
[2021-06-29 04:00] VITALS: BP 132/63; PULSE 85; RESP 17; TEMP 36.4; O2SAT 98
[2021-06-29 04:51] LABS: Add Manual Diff / Slide Review NO; Basophils Absolute Auto 0 /uL (0-100); Basophils Percent Auto 0.4 % (0-2); Eosinophils Absolute Auto 200 /uL (0-450); Eosinophils Percent Auto 2.8 % (2-4); Hematocrit 30.8 % (36-46); Hemoglobin 10.3 g/dL (12.0-16.0); Lymphocytes Absolute Auto 1400 /uL (1100-4500); Mean Corpuscular HGB Conc 33.5 % (30-36); Mean Corpuscular Hemoglobin 30.3 PG (26-34); Mean Corpuscular Volume 90.7 fL (80-100); Monocytes Absolute Auto 800 /uL (0-900); Neutrophils Absolute Auto 6000 /uL (1500-7000); Neutrophils Percent Auto 70.8 % (50-75); Platelet Count 226 X10^3/uL (150-400); Red Cell Distribution Width 13.3 % (11.6-14.8); White Blood Cell Count 8.5 X10^3/uL (4.5-11.0)
[2021-06-29 04:59] LABS: Alanine Aminotransferase 21 IU/L (<35); Albumin 2.7 g/dL (3.5-5.0); Alkaline Phosphatase 98 U/L (38-126); Aspartate Aminotransferase 61 IU/L (14-36); BUN Creatinine Ratio 17.6 (6-22); Bilirubin Total 0.6 mg/dL (0.2-1.3); Blood Urea Nitrogen 16 mg/dL (7-17); Calcium 8.1 mg/dL (8.4-10.2); Carbon Dioxide 30 mmol/L (22-32); Chloride 107 mmol/L (98-107); Estimated Glomerular Filt Rate 58.8 mL/min (>60); Globulin 2.6 g/dL (1.7-4.1); Glucose 100 mg/dL (80-110); HEMOLYSIS < 15 (0-50); Potassium 3.6 mmol/L (3.4-5.1); Sodium 135 mmol/L (137-145); Total Protein 5.3 g/dL (6.3-8.2)
[2021-06-29] MEDS: CEFEPIME 1 GM in SODIUM CHLORIDE 0.9% 100 ML 200 ML IV (05:12)
[2021-06-29] MEDS: ACETAMINOPHEN 325 MG TABLET 650 MG PO ×2 (05:12→11:47)
[2021-06-29 05:21] LABS: Procalcitonin 0.09 ng/mL (<0.5)
[2021-06-29] MEDS: LEVOTHYROXINE 25 MCG TABLET 12.5 MCG PO (06:08)
[2021-06-29] MEDS: OXYCODONE IR 5 MG TABLET PO ×2 (06:26→15:49)
[2021-06-29 08:00] VITALS: BP 147/67; PULSE 86; RESP 18; TEMP 36.4; O2SAT 98
--- NOTE | 2021-06-29 09:29 | PT.IPTN ---
Current Diagnoses Acute posthemorrhagic anemia (06/26/21) Other hypotension (06/26/21) Spondylolisthesis, lumbar region (06/26/21) Spinal stenosis, lumbar region with neurogenic claudication (06/26/21) Postlaminectomy syndrome, not elsewhere classified (06/26/21) Arthrodesis status (06/26/21) Surgery Performed Operation Date: 06/26/21 09:15 Actual Procedures p L3-4, L4-5 TLIF w. posterior instrumentation - Robot - Mark Anthony Robles MD Physical Therapy Treatment Note M2 PT-IP Current Condition Start: 06/27/21 13:36 Freq: NEEDED Status: Active Protocol: Document 06/27/21 12:01 AB (Rec: 06/27/21 13:52 AB [email or web address]) Physical Therapy Current Condition Current Condition Evaluation Date 06/27/21 Treatment Diagnosis s/p L3-4, L4-5 fusion/lami; difficulty in walking Onset Date 06/26/21 M3 PT-IP Subjective Start: 06/27/21 13:36 Freq: NEEDED Status: Active Protocol: Document 06/29/21 08:30 AMB (Rec: 06/29/21 09:27 AMB [id number]) Subjective Physical Therapy Visit Type Type Treatment Note Visit Start Time 08:20 Visit Stop Time 09:00 Total Visit Minutes 40 Physical Therapy Visit Comments Patient Comments Pt is in bed with daughter in room, she states she does have back pain but it is getting better, denies lightheadedness or dizziness M4 PT-IP Mobility and Gait Start: 06/27/21 13:36 Freq: NEEDED Status: Active Protocol: Document 06/29/21 08:30 AMB (Rec: 06/29/21 09:27 AMB [id number]) PT-Bed Mobility Assessment Rolling Type of Rolling Log Rolling,Roll to Right Level of Assist Standby Assistance Supine to Sit Supine to Sit Minimal Assistance,Bedrails Scooting Scooting to Edge of Bed Minimal Assistance PT-Transfer Assessment Sit to and From Stand Sit to and from Stand Contact Guard Assistance,1 Person Assistance,Use of Upper Extremities Equipment Transfer Assistive Device Gait Belt,Front Wheeled Walker Orthotic/Prosthetic Devices or Brace: No Transfers Transfer Destination Chair Transfer Technique Pt ambulated w/ FWW Transfer Ability Level of Assist Minimal Assistance,1 Person Assistance,Use of Upper Extremities Comments Mobility Comments Pt's BP was 160/63 in supine with HOB raised, did drop to 133/60 when moving from supine to sit but pt was asymptomatic. Did have moderate back pain with rolling and scooting. Reviewed precautions, pt was having difficulty recounting precautions but pt's daughter was able to remember them well . Sit to stand improved after gait training. Gait Assessment Gait Gait Assistance Required: Contact Guard Assist,1 Person Assist Distance (Feet) 40 Assistive Devices Assistive Device Gait Belt,Front Wheeled Walker Orthotic/Prosthetic Devices or Brace: No Gait Deviations General Gait Pattern Antalgic,Decreased Stride Length,Decreased Feet Clearance Factors Limiting Gait Function Factors Limiting Gait Function Decreased Activity Tolerance, Decreased Strength,Difficulty Following Directions,Limited Range of Motion,Pain,Poor Balance,Poor Safety Awareness Comments Gait Comments Pt felt like feet were equal today. After gait training set up chair and left pt in chair eating breakfast with daughter. Told daughter to use call light when pt was ready to transfer back to bed. PT-Balance Assessment Sitting Balance and Reactions Static Sitting Balance Ability Good Dynamic Sitting Balance Ability Good Standing Balance and Reactions Static Standing Balance Ability Fair Dynamic Standing Balance Ability Fair Device Used FWW M5 PT-IP Objective Assessments Start: 06/27/21 13:36 Freq: NEEDED Status: Active Protocol: Document 06/27/21 12:01 AB (Rec: 06/27/21 13:52 AB [id number]) Orientation Orientation/Cognition Level of Alertness Confusional State Orientation Name Language Function Ability Expressive Aphasia,Receptive Aphasia,Word Finding Difficulties,Hard of Hearing Safety Awareness Decreased Safety Awareness Gross Range of Motion Lower Extremity ROM Assessment Within Functional Limits Strength Lower Extremity Strength Hip 3+/5 Knee 4-/5 Sensation Assessment Sensation Gross Sensation WNL Muscle Tone Muscle Tone WNL Yes M6 PT-IP Treatment Start: 06/27/21 13:36 Freq: NEEDED Status: Active Protocol: Document 06/29/21 08:30 AMB (Rec: 06/29/21 09:27 AMB [id number]) Physical Therapy Treatment Education Education Provided Precautions,Safety M7 PT-IP Assessment and Plan Start: 06/27/21 13:36 Freq: NEEDED Status: Active Protocol: Document 06/29/21 08:30 AMB (Rec: 06/29/21 09:27 AMB [id number]) PT Summary Assessment and Plan Summary Assessment Summary Pt required [place] for mobility and did to retain precautions well. But daughter is very supportive and was familiar with pt's precations. No dizziness or lightheadedness despite 30 point drop in systolic in BP with sit to stand. Did have mild back pain with rolling and sit to stand. Goals Bed Mobility Goal Independent Transfer Goal Independent,Front Wheeled Walker Gait Goal Independent,Front Wheel Walker Gait Distance 200 Other Goals improve ambulation using 4WW 200 ft Days to Meet Goals 10 Frequency of Treatment Frequency Of Treatment Twice a Day Treatment Plan Physical Therapy Treatment Plan Bed Mobility Training,Transfer Training,Gait Training, Therapeutic Exercise,Balance Retraining,Post Op Education, Discharge Planning,Hot or Cold Pack,Neuromuscular Re-ed, Coordination Retraining,Manual Therapy Other Recommendations and Next Treatment monitor BP; assess gait with Focus 4WW to determine if pt needs FWW for home(daughter states they have a FWW at home, the 4WW in the room is the pt's) Precautions Lumbar Precautions Log Roll,No Twisting,Limit Bending,Lifting Restriction of 10 lbs,Gait Belt above Incisional Area Recommendations To Nursing Amount of Assist Needed 1 Person Assist Discharge Recommendations PT Discharge Recommendations Home with 24/7 Assist Available,Home Health Transportation Needs at Discharge Private Vehicle
[2021-06-29] MEDS: MAGNESIUM OXIDE 400 MG TABLET PO (09:42)
[2021-06-29] MEDS: DULOXETINE 30 MG CAPSULE 60 MG PO (09:42)
[2021-06-29] MEDS: POTASSIUM CHLORIDE 10 MEQ TAB 20 MEQ PO (09:43)
[2021-06-29] MEDS: PANTOPRAZOLE 40 MG VIAL IV (09:43)
[2021-06-29] MEDS: DOCUSATE 100 MG CAPSULE PO (09:43)
[2021-06-29] MEDS: PRAMIPEXOLE 0.25 MG TABLET 0.125 MG PO (09:44)
[2021-06-29] MEDS: VANCOMYCIN 1,000 MG/200 ML PIGGYBACK 200 MG IV (09:44)
--- NOTE | 2021-06-29 11:31 | PC.NURSE ---
Day shift: This customs entry writer has taken over care of this Pt at this time ([id number]).
--- NOTE | 2021-06-29 11:41 | P.PN_ITS ---
Subjective Subjective Date Patient Seen: 06/29/21 Interval history: 86-year-old female status post T lift, we were asked to consult on for hypotension. Patient was transferred to the ICU. She was given IV hydration. Patient was placed on pressor. Cultures thus far have been negative. No source of infection identified. She is sitting up in a chair today. She has no specific complaints. Exam Vital Signs (past 8 hours): - 06/29/21 04:00 06/29/21 08:00 Temperature 97.5 F L 97.5 F L Pulse Rate 85 86 Respiratory Rate 17 18 Blood Pressure 132/63 147/67 H Pulse Oximetry 98 98 Oxygen Delivery Method Room Air Oxygen Flow Rate 0 Narrative Exam Narrative: Pleasant female sitting in a chair in no acute distress Resp Other: Lungs clear to auscultation Cardio Other: Cardiac exam: Regular rate and rhythm normal S1-S2 GI Other: Abdomen soft and nontender Extrem Other: Extremity no edema Objective Labs Result Diagrams: 06/29/21 04:30 06/29/21 04:30 Labs: Laboratory Results - last 24 hr 06/29/21 06/29/21 06/29/21 04:30 04:30 04:30 WBC 8.5 RBC 3.40 L Hgb 10.3 L Hct 30.8 L MCV 90.7 MCH 30.3 MCHC 33.5 RDW 13.3 Plt Count 226 Neut % (Auto) 70.8 Lymph % (Auto) 17.0 L [place] % (Auto) 9.0 Eos % (Auto) 2.8 Baso % (Auto) 0.4 Neut # (Auto) 6000 Lymph # (Auto) 1400 [place] # (Auto) 800 Eos # (Auto) 200 Baso # (Auto) 0 Sodium 135 L Potassium 3.6 Chloride 107 Carbon Dioxide 30 BUN 16 Creatinine 0.91 Estimated GFR 58.8 L BUN/Creatinine Ratio 17.6 Glucose 100 Calcium 8.1 L Total Bilirubin 0.6 AST 61 H ALT 21 Alkaline Phosphatase 98 Total Protein 5.3 L Albumin 2.7 L Globulin 2.6 Albumin/Globulin Ratio 1.0 Procalcitonin 0.09 PFSH Medical History Actinic keratosis Arm fracture, left (04/2021) Arthritis Back disorder Breast cancer Expressive aphasia Hearing loss HTN (hypertension) Hyponatremia Hypothyroid Insomnia Lyme disease Migraine Rheumatic fever without heart involvement TIA (transient ischemic attack) Surgical History History of carpal tunnel repair History of hysterectomy History of lumbar laminectomy History of total right hip replacement (06/09/20) Hx of bilateral cataract extraction Hx of repair of left rotator cuff Hx of tonsillectomy Status post bunionectomy Status post hysterectomy Status post knee surgery Status post partial mastectomy Family History Father Stroke Grandfather Stroke Social History household members: spouse Smoking Status: Never smoker alcohol intake: current (beer with dinner daily) Assessment & Plan Assessment & Plan narrative: Post operatie hypotension * Order made to provide a NS bolus * I have ordered scheduled po tylenol q 6 hours for fever and pain * d/c'd dilaudid q 2 hours as needed for pain. * Will provide on requested basis or consider switching to IV morphine for breakthrough pain. * she has po oxycodone for pain. * No further hypotension * Resume usual medication * Will sign off thank you very much for this consultation Time Spent With Patient Critical Care time: I spent a total of [] minutes of critical care time on this patient's care today; this time is exclusive of procedural time. Quality VTE Deep Vein Thrombosis/Pulmonary Embolism Present on Admission: No
[2021-06-29] MEDS: MAGNESIUM HYDROXIDE 30 ML UDC PO (11:47)
[2021-06-29] MEDS: LIOTHYRONINE 25 MCG TABLET PO (11:47)
--- NOTE | 2021-06-29 11:52 | OT.IP.TRT ---
Current Diagnoses Acute posthemorrhagic anemia (06/26/21) Other hypotension (06/26/21) Spondylolisthesis, lumbar region (06/26/21) Spinal stenosis, lumbar region with neurogenic claudication (06/26/21) Postlaminectomy syndrome, not elsewhere classified (06/26/21) Arthrodesis status (06/26/21) Surgery Performed Operation Date: 06/26/21 09:15 Actual Procedures p L3-4, L4-5 TLIF w. posterior instrumentation - Robot - Mark Anthony Robles MD Occupational Therapy Treatment Note M2 OT-IP Current Condition Start: 06/27/21 11:37 Freq: Status: Active Protocol: Document 06/27/21 11:37 [facility] (Rec: 06/27/21 11:57 [facility] [id number]) Occupational Therapy Current Condition Current Condition Evaluation Date 06/27/21 Treatment Diagnosis S/p L3-4 , L4-5 TLIF Diagnosis Onset Date 06/26/21 Post Operative Precautions Lumbar Precautions Log Roll,No Twisting,Limit Bending,Lifting Restriction of 10 lbs,Gait Belt above Incisional Area M3 OT- IP Subjective and Pain Start: 06/27/21 11:37 Freq: Status: Active Protocol: Document 06/29/21 12:09 [facility] (Rec: 06/29/21 12:18 [facility] [id number]) OT- Subjective Occupational Therapy Visit Type Type Treatment Note Visit Start Time 11:25 Visit Stop Time 11:52 Total Visit Minutes 27 Occupational Therapy Visit Comments Patient Comments Pt agreed to get up to use the bathroom. Pt's daughter present at the end of the session. Patient/Caregiver Goals to go home OT Pain Assessment Pain When Pain Assessed During Mobility Pain Present Pain Present Pain Reported Location low back Intensity 5 Scale Used Numeric (0 - 10) M4 OT- IP ADL's Start: 06/27/21 11:37 Freq: Status: Active Protocol: Document 06/29/21 12:09 [facility] (Rec: 06/29/21 12:18 [facility] [id number]) OT ADL-Grooming General Evaluation Grooming Ability Standby Assistance OT ADL-Oral Care General Eval Oral Care Ability Standby Assistance Comments Oral Care Comments Pt needing vc to spit into a cup to best follow her back precautions. OT ADL-Toileting General Evaluation Toileting Ability Total Assistance Areas Needing Assistance Empty Catheter or Colostomy Comments OT Toileting Comments Pt attempted to have a bowel movement and unable to at this time and tried to wipe to see if able to follow her back precautions. Pt unable to reach and will need assist. Pt's daughter aware that pt will need assist for all ADl needs at this time. OT ADL-Bathing Comments OT Bathing Comments Not performed. M5 OT- IP IADL's Start: 06/27/21 11:37 Freq: Status: Active Protocol: Document 06/27/21 11:37 [facility] (Rec: 06/27/21 11:57 [facility] [id number]) OT-Instrumental Activities of Daily Living Home Safety Awareness Home Safety Comments Pt is a bit confused at this time coming out of surgery and would be best to have someone assist her for all her needs. M6 OT- IP Functional Cognition Start: 06/27/21 11:37 Freq: Status: Active Protocol: Document 06/29/21 12:09 [facility] (Rec: 06/29/21 12:18 [facility] [id number]) Cognitive Factors Limiting Selfcare Function Cognitive Ability Level of Alertness Alert Patient Orientation Name,Place,Situation Attention Span Ability Capable of Focused Attention, Unable to Sustain Attention Ability to Follow Commands Able to Follow One Step Commands with Increased Time, Able to Follow One Step Commands with Repetition Safety Awareness Decreased Ability to Apply Precautions Cognitive Comments Cognitive Assessment Comments Pt doing better to get her words out today and states that she is feeling better. Pt needing constant cues to incorporate her back precautions at this time. M7 OT- IP Mobility and Balance Start: 06/27/21 11:37 Freq: Status: Active Protocol: Document 06/29/21 12:09 [facility] (Rec: 06/29/21 12:18 [facility] [id number]) OT- Bed Mobility Assessment Sit to Supine Sit to Supine Assist Moderate Assistance OT-Transfer Assessment Sit to and From Stand Sit to and from Stand Contact Guard Assistance Transfers Transfer Ability Contact Guard Assistance Technique Transfer Destination Bed,Chair,Toilet Transfer Technique Stand Step Pivot Devices Transfer Assistive Devices Gait Belt,4 Wheeled Walker Comments Mobility Comments VC to push up from the surface sitting on . Able to use her 4ww to get around and needing CGA and assist to push the IV pole. MODA to help get her legs back into bed. OT- Balance Assessment Sitting Balance and Reactions Static Sitting Balance Ability Good Dynamic Sitting Balance Ability Fair Standing Balance and Reactions Static Standing Balance Ability Fair M8 OT- IP Objective Assessments Start: 06/27/21 11:37 Freq: Status: Active Protocol: Document 06/27/21 11:37 [facility] (Rec: 06/27/21 11:57 [facility] [id number]) OT Gross Range of Motion Upper Extremity Range of Motion Assessment Left Impaired OT Strength Upper Extremity Strength Assessment Left Impaired OT-Muscle Tone Assessment Muscle Tone WNL Yes M9 OT- IP Assessment and Plan Start: 06/27/21 11:37 Freq: Status: Active Protocol: Document 06/29/21 12:09 [facility] (Rec: 06/29/21 12:18 [facility] [id number]) OT Summary Assessment and Plan Potential Rehabilitation Potential Good Analytic Complexity at Evaluation Low Summary OT Impairments Balance,Functional Cognition, Functional Mobility,Grooming, Dressing,Toileting,Bathing, Toilet Transfers,Shower Transfers Progress Towards Goals Progressing Toward Goals Assessment Summary Pt able attempted to have a bowel movement and did grooming while at the sink. Pt's has a supportive daughter who will assist with all her needs when pt medically stable . Goals Self-Feeding Goal Independent Grooming Goal Independent Dressing Goal Independent Toileting Goal Minimal Assistance Bathing Goal Standby Assistance Toilet Transfer Goal Independent Shower Transfer Goal Independent Days to Meet Goals 3 Frequency of Treatment Frequency Of Treatment Once a Day Treatment Plan OT Treatment Plan ADL Training,Functional Cognition Training,Functional Mobility,Patient/Family Education,Discharge Planning Other Treatment Recommendations and Next shower Treatment Focus Discharge Recommendations OT Discharge Recommendations Home with 03/01 Assist Available Home Equipment Needs shower chair Transportation Needs at Discharge Private Vehicle
--- NOTE | 2021-06-29 12:29 | P.DS_ITS ---
History of Present Illness History of Present Illness Date Patient Seen: 06/29/21 Time Patient Seen: 12:29 Chief complaint: TLIF Narrative: [address] [address] Operative Note Patient: Larissa Ibrahim MR#: [id number] : 1935 Acct:[id number] Age/Sex: 86 / F Operative Date/Time/Diagnoses Date of procedure: 06/26/21 Time of procedure: 10:00 Pre-op diagnosis: 1. L3-4, L4-5 spondylolisthesis 2. L3-4, L4-5 spinal stenosis with neurogenic claudication. 3. Hx of L3-4, L4-5 hemilaminectomy with epidural scarring Post-op diagnosis: same Procedure & Clinicians Procedure: 1. L3-4, L4-5 Postero-lateral and posterior interbody fusion 2. L3-4, L4-5 interbody cage placement. 3. L3-4, L4-5 decompressive laminectomy with bilateral facetecomies 4. L3-4, L4-5 Posterior segmental instrumentation 5. [place] of bone marrow from iliac crest 6. Utilization of microsurgical technique and operating microscope 7. Utilization of [employer] robotic navigation for surgery Same procedure as scheduled: Yes Indications: Patient has been having chronic back pain and worsening lumbar radiculopathy. Patient failed multiple conservative management with worsening pain weakness and numbness in her lower extremity.? Patient sustained multiple falls recently with progressively worsening extremity weakness left worse than right.? Patient has been having difficulty performing activity of daily living.? After discussing risks benefits of treatment options, patient elected proceed with surgery. Discharge Providers Provider Date of admission: 06/26/21 07:42 Discharge Date: 06/29/21 Primary care physician: Bobby Zuluaga MD Consults: 06/26/21 15:27 Consult to Occupational Therapy Evaluate & Treat Comment: Physician Instructions: Evaluate and treat Consult to Physical Therapy Evaluate & Treat Comment: Physician Instructions: Evaluate and Treat 06/28/21 01:53 Consult to Hospitalist Service Routine Comment: Consulting Provider: Mark Anthony Robles Reason for consultation: unable to get ahold of Dr. Robles 06/28/21 04:41 Consult After Hours PICC Line RN Stat Comment: Consult to Tele-database administration manager Routine Comment: Consulting Provider: Jackelyn Tele-intensivists Reason for consultation: Trimming Machine Operator services Has provider been notified: Yes 06/29/21 12:20 Consult to Home Health Routine Comment: s/p spine surgery Reason For Exam: Home Health for PT/OT Discharge provider: Savanna Horne PA-C Summary Hospital Course Discharge Diagnosis: s/p lumbar fusion Hospital Course: L3-4, L4-5 TLIF complicated by an episode of hypotension and mental status changes on the network control supervisor of POD# 2. Sepsis work up was negative, and she was successfully treated with withholding of narcotics and IV fluid boluses. On POD# 3 she was feeling well and wanted to go home. PT felt she was safe to discharge with standby assistance, which will be provided by her daughter, Patrizia. She did want some oxycodone for homegoing, as she had been taking this for pain control q HS prior to surgery. Status at Discharge Cognitive/behavioral status at discharge: at baseline, oriented Functional status at discharge: uses cane/walker Exam Vital Signs (past 8 hours): - 06/29/21 08:00 Temperature 97.5 F L Pulse Rate 86 Respiratory Rate 18 Blood Pressure 147/67 H Pulse Oximetry 98 Oxygen Delivery Method Room Air Oxygen Flow Rate 0 Narrative Exam Narrative: 5/5 strength and sensation to light touch intact throughout BLE. Calves soft, compressible, and nontender and without palpable cords or masses. Objective Labs Result Diagrams: 06/29/21 04:30 06/29/21 04:30 Labs: Laboratory Results - last 24 hr 06/29/21 06/29/21 06/29/21 04:30 04:30 04:30 WBC 8.5 RBC 3.40 L Hgb 10.3 L Hct 30.8 L MCV 90.7 MCH 30.3 MCHC 33.5 RDW 13.3 Plt Count 226 Neut % (Auto) 70.8 Lymph % (Auto) 17.0 L [place] % (Auto) 9.0 Eos % (Auto) 2.8 Baso % (Auto) 0.4 Neut # (Auto) 6000 Lymph # (Auto) 1400 [place] # (Auto) 800 Eos # (Auto) 200 Baso # (Auto) 0 Sodium 135 L Potassium 3.6 Chloride 107 Carbon Dioxide 30 BUN 16 Creatinine 0.91 Estimated GFR 58.8 L BUN/Creatinine Ratio 17.6 Glucose 100 Calcium 8.1 L Total Bilirubin 0.6 AST 61 H ALT 21 Alkaline Phosphatase 98 Total Protein 5.3 L Albumin 2.7 L Globulin 2.6 Albumin/Globulin Ratio 1.0 Procalcitonin 0.09 PFSH Medical History Actinic keratosis Arm fracture, left (04/2021) Arthritis Back disorder Breast cancer Expressive aphasia Hearing loss HTN (hypertension) Hyponatremia Hypothyroid Insomnia Lyme disease Migraine Rheumatic fever without heart involvement TIA (transient ischemic attack) Surgical History History of carpal tunnel repair History of hysterectomy History of lumbar laminectomy History of total right hip replacement (06/09/20) Hx of bilateral cataract extraction Hx of repair of left rotator cuff Hx of tonsillectomy Status post bunionectomy Status post hysterectomy Status post knee surgery Status post partial mastectomy Family History Father Stroke Grandfather Stroke Social History household members: spouse Smoking Status: Never smoker alcohol intake: current (beer with dinner daily) Discharge Assessment & Plan Assessment and Plan Assessment: s/p L3-4, L4-5 TLIF Plan of Treatment: Discharge home with home health PT/OT. Srinivasa for stability. Tylenol for pain control w/ oxycodone PRN at HS for breakthrough pain. Follow up in office in 2 weeks as scheduled. Discharge Plan Discharge Plan Patient Disposition: Home Health Service Discharge orders & Medications Prescriptions: New oxycodone 5 mg Tablet 5 mg PO BEDTIME PRN (Reason: pain, severe) Qty: 20 0RF acetaminophen 325 mg Tablet 650 mg PO Q6HR Qty: 120 0RF docusate sodium 100 mg Capsule 100 mg PO BID PRN (Reason: constipation) Qty: 60 0RF Continued magnesium oxide 400 MG capsule 400 mg PO Q DAY Qty: 0 0RF liothyronine 25 mcg Tablet 25 mcg PO DAILY 0RF Label Comments: patient unsure Rx Instructions: One tab at noon pramipexole 0.25 mg Tablet 0.125 mg PO BID 0RF Label Comments: not sure duloxetine 60 mg Capsule,Delayed Release(Dr/Ec) 60 mg PO BID 0RF Rx Instructions: unsure on meds-not today melatonin 5 mg Tablet 5 mg PO BEDTIME 0RF ibuprofen 200 mg Tablet 200 mg PO TID PRN (Reason: Pain) 0RF torsemide 20 mg Tablet 40 mg PO DAILY 0RF Label Comments: patient unsure if 2 days ago or if 2 years ago aspirin [Aspirin Low Dose] 81 mg Tablet,Delayed Release (Dr/Ec) 81 mg PO BEDTIME 0RF Label Comments: years ago? levothyroxine 25 mcg Tablet 12.5 mcg PO DAILY 0RF Label Comments: cant recall-package of meds finished last [so none over a week?} Rx Instructions: Takes at noon metoprolol succinate 25 mg Tablet Extended Release 24 Hr 25 mg PO DAILY 0RF Label Comments: meds [place] so nothing since left arimo 2 days ago potassium chloride 10 mEq tablet extended release 20 meq PO DAILY 0RF Discontinued alprazolam 0.25 mg Tablet 0.25 mg PO BEDTIME 0RF Label Comments: dont remember oxycodone 5 mg Tablet 5 mg PO Q4-6H PRN (Reason: Pain, Moderate (4-6)) Qty: 50 0RF Rx Instructions: 1 tab po every 4-6 hours as needed for severe pain. exempt. post op pain. Follow up/Referrals: Mark Anthony Robles MD [Physician] - (Follow up w/ Dr Robles as scheduled at [facility] on 07/07/2021 @ 1:30 pm) Bobby Zuluaga MD [Primary Care Provider] - Diet/Activity/Treatments Diet: Diet as Tolerated Activity: No deep bending (more than 90 degrees) or twisting at the waist. Use walker for stability. No lifting more than 10 pounds. Cold/Heat Therapy: Ice as needed to back for pain. Skin/Wound/Dressing Care Report to your healthcare provider any signs of infection, such as:: chills, fever, night sweats, increased pain, unusual drainage and unusual redness Dressing: Keep dressing clean and dry; will remove at first appointment with Dr Robles. If the dressing becomes wet or bloody inside, may take it off and replace with another clean, dry dressing (like a big band-aid). No soaking the incisions, like in a bath or hot tub. Visit Report/Discharge Packet Instructions: DI for Prescription Opioid Use, DI for Transforaminal Lumbar Interbody Fusion Stand Alone Forms: Surgery Discharge Discharge Data Primary Care Provider: Bobby Zuluaga VTE Deep Vein Thrombosis/Pulmonary Embolism Present on Admission: No
--- NOTE | 2021-06-29 14:03 | CM.DPC ---
DCP/continued: Reviewed chart. Spoke with orthopedics and they report patient is medically stable to d/c home with hh. Order obtained from orthopedics for home health for PT/OT. Met with patient and daughter both aware and agreeable. Only available agency on [place] is [facility]. Orders obtained and f2f signed and faxed to agency. Provided patient with brochure from HH agency. KARIE/Namita faxed requested information. P: Home with HH through [facility]. DELICIA
--- NOTE | 2021-06-29 14:07 | PC.NURSE ---
Day shift: Paperwork signed and all questions answered. Pt's Daughter (Patrizia) present for teachings. Went over dressing change info and gave Coversites to her if needed. MD scripts sent electronic by MD to Pt's pharmacy. [place] to ride [place] [address] home to [facility]. They have the boarding pass. Pt's dressing remains CDI. Griffiths removed today at approx 1230. CMS intact. SBA w/ FWW when ambulating. Pt will be taken in WC to car that her Daughter is driving at approx 1600 today.
--- NOTE | 2021-06-29 14:09 | CM.DPNOTE ---
Faxed referral packet to [facility] per Kendra. Tessa from [place] said they have accepted the pt. I will send her the face to face. Namita King CM Asst.
--- NOTE | 2021-06-29 14:29 | PT.IPTN ---
Current Diagnoses Acute posthemorrhagic anemia (06/26/21) Other hypotension (06/26/21) Spondylolisthesis, lumbar region (06/26/21) Spinal stenosis, lumbar region with neurogenic claudication (06/26/21) Postlaminectomy syndrome, not elsewhere classified (06/26/21) Arthrodesis status (06/26/21) Surgery Performed Operation Date: 06/26/21 09:15 Actual Procedures p L3-4, L4-5 TLIF w. posterior instrumentation - Robot - Mark Anthony Robles MD Physical Therapy Treatment Note M2 PT-IP Current Condition Start: 06/27/21 13:36 Freq: NEEDED Status: Discharge Protocol: Document 06/29/21 14:04 SP (Rec: 06/29/21 16:28 SP [id number]) Physical Therapy Current Condition Current Condition Evaluation Date 06/27/21 Treatment Diagnosis s/p L3-4, L4-5 fusion/lami; difficulty in walking Onset Date 06/26/21 M3 PT-IP Subjective Start: 06/27/21 13:36 Freq: NEEDED Status: Discharge Protocol: Document 06/29/21 14:04 SP (Rec: 06/29/21 16:28 SP [id number]) Subjective Physical Therapy Visit Type Type Treatment Note Visit Start Time 14:04 Visit Stop Time 14:29 Total Visit Minutes 25 Notes daughter present, completed caregiver training with assist during mobility required throughout tx. Number of [employer]ODUCE WR[employer]PER Visits 1 Physical Therapy Visit Comments Patient Comments Pt is in bed with daughter in room, she states she does have back pain but it is getting better, denies lightheadedness or dizziness Therapy Pain Assessment Pain When Pain Assessed During Mobility Pain Present Pain Present Pain Reported Location left foot - arch Description With Movement low back Scale Used not quantified Description With Movement Pain Behaviors Facial Grimacing Pain Management Techniques Distraction,Modification of Treatment,Re-positioning, Timing of Activity with Medications M4 PT-IP Mobility and Gait Start: 06/27/21 13:36 Freq: NEEDED Status: Discharge Protocol: Document 06/29/21 14:04 SP (Rec: 06/29/21 16:28 SP [id number]) PT-Bed Mobility Assessment Rolling Type of Rolling Log Rolling,Roll to Right Level of Assist Standby Assistance Supine to Sit Supine to Sit Minimal Assistance,Bedrails Scooting Scooting to Edge of Bed Standby Assistance PT-Transfer Assessment Sit to and From Stand Sit to and from Stand Contact Guard Assistance,1 Person Assistance,Use of Upper Extremities Equipment Transfer Assistive Device Gait Belt,4 Wheeled Walker Orthotic/Prosthetic Devices or Brace: No Transfers Transfer Destination Bed,Chair,Toilet Transfer Technique pt ambulated w/ 4WW Transfer Ability Level of Assist Contact Guard Assistance, Minimal Assistance,1 Person Assistance,Use of Upper Extremities Comments Mobility Comments LR R w/ bed rail has at home, SBA. R SL>sit Min a for trunk righting w/ use of bed rail and pull from supported hand for trunk righting, scoot to EOB self SBA. PT reported brief dizziness supine sit but went away within in seconds. Sit>stand CG- 5%A with cued/ ed for 4WW brake mgt prior to stand for safety then push from bed hip hinge over LEs to full stand, 5%A initially stability. Pt progressed gait to bathroom approx 10 ft CG- 5 %A with cues for squeeze brake mgt for safety pace movement forward/turn/ backing up to toilet, body closer to 4WW for more upright posture and apply 4WW brakes. Cued use of grab bar and toilet for slow hip hinge with straight back descent CGA. Good seated stability. Pt voided, requested assist for pericare from daughter. Pt sit>Stand from toilet use of grab bar and push from toilet to 4WW CGA. Ambulated to sink CG- 5%A with cues slow pacing and squeeze brakes as needed, positioning at side vs behind her and brakes applied for contact safety stationary balance, required contact counter for stability while washing hands. Pt wanted to walk further into hallway about 120 ft total CGA w/4WW, cued safety awareness of brake mgt squeezing if needed for pacing and turns, stable. Pt returned to room side step EOB w/ 4WW, cued brake mgt, stand >sit good reaching back, CGA descent. sit>R SLMod A for LE assist into bed>Supine SBA w/ bed rail. Cued pt and reminded daughter to tell pt maintain R SL then RL to for LB support and decrease LBP. Pt able to reposition self via bridge with cues pelvic lift with belly engagement. [employer] educated safety use of FWW at this time and person with her during mobility, daughter stated can borrow a walker and between spouse and her will be with pt all the time day/ night. Pt is ok to return home with spouse and daughter to assist her with mobility when medically cleared. Gait Assessment Gait Gait Assistance Required: Contact Guard Assist,Minimum Assistance,1 Person Assist Distance (Feet) 120 Able to Maintain Weight Bearing Status Yes During Gait Assistive Devices Assistive Device Gait Belt,4 Wheeled Walker Orthotic/Prosthetic Devices or Brace: No Gait Deviations General Gait Pattern Antalgic,Decreased Stride Length,Decreased Feet Clearance,Flexed Trunk,Lateral Trunk Lean Factors Limiting Gait Function Factors Limiting Gait Function Decreased Activity Tolerance, Decreased Strength,Difficulty Following Directions,Limited Range of Motion,Pain,Poor Balance,Poor Safety Awareness Comments Gait Comments pt unsteady at times with 4WW, safety use of gait belt needed CGA- 5A%A forward, turns, pivoting, cued for brake mgt safety concern. Recommended FWW, and daughter stated will able to get. Stair Climbing Assessment Comments Stair Climbing Comments not need assess PT-Balance Assessment Sitting Balance and Reactions Static Sitting Balance Ability Good Dynamic Sitting Balance Ability Good Standing Balance and Reactions Static Standing Balance Ability Good Dynamic Standing Balance Ability Poor Device Used 4WW M5 PT-IP Objective Assessments Start: 06/27/21 13:36 Freq: NEEDED Status: Discharge Protocol: Document 06/27/21 12:01 AB (Rec: 06/27/21 13:52 AB [id number]) Orientation Orientation/Cognition Level of Alertness Confusional State Orientation Name Language Function Ability Expressive Aphasia,Receptive Aphasia,Word Finding Difficulties,Hard of Hearing Safety Awareness Decreased Safety Awareness Gross Range of Motion Lower Extremity ROM Assessment Within Functional Limits Strength Lower Extremity Strength Hip 3+/5 Knee 4-/5 Sensation Assessment Sensation Gross Sensation WNL Muscle Tone Muscle Tone WNL Yes M6 PT-IP Treatment Start: 06/27/21 13:36 Freq: NEEDED Status: Discharge Protocol: Document 06/29/21 14:04 SP (Rec: 06/29/21 16:28 SP [id number]) Physical Therapy Treatment Education Education Provided Precautions,Safety Other Treatments Other Treatment Performed Extra time spent on safety use of 4WW and brake mgt, body closer, positioning, recommended use of FWW at this time and pt/ daughter agreed will be borrowing one. M7 PT-IP Assessment and Plan Start: 06/27/21 13:36 Freq: NEEDED Status: Discharge Protocol: Document 06/29/21 14:04 SP (Rec: 06/29/21 16:28 SP [id number]) PT Summary Assessment and Plan Potential Rehabilitation Potential Good Status of Condition at Evaluation Evolving Summary Impairments Pain,Strength,Balance, Cognition,Bed Mobility, Transfers,Gait,Activity Tolerance Progress Towards Goals Progressing Toward Goals,Slow Progress due to Pain,Slow Progress due to Activity Tolerance Assessment Summary Pt required [place] for mobility. CG- Min during transfers/ gait using 4WW, with max cues for safety brake mgt and positioning, required 5%A at times during gait and stationary stance at sink for mobility. Recommending FWW for home use, daughter stated is able to borrow one at this time. Pt requires 1 person assist during all mobility at this time and daughter stated her and spouse with be with pt / and support all required . Did have mild back pain with rolling and sit to stand. Pt is ok to return home 24/7 assist available when medically clearaed. Spouse will be there daytime, daughter through night and not far if needed during day. Pt would benefit from HHPT for strength, balance progression for functional independence with mobility. Goals Bed Mobility Goal Independent Transfer Goal Independent,Front Wheeled Walker Gait Goal Independent,Front Wheel Walker Gait Distance 200 Other Goals improve ambulation using 4WW 200 ft Days to Meet Goals 10 Frequency of Treatment Frequency Of Treatment Twice a Day Treatment Plan Physical Therapy Treatment Plan Bed Mobility Training,Transfer Training,Gait Training, Therapeutic Exercise,Balance Retraining,Post Op Education, Discharge Planning,Hot or Cold Pack,Neuromuscular Re-ed, Coordination Retraining,Manual Therapy Other Recommendations and Next Treatment Monitor BP, transfers, gait w/ Focus FWW Precautions Lumbar Precautions Log Roll,No Twisting,Limit Bending,Lifting Restriction of 10 lbs,Gait Belt above Incisional Area Recommendations To Nursing Amount of Assist Needed 1 Person Assist Discharge Recommendations PT Discharge Recommendations Home with 24/7 Assist Available,Home Health Equipment Needed for Home Before FWW- daughter will borrow one Discharge for home use Transportation Needs at Discharge Private Vehicle
[2021-06-29 16:04] VITALS: PULSE 82
--- NOTE | 2021-06-29 16:07 | PC.NURSE ---
Day shift: Pt left unit and going home with her daughter aPtrizia now ([id number]). See last note for more info
== END 2021-06-29 16:08 | disposition home health service (06) | DRG 453 ==
LOC: AC 06-28 01:53 → ICU 06-28 04:50
PROVIDERS: Internal Medicine; Nurse Practitioner Family; Admitting Provider Orthopaedic Surgery Orthopaedic Surgery of the Spine; Family Provider Nurse Practitioner Family; PCP Family Medicine; Referring Provider Orthopaedic Surgery Orthopaedic Surgery of the Spine; Visit Provider Orthopaedic Surgery Orthopaedic Surgery of the Spine
PROC: 0SG10AJ Fusion of 2 or more Lumbar Vertebral Joints with Interbody Fusion Device, Posterior Approach, Anterior Column, Open Approach (ICD-10-PCS; principal; 2021-06-26 09:15)
DX: M43.16 Spondylolisthesis, lumbar region (principal); G92.8 Other toxic encephalopathy; M48.062 Spinal stenosis, lumbar region with neurogenic claudication; M96.1 Postlaminectomy syndrome, not elsewhere classified; I95.9 Hypotension, unspecified; R41.82 Altered mental status, unspecified; R32 Unspecified urinary incontinence; I10 Essential (primary) hypertension; E03.9 Hypothyroidism, unspecified; Z20.822 Contact with and (suspected) exposure to COVID-19; Z51.81 Encounter for therapeutic drug level monitoring; M51.36 Other intervertebral disc degeneration, lumbar region
CPT/HCPCS: 36415; 36592; 71045; 72100; 72131; 76000; 80048; 80053; 81001; 82962; 83605; 83735; 84145; 85014; 85018; 85025; 85610; 85730; 87040; 87635; 87797; 94760; 97116; 97162; 97165; 97530; 97535; C9803; C1713; C9113; C9290; J0171; J0330; J0690; J0692; J1100; J1170; J2405; J2704; J3010